=== PATIENT | male | born 1935 | race Caucasian/White ===

== ENCOUNTER 2016-11-12 16:13 | Inpatient (IN) | payer MEDICARE, MEDICAID ==
[~2016-11-12] VITALS: Ht 167.6 cm; Wt 124.5 kg
[2016-11-17] MEDS ORDERED: APIX5TAB PO (17:04)
[2016-11-17] MEDS ORDERED: LISI10TA3 PO (17:04)
[2016-11-17] MEDS ORDERED: ROSU10 PO (17:04)
[2016-11-17] MEDS ORDERED: HYDR25TA5 PO (17:04)
[2016-11-17] MEDS ORDERED: POTA10CA PO (17:04)
[2016-11-17] MEDS ORDERED: METO25TA6 PO (17:04)
[2016-11-17] MEDS ORDERED: COLA100C3 PO (17:04)
--- NOTE | 2016-11-19 17:50 | MH ---
cc: Kathy BUCIO M.D. DATE OF ADMISSION 11/24/2016 ADMISSION DIAGNOSIS Osteoarthritic degeneration of the left knee now being admitted for left total knee arthroplasty. 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 PAST MEDICAL HISTORY Other past history the patient has a history of: 1. Previous stroke 6 months ago. 2. Heart disease. 3. Hypertension. 4. Kidney problems. 5. Pacemaker. 6. Sleep apnea. CURRENT MEDICATIONS Include: 1. Eliquis which stopped four days before surgery. 2. Lisinopril. 3. Amlodipine. 4. Metoprolol. 5. Crestor. 6. Potassium citrate. 7. Temazepam. 8. Hydrochlorothiazide. 9. Colace. 10. Metamucil. PAST SURGICAL HISTORY Previous surgery includes: 1. Heart bypass. 2. Pacemaker insertion. 3. Left knee surgery years ago. REVIEW OF SYSTEMS Noncontributory. FAMILY HISTORY Noncontributory. SOCIAL HISTORY He does not smoke or drink. ALLERGIES HE IS ALLERGIC TO VOLTAREN, LASIX AND SULFA. PHYSICAL EXAMINATION GENERAL: We find a 81-year male well-developed, well-nourished, alert and oriented times three complaining of pain his left knee. VITAL SIGNS: Blood pressure 120/72, pulse 73 and irregular, respirations 20, temperature 97.8, pulse oximetry 97% on room air. HEENT: Eyes PERRL, EOMI. Ears, nose, mouth clear. NECK: Supple. LUNGS: Clear. HEART: Irregular rate. ABDOMEN: Soft. Positive bowel sounds, nontender. EXTREMITIES: Reveal the left knee to have crepitance on range of motion. Range of motion is from -10 and short of full extension to 80 degrees of flexion. He is neurovascularly intact to his toes. IMPRESSION At this time is severe painful osteoarthritic degeneration left knee. PLAN Admission for left total knee arthroplasty today. The patient given prescription for postop pain control in the office and understands to use Hibiclens scrub and Bactroban preoperatively and plans on going to rehab after surgery. Kathy Bucio MD JRR/KK /4:47 PM /5:32 PM
[2016-11-25] MEDS ORDERED: SODIUM CHLORID 0.9% 500 ML IV SCH (06:30)
[2016-11-25] MEDS ORDERED: INSULIN HUMAN REGULAR 1,000 UNITS/10 ML VIAL SQ PRN (06:30)
[2016-11-25] MEDS ORDERED: METOPROLOL TARTRATE 25 MG TAB PO PRN (06:30)
[2016-11-25] MEDS ORDERED: LACTATED RINGER'S 1000 ML IV SCH (06:30)
[2016-11-25] MEDS ORDERED: POVIDONE IODINE 5% (ANTISEPSIS KIT) 4 APPLICATIONS TOPICAL ONE (06:30)
[2016-11-25] MEDS ORDERED: CHLORHEXIDINE GLUCONATE 2 % 1 PACK (2 CLOTHS) TOP ONE (06:30)
[2016-11-25] MEDS ORDERED: SODIUM CHLOR 0.9% 250 ML INJ 250 ML ONE (06:35)
[2016-11-25] MEDS ORDERED: VANCOMYCIN HCL 1000 MG VIAL ONE (06:35)
[2016-11-25 06:36] VITALS: BP 159/73; PULSE 75; RESP 20; TEMP 97.7; O2SAT 97
[2016-11-25] MEDS ORDERED: VANCOMYCIN 1000 MG/NS 250 ML (for <70 kg) IV SCH ×2 (06:45)
[2016-11-25] MEDS ORDERED: ceFAZolin 2 GM PREMIX 50 ML IV SCH (06:45)
[2016-11-25] MEDS ORDERED: AMLO10TA2 PO (06:47)
[2016-11-25] MEDS ORDERED: ceFAZolin INJ 1,000 MG VIAL ONE (07:04)
[2016-11-25] MEDS ORDERED: MIDAZOLAM HCL 5 MG/5 ML VIAL ONE (07:14)
[2016-11-25] MEDS ORDERED: DEXAMETHASONE SOD PHOS 4 MG/ML VIAL ONE (07:14)
[2016-11-25] MEDS ORDERED: FAMOTIDINE 20 MG/2 ML VIAL ONE (07:14)
[2016-11-25] MEDS ORDERED: BUPIVACAINE LIPOSO PF 1.3% INJ 20 ML, BUPIVACAINE PF 0.25% INJ 20 ML in SODIUM CHLORIDE... P-ARTICULR SCH (08:00)
[2016-11-25] MEDS ORDERED: TRANEXAMIC ACID INJ 1,135 MG in SODIUM CHLORIDE 0.9% INJ 100 ML IV SCH ×2 (08:00→11:00)
[2016-11-25] MEDS ORDERED: ACETAMINOPHEN 325 MG TAB PO PRN (08:30)
[2016-11-25] MEDS ORDERED: Post-op Orders (for Pharmacy) MISC XX ONE (08:30)
[2016-11-25] MEDS ORDERED: ACETAMINOPHEN/HYDROcodone 325 MG/7.5 MG TAB PO PRN (08:30)
[2016-11-25] MEDS ORDERED: NALOXONE HCL 0.4 MG/ML AMP IV PRN (08:30)
[2016-11-25] MEDS ORDERED: MORPHINE SULFATE 30 MG/30 ML PCA IV SCH (08:30)
[2016-11-25] MEDS ORDERED: TEMAZEPAM 15 MG CAP PO PRN (08:30)
[2016-11-25] MEDS ORDERED: TRANEXAMIC ACID INJ 0 MG in SODIUM CHLORIDE 0.9% INJ 100 ML IV SCH (08:30)
[2016-11-25] MEDS ORDERED: diphenhydrAMINE HCL 50 MG/ML VIAL IV PRN (08:30)
[2016-11-25] MEDS ORDERED: SODIUM CHLORIDE 0.9% FLUSH 5 ML FLUSH IVF PRN (08:30)
[2016-11-25] MEDS ORDERED: ONDANSETRON HCL 4 MG/2 ML VIAL IVP PRN (08:30)
[2016-11-25] MEDS ORDERED: MISC-163 (08:33)
[2016-11-25] MEDS ORDERED: WALKER WHEELS/F1 MIS (08:33)
[2016-11-25] MEDS ORDERED: CPMMACHINE (08:33)
[2016-11-25] MEDS: DOCUSATE SODIUM 100 MG CAP PO SCH ×2 (09:00→19:40)
[2016-11-25] MEDS: SODIUM CHLORIDE 0.9% FLUSH 5 ML FLUSH IVF SCH ×2 (09:00→19:40)
[2016-11-25] MEDS ORDERED: fentaNYL CITRATE 250 MCG/5 ML AMP ONE (11:08)
[2016-11-25] MEDS ORDERED: *morphine SULFATE 8 MG/ML PERIprocedure ONLY ONE (11:15)
[2016-11-25] MEDS: LACTATED RINGER'S 1000 ML INJ 1,000 ML IV SCH ×3 (11:23→21:10)
--- NOTE | 2016-11-25 11:31 | HHI.PR ---
Immediate Post Op Note Procedure Date: Nov 25, 2016 Pre Op Diagnosis: Osteoarthritic Degeneration Left Knee Post Op Diagnosis: Same Surgeon: Kathy Rodríguez MD City Magistrate(s): VIRGINIE Kincaid Procedure: Left Total Knee Arthroplasty Findings: Osteoarthritic Degeneration Left Knee Complications: None Specimen(s) removed: None Estimated blood loss: 200cc. Anesthesia: General Drains: None IVF (1100cc.) Tourniquet time (min at mmHg) N/A Patient to: PACU Patient Condition: Good Implant/Devices: Other (1. Concensus Femoral Component Size 5. 2. Concensus Tibial Component Size 4. 3. Concensus Patella Size 2. 4. Concensus Tibial Insert Size 3-4 , 16mm. ) Date/Time of Procedure: SEE SURGICAL CARE RECORD Elia Johnson Nov 25, 2016 11:31
[2016-11-25 12:00] VITALS: BP 106/56; PULSE 79; RESP 18; TEMP 96.2; O2SAT 95
[2016-11-25] MEDS ORDERED: BUPIVACAINE HCL PF 0.5% 30 ML VIAL NB ONE (12:25)
--- NOTE | 2016-11-25 12:50 | RADRPT ---
EXAM DATE/TIME: 11/25/2016 11:36 [facility] COMPARISON: No previous studies available for comparison. INDICATIONS : Post op left knee. MEDICAL HISTORY: Cardiovascular disease. SURGICAL HISTORY: None. ENCOUNTER: Initial ACUITY: 1 day PAIN SCORE: 8/10 LOCATION: Left knee. FINDINGS: The patient is status post left total knee arthroplasty. The prosthesis appears to be in good positi on. There is no acute fracture or dislocation. Surgical clips are noted along the medial aspect of the left leg likely related to previous saphenous vein harvesting. CONCLUSION: 1. Status post left total knee replacement with prosthesis in good position. Elia Santos MD on November 25, 2016 at 12:33 Board Certified Radiologist. This report was verified electronically.
--- NOTE | 2016-11-25 12:56 | PD.CONS ---
HPI Service [facility] Consult Requested By Doctor Xavier Bucio Reason for Consult Medical Management Primary Care Physician THERESA Cisneros Diagnoses: History of Present Illness This is a pleasant 81 y/o Male with CAD, OA, Hyperlipidemia, Hypertension, DANA, Atrial Fibrillation Dacosta's Palsy, who came with acute numbness and tingling of the left face and arm , seen in his bedroom in the presence of his Mrs. Pereira and his Niece Miss Vera, he has Severe Painful Osteoarthritic degeneration of the left knee brought in for scheduled procedure Leeft total knee arthroplasty, he has CHF and has Lasix as needed for Shortness of breath, will follow BMP for electrolyte replacement for tomorrow also will get BNP for tomorrow. he has 1000 ml fluid restriction. Past Family Social History Allergies: Coded Allergies: Lasix (Verified Allergy, Severe, ANAPHYLAXIS, 11/18/16) Seafood (Verified Allergy, Severe, 11/18/16) Voltaren (Verified Allergy, Severe, ANAPHYLAXIS, 11/18/16) MRI PRECAUTION (Verified Adverse Reaction, Severe, 11/18/16) PT HAS PACER Sulfa (Verified Adverse Reaction, Severe, HEAD ACHE, 11/18/16) Past Medical History CAD OA Hyperlipidemia Hypertension Obstructive Sleep Apnea Dacosta's Palsy Atrial Fibrillation Past Surgical History CABG Bladder Surgery removal Pacemaker placement Carpal tunnel surgery Reported Medications Reported Meds & Active Scripts Active Reported Amlodipine (Amlodipine Besylate) 10 Mg Tab 10 Mg PO DAILY Potassium Chloride ER (Potassium Chloride) 10 Meq Cap 10 Meq PO TID Crestor (Rosuvastatin Calcium) 10 Mg Tab 10 Mg PO HS Metoprolol Succinate ER 24 HR (Metoprolol Succinate) 25 Mg Tab 18.75 Mg PO DAILY PT STATES HE TAKES 3/4 OF 25MG TAB Lisinopril 10 Mg Tab 10 Mg PO DAILY Hydrochlorothiazide 25 Mg Tab 25 Mg PO DAILY PRN Colace (Docusate Sodium) 100 Mg Cap 100 Mg PO BID Eliquis (Apixaban) 5 Mg Tab 5 Mg PO BID Active Ordered Medications Current Medications Medications (Trade) Dose Ordered Sig/Salvador Route Start Time Stop Time Status Last Admin Lactated Ringer's 1,000 ml @ 30 mls/hr Q24H IV 11/25/16 06:30 11/25/16 06:30 (NS 500 ml Inj) 500 ml @ 30 mls/hr [id number] IV 11/25/16 06:30 11/26/16 06:29 (Betadine 7.5% Scrub) 1 applic ONCE TOP 11/25/16 06:45 11/28/16 06:44 Chlorhexidine Gluconate 1 applic 1 applic ONCE TOP 11/25/16 06:45 11/28/16 06:44 Tranexamic Acid 1135 mg/Sodium Chloride 111.35 ml @ 200 mls/ hr ONCE IV 11/25/16 08:00 11/25/16 14:00 11/25/16 09:03 (Exparel Pf 1.3% Inj/Marcaine Pf 0.25% Inj/NS Inj) 140 ml @ 200 mls/hr ONCE P-ARTICULR 11/25/16 08:00 11/25/16 14:00 11/25/16 09:02 (Norvasc) 10 mg DAILY PO 11/25/16 09:00 (Colace) 100 mg BID PO 11/25/16 09:00 (Hydrodiuril) 25 mg DAILY PRN PO 11/25/16 08:30 (Prinivil) 10 mg DAILY PO 11/26/16 09:00 (Toprol Xl) 18.75 mg DAILY PO 11/26/16 09:00 (KCl) 10 meq TID PO 11/25/16 09:00 Atorvastatin Calcium 20 mg 20 mg HS PO 11/25/16 21:00 (Lr 1000 ml Inj) 1,000 ml @ 80 mls/hr [id number] IV 11/25/16 08:27 11/25/16 11:23 (NS Flush) 2 ml UNSCH PRN IVF 11/25/16 08:30 IV Flush 2 ml 2 ml BID IVF 11/25/16 09:00 (Ancef Inj/NS Inj) 100 ml @ 200 mls/hr Q6H IV 11/25/16 14:00 11/26/16 02:29 (Lovenox Inj) 30 mg Q12H SQ 11/26/16 10:00 ([place] 7.5-325 Mg) 1 tab Q4H PRN PO 11/25/16 08:30 ([place] 7.5-325 Mg) 2 tab Q4H PRN PO 11/25/16 08:30 (Tylenol) 650 mg Q6H PRN PO 11/25/16 08:30 (Theragran M Tab) 1 tab BID PO 11/26/16 21:00 01/25/17 20:59 (Zofran Inj) 4 mg Q6H PRN IVP 11/25/16 08:30 (Colace) 100 mg BID PO 11/26/16 21:00 (Restoril) 15 mg HS PRN PO 11/25/16 08:30 (Narcan Inj) 0.4 mg UNSCH PRN IV 11/25/16 08:30 (Benadryl Inj) 25 mg Q6H PRN IV 11/25/16 08:30 (Morphine 1 Mg/ ml CLINICAL RN MANAGER) 30 mg UNSCH IV 11/25/16 08:30 11/25/16 11:25 CLINICAL RN MANAGER Dosage Infused (Pha) 1 Q8HR .XX 11/25/16 14:00 Family History Father at 63 of heart disease Mother in her mid 70s of heart disease and had history of TIAs Social History Occasional alcohol use denies other toxic habits. Physical Exam Vital Signs Vital Signs Date Time Temp Pulse Resp B/P Pulse Ox O2 Delivery O2 Flow Rate FiO2 11/25/16 12:00 79 16 114/57 94 Nasal Cannula 4 11/25/16 11:45 77 16 105/64 91 Nasal Cannula 4 11/25/16 11:30 79 16 107/59 93 Nasal Cannula 4 11/25/16 11:25 12 11/25/16 11:15 78 16 112/60 92 Nasal Cannula 4 11/25/16 11:00 99.0 91 16 142/84 91 Nasal Cannula 4 11/25/16 06:36 97.7 75 20 159/73 97 Physical Exam GENERAL: This is a well-nourished, well-developed patient, in no apparent distress. SKIN: No rashes, ecchymoses or lesions. Cool and dry. HEAD: Atraumatic. Normocephalic. No temporal or scalp tenderness. EYES: Pupils equal round and reactive. Extraocular motions intact. No scleral icterus. No injection or drainage. ENT: Nose without bleeding, purulent drainage or septal hematoma. Throat without erythema, tonsillar hypertrophy or exudate. Uvula midline. Airway patent. NECK: Trachea midline. No JVD or lymphadenopathy. Supple, nontender, no meningeal signs. CARDIOVASCULAR: Regular rate and rhythm without murmurs, gallops, or rubs. RESPIRATORY: Clear to auscultation. Breath sounds equal bilaterally. No wheezes , rales, or rhonchi. GASTROINTESTINAL: Abdomen soft, non-tender, nondistended. No hepato-splenomegaly , or palpable masses. No guarding. MUSCULOSKELETAL: Extremities without clubbing, cyanosis, or edema. No joint tenderness, effusion, or edema noted. No calf tenderness. Negative Homans sign bilaterally. NEUROLOGICAL: Awake and alert. Cranial nerves II through XII intact. Motor and sensory grossly within normal limits. Five out of 5 muscle strength in all muscle groups. Normal speech. Laboratory Laboratory Tests Test 11/25/16 06:33 Blood Type A POSITIVE Antibody Screen NEGATIVE Assessment and Plan Assessment and Plan 1. Severe OA, with Diagnosis of Osteoarthritic painful Degeneration of the Left Knee status post Left Total Knee Arthroplasty, by Doctor Xavier Bucio Pain management, Horizontal Drill Operator for Discharge planning and Physical Therapy. 2. Dacosta's Palsy by history 3. Atrial Fibrillation 4. Hypertension controlled. 5. Obstructive Sleep Apnea 6. CAD status post CABG x 4 7. CHF Mild reduction of Left Ventricular function EF 50% 8. Obesity strongly recommended diet and exercise as outpatient. DVT prophylaxis as per Orthopedic Surgery Continue present care follow BMP, Mag level, BNP in am tomorrow adjust IV fluids as needed to keep patient hydrated but avoid Overload will follow in three hours to try to titrate or remove IV fluids if patient eating well. Code Status Full Code Discussed Condition With Patient in the room, Mrs. Pereira and his Niece Miss Vera, nurse present in the room Harris Bustos MD Nov 25, 2016 12:56
[2016-11-25] MEDS: POTASSIUM CHLORIDE 10 MEQ CAP PO SCH ×2 (13:51→18:27)
[2016-11-25] MEDS: PCA - TOTAL MG MORPHINE DELIVERED PER SHIFT SCH ×2 (14:00→22:00)
[2016-11-25] MEDS ORDERED: ONDANSETRON HCL 4 MG/2 ML VIAL IV PUSH ONE (14:30)
[2016-11-25] MEDS ORDERED: ePHEDrine/NS 25 MG/5 ML SYR IV ONE (14:30)
[2016-11-25] MEDS ORDERED: LACTATED RINGER'S 1000 ML INJ 1,000 ML IV ONE (14:30)
[2016-11-25] MEDS ORDERED: PROPOFOL 200 MG/20 ML AMP IV ONE (14:30)
[2016-11-25] MEDS ORDERED: PHENYLEPH/NS 1000 MCG/10 ML SYR IV ONE (14:30)
[2016-11-25] MEDS ORDERED: NEOSTIGMINE 3 MG/3 ML SYR IV ONE (14:30)
[2016-11-25 16:00] VITALS: BP 115/56; PULSE 90; RESP 18; TEMP 96.1; O2SAT 97
[2016-11-25 17:04] VITALS: O2SAT 98
[2016-11-25] MEDS: ATORVASTATIN 20 MG TAB PO SCH (19:40)
[2016-11-25 20:30] VITALS: BP 129/65; PULSE 88; RESP 18; TEMP 97.2; O2SAT 95
[2016-11-26] VITALS (7 sets, daily range): BP systolic 96–147; BP diastolic 50–67; PULSE 71–95; RESP 17–19; TEMP 96.3–98.4; O2SAT 92–95
[2016-11-26] MEDS ORDERED: HYDROCHLOROTHIAZIDE 25 MG TAB PO ONE (00:45)
[2016-11-26] MEDS: CHLORHEXIDINE GLUCONATE 4% SOLN 120 ML BTL TOP SCH (04:26)
[2016-11-26] MEDS: POVIDONE IODINE 7.5% SCRUB 118 ML BOTTLE TOP SCH (04:26)
[2016-11-26 05:48] LABS: HEMATOCRIT 37.3 % (39.0-51.0); REVIEW FLAG FINAL
[2016-11-26] MEDS: PCA - TOTAL MG MORPHINE DELIVERED PER SHIFT SCH (05:52)
[2016-11-26 06:18] LABS: BICARBONATE 28.7 MEQ/L (21.0-32.0); MAGNESIUM 2.1 MG/DL (1.5-2.5); POTASSIUM 4.7 MEQ/L (3.5-5.1)
[2016-11-26] MEDS: POTASSIUM CHLORIDE 10 MEQ CAP PO SCH ×3 (08:08→17:31)
[2016-11-26] MEDS: DOCUSATE SODIUM 100 MG CAP PO SCH ×2 (08:08→19:30)
[2016-11-26] MEDS: LISINOPRIL 10 MG TAB PO SCH (08:08)
[2016-11-26] MEDS: SODIUM CHLORIDE 0.9% FLUSH 5 ML FLUSH IVF SCH ×2 (08:09→19:31)
--- NOTE | 2016-11-26 08:43 | PD.ORT.PN ---
Subjective Subjective Remarks pt comfortable today. Block still on. Objective Vitals Vital Signs Date Time Temp Pulse Resp B/P Pulse Ox O2 Delivery O2 Flow Rate FiO2 11/26/16 08:00 97.1 71 18 135/50 92 11/26/16 04:40 96.7 86 19 147/67 92 11/26/16 00:40 97.0 79 19 120/59 95 11/25/16 20:30 97.2 88 18 129/65 95 11/25/16 17:04 98 Nasal Cannula 2.00 11/25/16 16:00 96.1 90 18 115/56 97 11/25/16 14:00 15 11/25/16 12:00 79 16 114/57 94 Nasal Cannula 4 11/25/16 12:00 96.2 79 18 106/56 95 11/25/16 11:45 77 16 105/64 91 Nasal Cannula 4 11/25/16 11:30 79 16 107/59 93 Nasal Cannula 4 11/25/16 11:25 12 11/25/16 11:15 78 16 112/60 92 Nasal Cannula 4 11/25/16 11:00 99.0 91 16 142/84 91 Nasal Cannula 4 I/O 11/25/16 11/25/16 11/25/16 11/26/16 11/26/16 11/26/16 07:00 15:00 23:00 07:00 15:00 23:00 Intake Total 1200 ml 1173 ml 424 ml 480 ml Output Total 200 ml 175 ml 1000 ml Balance 1000 ml 998 ml 424 ml -520 ml Intake Oral 0 ml 360 ml 480 ml IV Total 100 ml 813 ml 424 ml Other 1100 ml Output Urine Total 0 ml 175 ml 1000 ml Estimated Blood Loss 200 ml Other 0 ml Bladder Scan Volume Amount 612 ml # Bowel Movements 0 0 Result Diagram: 11/26/16 0529 11/26/16 0529 Objective Remarks Dressing dry and intact. In bed at moment. No calf tenderness. Assessment & Plan Ortho Post Op Day #: 1 Problem List: Assessment and Plan OOB,PT, CPM, daily wound care. Kathy Bucio MD Nov 26, 2016 08:43
[2016-11-26] MEDS ORDERED: METOPROLOL SUCCINATE 25 MG EXTENDED RELEASE TAB PO SCH (09:00)
--- NOTE | 2016-11-26 09:23 | HHI.PR ---
Subjective Remarks This is a pleasant 81 y/o Male with CAD, OA, Hyperlipidemia, Hypertension, DANA, Atrial Fibrillation Dacosta's Palsy, who came with acute numbness and tingling of the left face and arm , seen in his bedroom in the presence of his Mrs. Pereira and his Niece Miss Vera, he has Severe Painful Osteoarthritic degeneration of the left knee brought in for scheduled procedure Leeft total knee arthroplasty, he has CHF and has Lasix as needed for Shortness of breath, will follow BMP for electrolyte replacement for tomorrow also will get BNP for tomorrow. he has 1000 ml fluid restriction. 11/26 stable seen in his bedroom and discussed with nurse Mr. Denton no nausea, vomit or diarrhea clean lungs, will continue low IV fluids in 30ml per hour and continue diet, due to mild increase in creatinine, following, BNP within normal limits, no volume overload. Objective Vital Signs Date Time Temp Pulse Resp B/P Pulse Ox O2 Delivery O2 Flow Rate FiO2 11/26/16 08:57 93 21 11/26/16 08:00 97.1 71 18 135/50 92 11/26/16 04:40 96.7 86 19 147/67 92 11/26/16 00:40 97.0 79 19 120/59 95 11/25/16 20:30 97.2 88 18 129/65 95 11/25/16 17:04 98 Nasal Cannula 2.00 11/25/16 16:00 96.1 90 18 115/56 97 11/25/16 14:00 15 11/25/16 12:00 79 16 114/57 94 Nasal Cannula 4 11/25/16 12:00 96.2 79 18 106/56 95 11/25/16 11:45 77 16 105/64 91 Nasal Cannula 4 11/25/16 11:30 79 16 107/59 93 Nasal Cannula 4 11/25/16 11:25 12 11/25/16 11:15 78 16 112/60 92 Nasal Cannula 4 11/25/16 11:00 99.0 91 16 142/84 91 Nasal Cannula 4 I/O 11/25/16 11/25/16 11/25/16 11/26/16 11/26/16 11/26/16 07:00 15:00 23:00 07:00 15:00 23:00 Intake Total 1200 ml 1173 ml 424 ml 480 ml Output Total 200 ml 175 ml 1000 ml Balance 1000 ml 998 ml 424 ml -520 ml Intake Oral 0 ml 360 ml 480 ml IV Total 100 ml 813 ml 424 ml Other 1100 ml Output Urine Total 0 ml 175 ml 1000 ml Estimated Blood Loss 200 ml Other 0 ml Bladder Scan Volume Amount 612 ml # Bowel Movements 0 0 Result Diagram: 11/26/16 0529 11/26/16 0529 Imaging Last Impressions Knee X-Ray 11/25/16 0827 Signed Impressions: Service Date/Time: Friday, November 25, 2016 11:36 - CONCLUSION: 1. Status post left total knee replacement with prosthesis in good position. Elia Santos MD Procedures Left Total Knee Arthroplasty, by Doctor Xavier Bucio 11/25/16 Other Results Laboratory Tests Test 11/25/16 11/26/16 06:33 05:29 Blood Type A POSITIVE Antibody Screen NEGATIVE Hemoglobin 12.3 GM/DL Hematocrit 37.3 % Sodium Level 138 MEQ/L Potassium Level 4.7 MEQ/L Chloride Level 102 MEQ/L Carbon Dioxide Level 28.7 MEQ/L Anion Gap 7 MEQ/L Blood Urea Nitrogen 30 MG/DL Creatinine 1.33 MG/DL Estimat Glomerular Filtration 52 ML/MIN Rate Random Glucose 126 MG/DL Calcium Level 8.2 MG/DL Magnesium Level 2.1 MG/DL B-Type Natriuretic Peptide 93 PG/ML Objective Remarks GENERAL: Morbid Obesity. SKIN: No rashes, ecchymoses or lesions. Cool and dry. HEAD: Atraumatic. Normocephalic. No temporal or scalp tenderness. EYES: Pupils equal round and reactive. Extraocular motions intact. No scleral icterus. No injection or drainage. ENT: Nose without bleeding, purulent drainage or septal hematoma. Throat without erythema, tonsillar hypertrophy or exudate. Uvula midline. Airway patent. NECK: Trachea midline. No JVD or lymphadenopathy. Supple, nontender, no meningeal signs. CARDIOVASCULAR: Regular rate and rhythm without murmurs, gallops, or rubs. RESPIRATORY: Clear to auscultation. Breath sounds equal bilaterally. No wheezes , rales, or rhonchi. GASTROINTESTINAL: Abdomen soft, non-tender, nondistended. No hepato-splenomegaly , or palpable masses. No guarding. MUSCULOSKELETAL: left knee with Orthotics. NEUROLOGICAL: Awake and alert. Medications and IVs Current Medications Medications (Trade) Dose Ordered Sig/Salvador Route Start Time Stop Time Status Last Admin (Betadine 7.5% Scrub) 1 applic ONCE TOP 11/25/16 06:45 11/28/16 06:44 (Hibiclens 4% Top Soln) 1 applic ONCE TOP 11/25/16 06:45 11/28/16 06:44 (Norvasc) 10 mg DAILY PO 11/25/16 09:00 11/26/16 08:08 (Colace) 100 mg BID PO 11/25/16 09:00 11/26/16 08:08 (Hydrodiuril) 25 mg DAILY PRN PO 11/25/16 08:30 (Prinivil) 10 mg DAILY PO 11/26/16 09:00 11/26/16 08:08 (Toprol Xl) 18.75 mg DAILY PO 11/26/16 09:00 (KCl) 10 meq TID PO 11/25/16 09:00 11/26/16 08:08 Atorvastatin Calcium 20 mg 20 mg HS PO 11/25/16 21:00 11/25/16 19:40 (Lr 1000 ml Inj) 1,000 ml @ 30 mls/hr Q24H IV 11/25/16 08:27 11/25/16 11:23 (NS Flush) 2 ml UNSCH PRN IVF 11/25/16 08:30 (NS Flush) 2 ml BID IVF 11/25/16 09:00 11/26/16 08:09 (Lovenox Inj) 30 mg Q12H SQ 11/26/16 10:00 ([place] 7.5-325 Mg) 1 tab Q4H PRN PO 11/25/16 08:30 ([place] 7.5-325 Mg) 2 tab Q4H PRN PO 11/25/16 08:30 (Tylenol) 650 mg Q6H PRN PO 11/25/16 08:30 (Theragran M Tab) 1 tab BID PO 11/26/16 21:00 01/25/17 20:59 (Zofran Inj) 4 mg Q6H PRN IVP 11/25/16 08:30 (Restoril) 15 mg HS PRN PO 11/25/16 08:30 (Narcan Inj) 0.4 mg UNSCH PRN IV 11/25/16 08:30 11/26/16 13:00 (Benadryl Inj) 25 mg Q6H PRN IV 11/25/16 08:30 11/26/16 13:00 (Morphine 1 Mg/ ml PRIVATE DUTY RN) 30 mg UNSCH IV 11/25/16 08:30 11/26/16 13:00 11/25/16 11:25 PRIVATE DUTY RN Dosage Infused (Pha) 1 Q8HR .XX 11/25/16 14:00 11/26/16 13:00 11/26/16 05:52 A/P Assessment and Plan 1. Severe OA, with Diagnosis of Osteoarthritic painful Degeneration of the Left Knee status post Left Total Knee Arthroplasty, by Doctor Xavier Bucio Pain management, Product Applications Engineer for Discharge planning and Physical Therapy. 2. Dacosta's Palsy by history 3. Atrial Fibrillation has 4. Hypertension controlled. 5. Obstructive Sleep Apnea not using CPAP. 6. CAD status post CABG x 4 7. CHF Mild reduction of Left Ventricular function EF 50% 8. Morbid Obesity strongly recommended diet and exercise as outpatient. weight loss warranted. 9. Mild increase in Creatinine today more liberal in fluid intake following for volume overload. DVT prophylaxis Lovenox. adjust IV fluids as needed to keep patient hydrated but avoid Overload will follow Code Status Full Code Discussed Condition With Patient in the room and nurse Mr. Denton. Discharge Planning as per his attending physician, Harris Bustos MD Nov 26, 2016 09:23
[2016-11-26] MEDS: METOPROLOL SUCCINATE 25 MG EXTENDED RELEASE TAB PO SCH (10:00)
[2016-11-26] MEDS: ENOXAPARIN SODIUM 30 MG/0.3 ML SYRINGE SQ SCH ×2 (10:22→21:42)
[2016-11-26] MEDS: ACETAMINOPHEN/HYDROcodone 325 MG/7.5 MG TAB PO PRN ×2 (13:00→17:31)
[2016-11-26] MEDS: ATORVASTATIN 20 MG TAB PO SCH (19:30)
[2016-11-26] MEDS: MULTIVITAMINS/MINERALS THERAPEUTIC TAB PO SCH (19:30)
[2016-11-26] MEDS: LACTATED RINGER'S 1000 ML INJ 1,000 ML IV SCH (19:31)
[2016-11-26] MEDS ORDERED: DOCUSATE SODIUM 100 MG CAP PO SCH (21:00)
[2016-11-27] VITALS (8 sets, daily range): BP systolic 123–158; BP diastolic 59–76; PULSE 72–105; RESP 17–18; TEMP 96.6–99.2; O2SAT 93–95
--- NOTE | 2016-11-27 01:40 | RADRPT ---
EXAM DATE/TIME: 11/27/2016 00:53 [facility] COMPARISON: No previous studies available for comparison. INDICATIONS : Abdominal pain and nausea. MEDICAL HISTORY : Gallstones. Renal disease. Bladder stones. SURGICAL HISTORY : Urinary bladder stone removal. Lithotripsy. ENCOUNTER: Initial ACUITY: 1 day PAIN SCORE: 8/10 LOCATION: all quadrants. FINDINGS: Limited secondary to body habitus. There are dilated loops of small bowel seen. There is colonic gas present. A developing small bowel obstruction or ileus are differential diagnostic considerations. Os seous structures are intact. CONCLUSION: Dilated small bowel loops with colonic gas seen. Ileus versus developing small bowel obstruction. Alonso Reyes MD on November 27, 2016 at 1:38 Board Certified Radiologist. This report was verified electronically.
--- NOTE | 2016-11-27 01:40 | RADRPT ---
EXAM DATE/TIME: 11/27/2016 00:50 [facility] COMPARISON: CHEST SINGLE AP, August 01, 2015, 8:38. INDICATIONS : Short of breath. MEDICAL HISTORY : Hypercholesterolemia. Congestive heart failure. Myocardial infarction. Cardiac arrhythmia. Hypertensi on. Hyperlipidemia. A-Fib. SURGICAL HISTORY : CABG. Pacemaker. Left GSV removed for caridac surgery. Urinary bladder stone removal. Lithotripsy. ENCOUNTER: Initial ACUITY: 1 day PAIN SCORE: 0/10 LOCATION: Bilateral chest FINDINGS: Sternotomy wires are present. Pacer device from a left subclavian transvenous approach noted. Old rig ht sixth posterior rib fracture. Atelectatic changes at the lung bases. Cardiomegaly. CONCLUSION: Mild basilar atelectasis. Alonso Reyes MD on November 27, 2016 at 1:39 Board Certified Radiologist. This report was verified electronically.
[2016-11-27 01:44] LABS: AUTOMATED NEUTROPHIL # 7.7 TH/MM3 (1.8-7.7); BASOPHIL % 0.3 % (0.0-2.0); EOSINOPHIL % 0.2 % (0.0-4.0); HEMATOCRIT 36.6 % (39.0-51.0); LYMPH % 6.8 % (9.0-44.0); LYMPHOCYTE # 0.7 TH/MM3 (1.0-4.8); MEAN CELL VOLUME 76.3 FL (80.0-100.0); MEAN CORPUSCULAR HEMOGLOBIN 24.5 PG (27.0-34.0); MEAN CORPUSCULAR HGB CONC 32.1 % (32.0-36.0); MONO % 12.4 % (0.0-8.0); NEUT % 80.3 % (16.0-70.0); PLATELET COUNT 163 TH/MM3 (150-450); RED CELL DISTRIBUTION WIDTH 15.2 % (11.6-17.2); WHITE BLOOD COUNT 9.5 TH/MM3 (4.0-11.0)
[2016-11-27 01:45] LABS: HEMO FLAGS AUTO DIFF
[2016-11-27 02:01] LABS: ALT (GPT) 17 U/L (12-78); ANION GAP 8 MEQ/L (5-15); AST (GOT) 19 U/L (15-37); BICARBONATE 30.4 MEQ/L (21.0-32.0); BLOOD UREA NITROGEN 29 MG/DL (7-18); CHLORIDE 100 MEQ/L (98-107); GLOMERULAR FILTRATION RATE 57 ML/MIN (>89); MAGNESIUM 2.1 MG/DL (1.5-2.5); POTASSIUM 4.3 MEQ/L (3.5-5.1); SODIUM (NA) 138 MEQ/L (136-145)
[2016-11-27 02:04] LABS: ALKALINE PHOSPHATASE 67 U/L (45-117); TOTAL BILIRUBIN ADULT 0.6 MG/DL (0.2-1.0)
[2016-11-27 02:25] LABS: OVALOCYTES 2+ (NORMAL); SCAN/DIFF AUTO DIFF CONFIRMED
[2016-11-27 02:41] LABS: BLOOD, URINE NEG (NEG); COMMENT (UR) CULTURE INDICATED; CULTURE IF INDICATED CULTURE INDICATED; GLUCOSE,URINE NEG (NEG); KETONE, URINE NEG (NEG); MUCUS URINE FEW /lpf (OCC); NITRITE,URINE NEG (NEG); SQUAMOUS EPITHELIAL CELL URINE <1 /hpf (0-5); URINE COLOR YELLOW (YELLW/STRAW)
[2016-11-27] MEDS: CHLORHEXIDINE GLUCONATE 4% SOLN 120 ML BTL TOP SCH (03:02)
[2016-11-27] MEDS: POVIDONE IODINE 7.5% SCRUB 118 ML BOTTLE TOP SCH (03:02)
[2016-11-27 06:09] LABS: HEMATOCRIT 36.1 % (39.0-51.0); REVIEW FLAG FINAL
[2016-11-27 06:31] LABS: BICARBONATE 28.9 MEQ/L (21.0-32.0); POTASSIUM 4.3 MEQ/L (3.5-5.1)
[2016-11-27] MEDS: ENOXAPARIN SODIUM 30 MG/0.3 ML SYRINGE SQ SCH ×2 (08:30→22:11)
[2016-11-27] MEDS: LISINOPRIL 10 MG TAB PO SCH (08:31)
[2016-11-27] MEDS: POTASSIUM CHLORIDE 10 MEQ CAP PO SCH ×3 (08:31→17:00)
[2016-11-27] MEDS: MULTIVITAMINS/MINERALS THERAPEUTIC TAB PO SCH ×2 (08:31→20:16)
[2016-11-27] MEDS: DOCUSATE SODIUM 100 MG CAP PO SCH ×2 (08:32→20:15)
[2016-11-27] MEDS: SODIUM CHLORIDE 0.9% FLUSH 5 ML FLUSH IVF SCH ×2 (08:32→20:16)
[2016-11-27] MEDS: METOPROLOL SUCCINATE 25 MG EXTENDED RELEASE TAB PO SCH (08:33)
[2016-11-27] MEDS: ACETAMINOPHEN/HYDROcodone 325 MG/7.5 MG TAB PO PRN (08:34)
[2016-11-27] MEDS: HYDROCHLOROTHIAZIDE 25 MG TAB PO PRN ×2 (08:37→08:39)
[2016-11-27] MEDS ORDERED: BACITRACIN OINT 0.9 GM PKT TOP PRN (10:15)
--- NOTE | 2016-11-27 11:44 | PD.ORT.PN ---
Subjective Subjective Remarks pt complaining of nausea today. Left knee is doing well. Objective Vitals Vital Signs Date Time Temp Pulse Resp B/P Pulse Ox O2 Delivery O2 Flow Rate FiO2 11/27/16 07:56 98.5 91 18 158/70 95 11/27/16 06:41 72 11/27/16 04:26 97.3 88 17 123/59 93 11/27/16 00:31 99.2 105 18 134/76 93 11/26/16 20:40 98.4 91 17 129/60 92 11/26/16 16:00 96.3 90 18 102/62 93 11/26/16 12:00 96.3 95 18 96/58 95 I/O 11/26/16 11/26/16 11/26/16 11/27/16 11/27/16 11/27/16 07:00 15:00 23:00 07:00 15:00 23:00 Intake Total 424 ml 1080 ml 480 ml 530 ml Output Total 1600 ml 525 ml 525 ml Balance 424 ml -520 ml -45 ml 5 ml Intake Oral 1080 ml 480 ml 240 ml IV Total 424 ml 290 ml Output Urine Total 1600 ml 525 ml 525 ml Bladder Scan Volume Amount 144 ml # Bowel Movements 0 0 Result Diagram: 11/27/16 0530 11/27/16 0530 Imaging Last 24 hours Impressions Chest X-Ray 11/27/16 0000 Signed Impressions: Service Date/Time: November 00:50 - CONCLUSION: Mild basilar atelectasis. Alonso Reyes MD Abdomen X-Ray 11/27/16 0000 Signed Impressions: Service Date/Time: November 00:53 - CONCLUSION: Dilated small bowel loops with colonic gas seen. Ileus versus developing small bowel obstruction. Alonso Reyes MD Objective Remarks Dressing dry and intact. In bed at moment. No calf tenderness. Medical checking for ileus. Assessment & Plan Ortho Post Op Day #: 2 Problem List: Assessment and Plan OOB,PT, CPM, daily wound care. Medical management for possible ileus. Kathy Bucio MD Nov 27, 2016 11:44
[2016-11-27] MEDS: PANTOPRAZOLE SODIUM 40 MG VIAL IV PUSH SCH (12:24)
[2016-11-27] MEDS: SODIUM CHLOR 0.9% 1000 ML INJ 1,000 ML IV SCH (12:24)
--- NOTE | 2016-11-27 16:09 | HHI.PR ---
Subjective Remarks f/u for medical management. Patient c/o abdominal pain since yesterday. + nauseated and decreased appetite. Denied any emesis. Patient is making flatus and has hiccups. Objective Vitals Vital Signs Date Time Temp Pulse Resp B/P Pulse Ox O2 Delivery O2 Flow Rate FiO2 11/27/16 12:00 96.6 92 18 149/68 95 11/27/16 07:56 98.5 91 18 158/70 95 11/27/16 06:41 72 11/27/16 04:26 97.3 88 17 123/59 93 11/27/16 00:31 99.2 105 18 134/76 93 11/26/16 20:40 98.4 91 17 129/60 92 I/O 11/26/16 11/26/16 11/26/16 11/27/16 11/27/16 11/27/16 07:00 15:00 23:00 07:00 15:00 23:00 Intake Total 424 ml 1080 ml 480 ml 530 ml 211 ml Output Total 1600 ml 525 ml 525 ml Balance 424 ml -520 ml -45 ml 5 ml 211 ml Intake Oral 1080 ml 480 ml 240 ml IV Total 424 ml 290 ml 211 ml Output Urine Total 1600 ml 525 ml 525 ml Bladder Scan Volume Amount 144 ml # Bowel Movements 0 0 Result Diagram: 11/27/1652911/27/16529 Objective Remarks GENERAL: in NAD CARDIOVASCULAR: Regular rate and rhythm without murmurs, gallops, or rubs. RESPIRATORY: Breath sounds equal bilaterally. No accessory muscle use. GASTROINTESTINAL: Abdomen soft, non-tender, + TTP in epigastric area. no peritoneal signs. decrease BS. MUSCULOSKELETAL: No cyanosis, or edema. BACK: Nontender without obvious deformity. No CVA tenderness. Medications and IVs Current Medications Lactated Ringer's 1,000 ml @ 30 mls/hr Q24H IV Last administered on 11/25/16t 06:30; Start 11/25/16 at 06:30; Stop 11/25/16 at 20:49; Status DC Sodium Chloride (NS 500 ml Inj) 500 ml @ 30 mls/hr [id number] IV ; Start 11/25/16 at 06:30; Stop 11/25/16 at 20:49; Status DC Insulin Human Regular (NovoLIN R INJ) See Protocol Table ... UNSCH X1 PRN SQ SEE PROTOCOL; Start 11/25/16 at 06:30; Stop 11/25/16 at 20:49; Status DC Metoprolol Tartrate (Lopressor) 25 mg UNSCH X1 PRN PO SEE LABEL COMMENTS; Start 11/25/16 at 06:30; Stop 11/25/16 at 20:49; Status DC Chlorhexidine Gluconate (Chlorhexidine 2% Cloth) USE 3 PACKS FOR BATH O... ONCE ONCE TOP ; Start 11/25/16 at 06:30; Stop 11/25/16 at 06:35; Status DC Povidone Iodine (Betadine 5% Antisepsis Kit) APPLY TO EACH NARE AT LEAST ONE H... ONCE ONCE TOPICAL ; Start 11/25/16 at 06:30; Stop 11/25/16 at 06:36; Status DC Povidone Iodine (Betadine 7.5% Scrub) 1 applic ONCE TOP ; Start 11/25/16 at 06: 45; Stop 11/28/16 at 06:44 Chlorhexidine Gluconate 1 applic 1 applic ONCE TOP ; Start 11/25/16 at 06:45; Stop 11/28/16 at 06:44 Cefazolin Sodium/ Dextrose 50 ml @ 100 mls/hr ROOF TRUSS MACHINE TENDER IV ; Start 11/25/16 at 06:45; Stop 11/28/16 at 06:44 Vancomycin HCl 1000 mg/Sodium Chloride 250 ml @ 250 mls/hr ROOF TRUSS MACHINE TENDER IV Last administered on 11/25/16 06:42; Start 11/25/16 at 06:45; Stop 11/28/16 at 06:44 Tranexamic Acid 1135 mg/Sodium Chloride 111.35 ml @ 200 mls/ hr ONCE IV Last administered on 11/25/16 09:03; Start 11/25/16 at 08:00; Stop 11/25/16 at 14:00 ; Status DC Tranexamic Acid 1135 mg/Sodium Chloride 111.35 ml @ 200 mls/ hr ONCE IV Last administered on 11/25/16 11:24; Start 11/25/16 at 11:00; Stop 11/25/16 at 12:00 ; Status DC Bupivacaine Liposome 20 ml/ Bupivacaine HCl 20 ml/Sodium Chloride 140 ml @ 200 mls/hr ONCE P-ARTICULR Last administered on 11/25/16 09:02; Start 11/25/16 at 08:00; Stop 11/25/16 at 14:00; Status DC Sodium Chloride (NS 250 ml Inj) 250 ml @ As Directed STK-MED ONCE .ROUTE ; Start 11/25/16 at 06:35; Stop 11/25/16 at 06:36; Status DC Vancomycin HCl (Vancomycin Inj) 1,000 mg STK-MED ONCE .ROUTE ; Start 11/25/16 at 06:35; Stop 11/25/16 at 06:36; Status DC Cefazolin Sodium (Ancef Inj) 2,000 mg STK-MED ONCE .ROUTE Last administered on 11/25/16 07:59; Start 11/25/16 at 07:04; Stop 11/25/16 at 07:05; Status DC Midazolam HCl (Versed Inj) 5 mg STK-MED ONCE .ROUTE Last administered on 07:16; Start 11/25/16 at 07:14; Stop 11/25/16 at 07:15; Status DC Famotidine (Pepcid Inj) 20 mg STK-MED ONCE .ROUTE Last administered on 07:19; Start 11/25/16 at 07:14; Stop 11/25/16 at 07:15; Status DC Dexamethasone Sodium Phosphate (Decadron Inj) 4 mg STK-MED ONCE .ROUTE Last administered on 11/25/16 07:18; Start 11/25/16 at 07:14; Stop 11/25/16 at 07:15 ; Status DC Amlodipine Besylate (Norvasc) 10 mg DAILY PO Last administered on 11/27/16 08: 32; Start 11/25/16 at 09:00 Docusate Sodium (Colace) 100 mg BID PO Last administered on 11/26/16 19:30; Start 11/25/16 at 09:00 Hydrochlorothiazide (Hydrodiuril) 25 mg DAILY PRN PO BLOATING Last administered on 11/27/16 08:39; Start 11/25/16 at 08:30 Lisinopril (Prinivil) 10 mg DAILY PO Last administered on 11/27/16 08:31; Start 11/26/16 at 09:00 Metoprolol Succinate (Toprol Xl) 18.75 mg DAILY PO ; Start 11/26/16 at 09:00; Stop 11/26/16 at 09:56; Status DC Potassium Chloride (KCl) 10 meq TID PO Last administered on 11/27/16 12:24; Start 11/25/16 at 09:00 Atorvastatin Calcium 20 mg 20 mg HS PO Last administered on 11/26/16 19:30; Start 11/25/16 at 21:00 Lactated Ringer's (Lr 1000 ml Inj) 1,000 ml @ 30 mls/hr Q24H IV Last administered on 11/25/16 11:23; Start 11/25/16 at 08:27; Stop 11/27/16 at 11:46 ; Status DC IV Flush (NS Flush) 2 ml UNSCH PRN IVF FLUSH AFTER USING IV ACCESS; Start 11/25 at 08:30 IV Flush 2 ml 2 ml BID IVF Last administered on 11/27/16 08:32; Start at 09:00 Cefazolin Sodium/ Sodium Chloride (Ancef Inj/NS Inj) 100 ml @ 200 mls/hr Q6H IV Last administered on 11/26/16 01:55; Start 11/25/16 at 14:00; Stop at 02:29; Status DC Miscellaneous Information (Post-op Orders (for Pharmacy)) STAT ONCE XX ; Start 11/25/16 at 08:30; Stop 11/25/16 at 11:43; Status DC Enoxaparin Sodium (Lovenox Inj) 30 mg Q12H SQ Last administered on 11/27/16 08 :30; Start 11/26/16 at 10:00 Acetaminophen/ Hydrocodone Bitart (Crescent 7.5-325 Mg) 1 tab Q4H PRN PO PAIN LESS THAN 5 ON SCALE Last administered on 11/27/16 08:34; Start 11/25/16 at 08: 30 Acetaminophen/ Hydrocodone Bitart (Crescent 7.5-325 Mg) 2 tab Q4H PRN PO PAIN SCALE 5 TO 10; Start 11/25/16 at 08:30 Acetaminophen 650 mg 650 mg Q6H PRN PO pain and temp over 101; Start 11/25/16 at 08:30 Tranexamic Acid/ Sodium Chloride (Cyklokapron Inj/ NS Inj) 100 ml @ 200 mls/hr UNSCH IV ; Start 11/25/16 at 08:30; Stop 11/25/16 at 10:33; Status DC Multivitamins/ Minerals Therapeutic (Theragran M Tab) 1 tab BID PO Last administered on 11/27/16 08:31; Start 11/26/16 at 21:00; Stop 01/25/17 at 20:59 Ondansetron HCl (Zofran Inj) 4 mg Q6H PRN IVP NAUSEA OR VOMITING Last administered on 11/26/16 23:10; Start 11/25/16 at 08:30 Docusate Sodium (Colace) 100 mg BID PO ; Start 11/26/16 at 21:00; Stop 11/26/16 at 21:00; Status DC Temazepam (Restoril) 15 mg HS PRN PO SLEEP; Start 11/25/16 at 08:30 Bacitracin (Bacitracin Oint Packet) 0.9 gm UNSCH X1 PRN TOP WOUND CARE; Start 11/27/16 at 10:15; Stop 11/29/16 at 10:14 Naloxone HCl (Narcan Inj) 0.4 mg UNSCH PRN IV RESPIRATORY RATE LESS THAN 10; Start 11/25/16 at 08:30; Stop 11/26/16 at 13:00; Status DC Diphenhydramine HCl (Benadryl Inj) 25 mg Q6H PRN IV ITCHING; Start 11/25/16 at 08:30; Stop 11/26/16 at 13:00; Status DC Morphine Sulfate (Morphine 1 Mg/ ml SIGN LANGUAGE TEACHER) 30 mg UNSCH IV Last administered on 11:25; Start 11/25/16 at 08:30; Stop 11/26/16 at 13:00; Status DC SIGN LANGUAGE TEACHER Dosage Infused (Pha) 1 Q8HR .XX Last administered on 11/26/16 05:52; Start 11/25/16 at 14:00; Stop 11/26/16 at 13:00; Status DC Fentanyl Citrate (fentaNYL INJ) 250 mcg STK-MED ONCE .ROUTE ; Start 11/25/16 at 11:08; Stop 11/25/16 at 11:09; Status DC Morphine Sulfate (*morphine INJ PERIprocedure ONLY) 8 mg STK-MED ONCE .ROUTE Last administered on 11/25/16 11:15; Start 11/25/16 at 11:15; Stop 11/25/16 at 11:16; Status DC Hydrochlorothiazide (Hydrodiuril) 25 mg ONCE ONCE PO Last administered on 11/26 01:55; Start 11/26/16 at 00:45; Stop 11/26/16 at 00:48; Status DC Metoprolol Succinate (Toprol Xl) 12.5 mg DAILY PO Last administered on 08:33; Start 11/26/16 at 10:00 Bupivacaine HCl (Marcaine Pf 0.5% Inj) 20 ml STK-MED ONCE NB ; Start 11/25/16 at 12:25; Stop 11/26/16 at 12:25; Status DC Propofol (Diprivan 200 Mg/20 ml Inj) 200 mg STK-MED ONCE IV ; Start 11/25/16 at 14:30; Stop 11/26/16 at 14:31; Status DC Ephedrine Sulfate (ePHEDrine/NS 25 MG/5 ML SYR) 25 mg STK-MED ONCE IV ; Start at 14:30; Stop 11/26/16 at 14:31; Status DC Neostigmine Methylsulfate (Prostigmin Inj) 3 mg STK-MED ONCE IV ; Start at 14:30; Stop 11/26/16 at 14:31; Status DC Phenylephrine HCl (Neosynephrine/ NS 1000 Mcg/10ml Syr) 1,000 mcg STK-MED ONCE IV ; Start 11/25/16 at 14:30; Stop 11/26/16 at 14:31; Status DC Ondansetron HCl 4 mg 4 mg STK-MED ONCE IV PUSH ; Start 11/25/16 at 14:30; Stop 11/26/16 at 14:31; Status DC Lactated Ringer's (Lr 1000 ml Inj) 1,000 ml @ As Directed STK-MED ONCE IV ; Start 11/25/16 at 14:30; Stop 11/26/16 at 14:32; Status DC Pantoprazole Sodium 40 mg 40 mg DAILY IV PUSH Last administered on 11/27/16 12 :24; Start 11/27/16 at 11:45 Sodium Chloride (NS 1000 ml Inj) 1,000 ml @ 60 mls/hr [id number] IV Last administered on 11/27/16t 12:24; Start 11/27/16 at 11:45 A/P Assessment and Plan Abdominal pain with nausea -XRAY showed ileus vs beginning of SBO. -patient is producing some flatus. -will allow bowels to rest and put NPO and increase fluids. -continue support care with antiemetics. recommend to try to decrease narcotic intake because that can worsen ileus. -pain in epigastric area so will cover for gastritis with protonix. -continue to monitor with serial exam and clinical. if symptoms worsens will need NGT which was discussed with patient. Severe OA of Left Knee -status post Left Total Knee Arthroplasty, by Doctor Xavier Bucio 11/25/16 -management per Ortho. -PT ff. Dacosta's Palsy by history/Atrial Fibrillation/Hypertension/Obstructive Sleep Apnea not using CPAP/ CAD status post CABG x 4 /CHF Mild reduction of Left Ventricular function EF 50%/CKD stage 3 -continue with home medication. Morbid Obesity BMI 40.4 -education given. -f/u as outpatient. DVT prophylaxis - Lovenox. Discharge Planning if abdominal pain and nausea improves can try to clear liquid diet and advance as tolerated. Once able to tolerate PO intake and has BM cleared for discharge to SNF. Donna Robert MD Nov 27, 2016 16:09
[2016-11-27] MEDS: ATORVASTATIN 20 MG TAB PO SCH (20:15)
[2016-11-28] VITALS (11 sets, daily range): BP systolic 98–138; BP diastolic 52–69; PULSE 80–90; RESP 16–17; TEMP 97.2–98.5; O2SAT 93–94
[2016-11-28] MEDS: SODIUM CHLOR 0.9% 1000 ML INJ 1,000 ML IV SCH ×2 (04:25→22:17)
[2016-11-28] MEDS: DOCUSATE SODIUM 100 MG CAP PO SCH ×2 (09:00→20:18)
[2016-11-28] MEDS: METOPROLOL SUCCINATE 25 MG EXTENDED RELEASE TAB PO SCH (09:15)
[2016-11-28] MEDS: ACETAMINOPHEN/HYDROcodone 325 MG/7.5 MG TAB PO PRN ×2 (09:15→12:40)
[2016-11-28] MEDS: LISINOPRIL 10 MG TAB PO SCH (09:15)
[2016-11-28] MEDS: POTASSIUM CHLORIDE 10 MEQ CAP PO SCH ×3 (09:15→16:25)
[2016-11-28] MEDS: MULTIVITAMINS/MINERALS THERAPEUTIC TAB PO SCH ×2 (09:15→20:18)
[2016-11-28] MEDS: ENOXAPARIN SODIUM 30 MG/0.3 ML SYRINGE SQ SCH ×2 (09:15→22:17)
[2016-11-28] MEDS: SODIUM CHLORIDE 0.9% FLUSH 5 ML FLUSH IVF SCH ×2 (09:16→20:18)
[2016-11-28] MEDS: PANTOPRAZOLE SODIUM 40 MG VIAL IV PUSH SCH (09:16)
[2016-11-28] MEDS: HYDROCHLOROTHIAZIDE 25 MG TAB PO PRN (09:18)
--- NOTE | 2016-11-28 09:40 | MP ---
cc: Kathy BUCIO M.D. DATE OF SURGERY: 11/25/2016 PREOPERATIVE DIAGNOSIS Osteoarthritic degeneration, left knee. POSTOPERATIVE DIAGNOSIS Osteoarthritic degeneration, left knee. SURGERY PERFORMED Left total knee arthroplasty using consensus knee system, size 5 femur, 4 tibia, 16 insert and size 2, 7.5 mm three peg patella using two batches of cobalt blue cement. SURGEON Dr. Bucio. HEAD SOFT SUGAR OPERATOR THERESA Comer ANESTHESIA General intubation and block. PROCEDURE After successful induction of anesthesia, the patient is placed on the operating room table in the supine position. The knee is prepped and draped in the usual manner. A tourniquet is inflated at the upper thigh and set to 300 mmHg pressure after exsanguination of the lower extremity. A longitudinal incision is made extending from 3 inches proximal to the superior pole of the patella, across the patella in longitudinal fashion, and down past the insertion of the tibial tubercle into the proximal tibia. The incision is carried down through subcutaneous tissue along the medial aspect of the patella and retinaculum, down through the capsule to expose the knee joint. The patella and patellar tendon are freed up enough to allow the patella to be inverted and retracted off the lateral side of the knee joint. The knee joint is left exposed. Small osteophytes are removed. All soft tissue is removed to allow proper position of the femoral and tibial cutting jig guide. The first femoral jig is then inserted along the distal end of the femur after first measuring to decide whether this is a small, medium, or large component. The notch is then drilled and the tibial cutting guide inserted into the femoral cutting guide, along with the ankle brace to allow for proper measurement of the tibial cutting surface that needed to be resected. Pins are inserted into the tibial cutting jig and femoral cutting jig to hold them in place. An oscillating saw is then used to resect the surface of the tibia. The surface of the tibia is then completely removed using sharp and blunt dissection. The anterior and posterior cuts of the femur are then made as well using an oscillating saw through the cutting guide. All guides are then removed and the varus/valgus angulation cutting guide applied to the femur for proper measurement of the proper amount of valgus. The anterior cutting guide for the femur is then inserted at the anterior femoral cuts made. Next, the first block trial is inserted into the femur to allow for proper condyle drill holes to be made which are then made followed by removal of the bone between the condyles using an oscillating saw as well as the bone removed at the most posterior surface of the condyle. After this, this guide is removed and the chamfer cuts made using the chamfer cutting guide from both anterior and posterior. Next, the femoral trial is then inserted, the tibial surface reflected anterior to expose the tibial surface and a tibial stem guide is inserted after first measuring for a standard, standard plus, large, or large plus surface to be used. After the stem is impacted the trial tibial surface is applied followed by the trial meniscal components. After full range of motion is found with the appropriate length meniscal components varying the patella is prepared by resecting the posterior aspect of the patella using an oscillating saw, inserting a trial. The trial is then removed and the cruciate cutting guide applied using the bur to cut the cruciate cuts. After cruciate cuts are made all trials are removed. The wound is irrigated copiously with antibiotic solution and Water Pik and the actual components inserted into place using the aforementioned components. After the cement had hardened the components are found to have full range of motion with no instability. No tourniquet was utilized. 60 ccs of Exparel was used around the knee joint for extra pain control. Meticulous hemostasis was achieved. No drain was utilized. Deep fascia was approximated with running #2 quill, subcutaneous tissue was approximated using interrupted running 3-0 and 4-0 Monocryl suture, Steri-Strips, sterile dressing and knee immobilizer. Estimated blood loss was 200 ccs. Sponge and suture count were correct. The patient tolerated the procedure well and left the operating room in satisfactory condition. JMD VIKKI Jerry/TLL /10:42 AM /9:39 AM
--- NOTE | 2016-11-28 11:29 | PD.ORT.PN ---
Subjective Subjective Remarks pt complaining of nausea today. Left knee is doing well. Objective Vitals Vital Signs Date Time Temp Pulse Resp B/P Pulse Ox O2 Delivery O2 Flow Rate FiO2 11/28/16 11:01 94 21 11/28/16 07:53 97.4 86 16 138/67 94 11/28/16 07:30 Nasal Cannula 2.00 11/28/16 06:42 82 11/28/16 04:50 97.9 82 17 108/58 93 11/28/16 00:55 97.8 82 17 98/60 94 11/27/16 20:50 98.6 93 18 133/63 94 11/27/16 20:00 83 11/27/16 16:00 98.3 87 18 143/63 93 11/27/16 12:00 96.6 92 18 149/68 95 I/O 11/27/16 11/27/16 11/27/16 11/28/16 11/28/16 11/28/16 07:00 15:00 23:00 07:00 15:00 23:00 Intake Total 530 ml 691 ml 509 ml 730 ml Output Total 525 ml 300 ml 400 ml Balance 5 ml 691 ml 209 ml 330 ml Intake Oral 240 ml 480 ml 120 ml IV Total 290 ml 211 ml 509 ml 610 ml Output Urine Total 525 ml 300 ml 400 ml Bladder Scan Volume Amount 144 ml # Voids 3 1 # Bowel Movements 0 0 0 0 Result Diagram: 11/27/16 0530 11/27/16 0530 Imaging Last 24 hours Impressions Chest X-Ray 11/27/16 0000 Signed Impressions: Service Date/Time: November 00:50 - CONCLUSION: Mild basilar atelectasis. Alonso Reyes MD Abdomen X-Ray 11/27/16 0000 Signed Impressions: Service Date/Time: November 00:53 - CONCLUSION: Dilated small bowel loops with colonic gas seen. Ileus versus developing small bowel obstruction. Alonso Reyes MD Objective Remarks Dressing dry and intact. Sitting up in chair today. No calf tenderness. Medical checking for ileus. Assessment & Plan Ortho Post Op Day #: 3 Problem List: Assessment and Plan OOB,PT, CPM, daily wound care. Medical management for possible ileus. Kathy Bucio MD Nov 28, 2016 11:29
--- NOTE | 2016-11-28 15:27 | HHI.PR ---
Subjective Remarks Late entry. Patient seen at 2 PM. He denies abdominal pain. Denies nausea or vomiting. Does complain of some heartburn. States he is passing gas. Objective Vitals Vital Signs Date Time Temp Pulse Resp B/P Pulse Ox O2 Delivery O2 Flow Rate FiO2 11/28/16 11:23 97.2 88 16 105/52 94 11/28/16 11:01 94 21 11/28/16 07:53 97.4 86 16 138/67 94 11/28/16 07:30 Nasal Cannula 2.00 11/28/16 06:42 82 11/28/16 04:50 97.9 82 17 108/58 93 11/28/16 00:55 97.8 82 17 98/60 94 11/27/16 20:50 98.6 93 18 133/63 94 11/27/16 20:00 83 11/27/16 16:00 98.3 87 18 143/63 93 I/O 11/27/16 11/27/16 11/27/16 11/28/16 11/28/16 11/28/16 07:00 15:00 23:00 07:00 15:00 23:00 Intake Total 530 ml 691 ml 509 ml 730 ml 839 ml Output Total 525 ml 300 ml 400 ml Balance 5 ml 691 ml 209 ml 330 ml 839 ml Intake Oral 240 ml 480 ml 120 ml IV Total 290 ml 211 ml 509 ml 610 ml 839 ml Output Urine Total 525 ml 300 ml 400 ml Bladder Scan Volume Amount 144 ml # Voids 3 1 # Bowel Movements 0 0 0 0 Result Diagram: 11/27/1652911/27/1630 Objective Remarks GENERAL: Well-nourished, well-developed patient. SKIN: Warm and dry. HEAD: Normocephalic. EYES: No scleral icterus. No injection or drainage. NECK: Supple, trachea midline. No JVD or lymphadenopathy. CARDIOVASCULAR: Regular rate and rhythm without murmurs, gallops, or rubs. RESPIRATORY: Breath sounds equal bilaterally. No accessory muscle use. GASTROINTESTINAL: Bowel sounds are present in all 4 quadrants. Abdomen soft, but obese, non-tender, nondistended. EXTREMITIES: No cyanosis, or edema. NEUROLOGICAL: Awake, alert, and oriented x 3. Non-focal. A/P Assessment and Plan -XRAY showed ileus vs beginning of SBO. Patient asymptomatic with good bowel sounds. Will repeat KUB. Trial of clears. If vomits will get abdominal CT scan. Severe OA of Left Knee -status post Left Total Knee Arthroplasty, by Doctor Xavier Bucio 11/25/16 -management per Ortho. -PT ff. Dacosta's Palsy by history/Atrial Fibrillation/Hypertension/Obstructive Sleep Apnea not using CPAP/ CAD status post CABG x 4 /CHF Mild reduction of Left Ventricular function EF 50%/CKD stage 3 -continue with home medication. Morbid Obesity BMI 40.4 -education given. -f/u as outpatient. DVT prophylaxis - Lovenox. Emilia Garcia MD Nov 28, 2016 15:27
--- NOTE | 2016-11-28 16:12 | RADRPT ---
EXAM DATE/TIME: 11/28/2016 15:32 [facility] COMPARISON: CT ABDOMEN & PELVIS W CONTRAST, December 26, 2014, 0:28. ABDOMEN KUB ONLY, November 27, 2016, 0:53. INDICATIONS : Abdominal distension MEDICAL HISTORY : Gallstones. Renal disease. Bladder stones SURGICAL HISTORY : Urinary bladder stone removal. Lithotripsy. ENCOUNTER: Subsequent ACUITY: 2 days PAIN SCORE: 0/10 LOCATION: All quadrants FINDINGS: The examination demonstrates several loops of air-filled and moderately dilated loops of small bowel in the left upper quadrant. No air-fluid levels are seen. Exam would suggest adynamic ileus. The visualized bony structures demonstrate degenerative changes throughout the lumbar spine but are o therwise intact. CONCLUSION: 1. Multiple dilated loops of air-filled small bowel in the left upper abdomen suggesting ileus. There is gas and stool throughout the colon. Guille Snyder MD on November 28, 2016 at 16:09 Board Certified Radiologist. This report was verified electronically.
[2016-11-28] MEDS: ATORVASTATIN 20 MG TAB PO SCH (20:18)
[2016-11-29 04:40] VITALS: BP 116/50; PULSE 86; RESP 17; TEMP 97.4; O2SAT 95
[2016-11-29 08:00] VITALS: BP 156/73; PULSE 90; RESP 18; TEMP 97.6; O2SAT 94
[2016-11-29] MEDS: METOPROLOL SUCCINATE 25 MG EXTENDED RELEASE TAB PO SCH (09:00)
[2016-11-29] MEDS: DOCUSATE SODIUM 100 MG CAP PO SCH ×2 (09:00→21:00)
[2016-11-29] MEDS: POTASSIUM CHLORIDE 10 MEQ CAP PO SCH ×3 (09:54→16:50)
[2016-11-29] MEDS: LISINOPRIL 10 MG TAB PO SCH (09:54)
[2016-11-29] MEDS: MULTIVITAMINS/MINERALS THERAPEUTIC TAB PO SCH ×2 (09:54→22:26)
[2016-11-29] MEDS: SODIUM CHLORIDE 0.9% FLUSH 5 ML FLUSH IVF SCH ×2 (09:55→22:25)
[2016-11-29] MEDS: PANTOPRAZOLE SODIUM 40 MG VIAL IV PUSH SCH (09:55)
[2016-11-29] MEDS: ENOXAPARIN SODIUM 30 MG/0.3 ML SYRINGE SQ SCH ×2 (09:59→22:26)
[2016-11-29 12:00] VITALS: BP 113/63; PULSE 92; RESP 18; TEMP 96.2; O2SAT 95
--- NOTE | 2016-11-29 12:40 | PD.ORT.PN ---
Subjective Post Op Day #: 4 Pain Scale: 2 Subjective Remarks Resting in bed; at bedside No vomiting, slight nausea; some belching pain controlled Full liquid started at lunch today Distance Walked pt states he walked 8 feet Objective Vitals Vital Signs Date Time Temp Pulse Resp B/P Pulse Ox O2 Delivery O2 Flow Rate FiO2 11/29/16 08:00 97.6 90 18 156/73 94 11/29/16 04:40 97.4 86 17 116/50 95 11/28/16 23:40 98.3 83 17 105/59 94 11/28/16 20:45 98.1 80 17 111/61 93 11/28/16 20:00 93 Room Air 11/28/16 20:00 80 11/28/16 17:02 90 11/28/16 16:00 98.5 83 17 123/69 94 I/O 11/28/16 11/28/16 11/28/16 11/29/16 11/29/16 11/29/16 07:00 15:00 23:00 07:00 15:00 23:00 Intake Total 730 ml 1569 ml 786 ml 524 ml Output Total 400 ml 800 ml 925 ml 650 ml Balance 330 ml 769 ml -139 ml -126 ml Intake Oral 120 ml 730 ml 240 ml 60 ml IV Total 610 ml 839 ml 546 ml 464 ml Output Urine Total 400 ml 800 ml 925 ml 650 ml # Bowel Movements 0 0 0 Result Diagram: 11/27/16 0530 11/27/16 0530 Imaging Last 24 hours Impressions Chest X-Ray 11/27/16 0000 Signed Impressions: Service Date/Time: November 00:50 - CONCLUSION: Mild basilar atelectasis. Alonso Reyes MD Abdomen X-Ray 11/27/16 0000 Signed Impressions: Service Date/Time: November 00:53 - CONCLUSION: Dilated small bowel loops with colonic gas seen. Ileus versus developing small bowel obstruction. Alonso Reyes MD Objective Remarks Respiratory: normal effect Dressing dry and intact. CPM machine in progress No calf tenderness. Medical following for ileus. Assessment & Plan Assessment and Plan OOB,PT, CPM, daily wound care. Medical management for ileus. CMP with albumin ordered; last albumin 11/27 2.9 DVT prophylaxis: Lovenox Waiting for Rehab placement: case management planning for Thursday Janeth Grant Nov 29, 2016 12:39
[2016-11-29] MEDS: SODIUM CHLOR 0.9% 1000 ML INJ 1,000 ML IV SCH (13:45)
[2016-11-29 16:00] VITALS: BP 140/63; PULSE 86; RESP 18; TEMP 98.5; O2SAT 98
[2016-11-29 16:17] LABS: ALT (GPT) 15 U/L (12-78); ANION GAP 8 MEQ/L (5-15); AST (GOT) 17 U/L (15-37); BLOOD UREA NITROGEN 21 MG/DL (7-18); CHLORIDE 101 MEQ/L (98-107); GLOMERULAR FILTRATION RATE 82 ML/MIN (>89); SODIUM (NA) 137 MEQ/L (136-145)
[2016-11-29 16:20] LABS: ALKALINE PHOSPHATASE 62 U/L (45-117); TOTAL BILIRUBIN ADULT 0.8 MG/DL (0.2-1.0)
[2016-11-29 17:31] VITALS: PULSE 89
[2016-11-29] MEDS ORDERED: DIATRIZOATE MEGLUM/DIATRIZOATE SOD 9 ML CUP PO ONE (18:15)
--- NOTE | 2016-11-29 20:29 | HHI.PR ---
Subjective Remarks Late entry. Nausea and epigastric burning, but no vomiting, tolerating full liquid. KUB showed ileus. Patient hoping to go [place]. Objective Vitals Vital Signs Date Time Temp Pulse Resp B/P Pulse Ox O2 Delivery O2 Flow Rate FiO2 11/29/16 17:31 89 11/29/16 16:00 98.5 86 18 140/63 98 11/29/16 12:00 96.2 92 18 113/63 95 11/29/16 08:00 97.6 90 18 156/73 94 11/29/16 04:40 97.4 86 17 116/50 95 11/28/16 23:40 98.3 83 17 105/59 94 11/28/16 20:45 98.1 80 17 111/61 93 I/O 11/28/16 11/28/16 11/28/16 11/29/16 11/29/16 11/29/16 07:00 15:00 23:00 07:00 15:00 23:00 Intake Total 730 ml 1569 ml 786 ml 524 ml 600 ml Output Total 400 ml 800 ml 925 ml 650 ml 1700 ml Balance 330 ml 769 ml -139 ml -126 ml -1100 ml Intake Oral 120 ml 730 ml 240 ml 60 ml 600 ml IV Total 610 ml 839 ml 546 ml 464 ml Output Urine Total 400 ml 800 ml 925 ml 650 ml 1700 ml # Bowel Movements 0 0 0 0 Result Diagram: 11/27/16 0530 11/29/16 1528 Objective Remarks GENERAL: Well-nourished, well-developed patient. SKIN: Warm and dry. HEAD: Normocephalic. EYES: No scleral icterus. No injection or drainage. NECK: Supple, trachea midline. No JVD or lymphadenopathy. CARDIOVASCULAR: Regular rate and rhythm without murmurs, gallops, or rubs. RESPIRATORY: Breath sounds equal bilaterally. No accessory muscle use. GASTROINTESTINAL: Bowel sounds are present in all 4 quadrants. Abdomen soft, but obese, non-tender, nondistended. EXTREMITIES: No cyanosis, or edema. NEUROLOGICAL: Awake, alert, and oriented x 3. Non-focal. A/P Assessment and Plan -XRAY showed ileus vs beginning of SBO. Tolerating full liquid diet, check abdominal CT scan, if negative for osbtruction, advance diet to heart healthy. Severe OA of Left Knee -status post Left Total Knee Arthroplasty, by Doctor Xavier Bucio 11/25/16 -management per Ortho. -PT ff. Dacosta's Palsy by history/Atrial Fibrillation/Hypertension/Obstructive Sleep Apnea not using CPAP/ CAD status post CABG x 4 /CHF Mild reduction of Left Ventricular function EF 50%/CKD stage 3 -continue with home medication. Morbid Obesity BMI 40.4 -education given. -f/u as outpatient. DVT prophylaxis - Lovenox. Emilia Garcia MD Nov 29, 2016 20:29
[2016-11-29 20:30] VITALS: BP 139/76; PULSE 89; RESP 18; TEMP 99.7; O2SAT 94
[2016-11-29] MEDS ORDERED: IOHEXOL 350 MG/ML 10 ML VIAL (for RAD DIAG) IV ONE (21:35)
[2016-11-29] MEDS: ATORVASTATIN 20 MG TAB PO SCH (22:26)
--- NOTE | 2016-11-29 22:34 | RADRPT ---
EXAM DATE/TIME: 11/29/2016 18:43 [place] COMPARISON: CT ABDOMEN & PELVIS W CONTRAST, December 26, 2014, 0:28. INDICATIONS : Diffuse abdominal pain. IV CONTRAST: 95 cc Omnipaque 350 (iohexol) IV ORAL CONTRAST: Prescribed oral contrast ingested. RADIATION DOSE: 21.99 CTDIvol (mGy) MEDICAL HISTORY : Hypertension. SURGICAL HISTORY : Cholecystectomy. Pacemaker. ENCOUNTER: Initial ACUITY: 1 day PAIN SCALE: 6/10 LOCATION: Bilateral abdomen TECHNIQUE: Volumetric scanning of the abdomen and pelvis was performed. Using automated exposure control and ad justment of the mA and/or kV according to patient size, radiation dose was kept as low as reasonably achievable to obtain optimal diagnostic quality images. FINDINGS: There is dilatation of small bowel proximally up to 3.6 cm with numerous air-fluid levels. Distal sma ll bowel is decompressed. Findings are characteristic of an early or partial small bowel obstruction. Stomach is mildly distended. There is a nonobstructing 7 mm calculus lower pole left kidney. There is an approximately 4 mm calcul us at the right UVJ or just within the bladder and an additional 3 mm calculus within the bladder. No evidence for hydronephrosis or obstructive uropathy on the right. Is no free air or free fluid. Basilar lung scarring stable since prior exam. Pacer leads present righ t atrium and right ventricle. Previous median sternotomy. Calcified gallstone present. Mild fatty liver. Spleen, adrenals and pancreas unremarkable. CONCLUSION: 1. Dilatation of small bowel to 3.6 cm and air-fluid levels and distal decompression characteristic o f an early or partial small bowel obstruction. 2. A 4 mm calculus is present near right UVJ without evidence for right-sided obstructive uropathy. T iny 2-3 mm calculus also within the bladder and 7 mm nonobstructing calculus lower pole left kidney. Russell Corona MD on November 29, 2016 at 22:27 Board Certified Radiologist. This report was verified electronically.
[2016-11-30] VITALS (7 sets, daily range): BP systolic 102–159; BP diastolic 64–74; PULSE 87–99; RESP 18–22; TEMP 97.2–98.4; O2SAT 93–96
[2016-11-30] MEDS: SODIUM CHLOR 0.9% 1000 ML INJ 1,000 ML IV SCH ×2 (06:25→23:05)
[2016-11-30] MEDS: DOCUSATE SODIUM 100 MG CAP PO SCH ×2 (09:00→19:38)
[2016-11-30] MEDS: LISINOPRIL 10 MG TAB PO SCH (09:00)
[2016-11-30] MEDS: MULTIVITAMINS/MINERALS THERAPEUTIC TAB PO SCH ×2 (09:00→19:38)
[2016-11-30] MEDS: POTASSIUM CHLORIDE 10 MEQ CAP PO SCH ×3 (09:00→18:00)
[2016-11-30] MEDS: METOPROLOL SUCCINATE 25 MG EXTENDED RELEASE TAB PO SCH (09:00)
[2016-11-30] MEDS: PANTOPRAZOLE SODIUM 40 MG VIAL IV PUSH SCH (09:33)
[2016-11-30] MEDS: SODIUM CHLORIDE 0.9% FLUSH 5 ML FLUSH IVF SCH ×2 (09:33→19:38)
[2016-11-30] MEDS: ENOXAPARIN SODIUM 30 MG/0.3 ML SYRINGE SQ SCH ×2 (09:33→22:33)
--- NOTE | 2016-11-30 13:42 | PD.ORT.PN ---
Subjective Subjective Remarks pt complaining of nausea today. Left knee is doing well. Objective Vitals Vital Signs Date Time Temp Pulse Resp B/P Pulse Ox O2 Delivery O2 Flow Rate FiO2 11/30/16 12:00 98.3 98 18 108/67 96 11/30/16 08:00 97.3 87 18 159/74 95 11/30/16 05:24 97.6 91 18 117/72 96 11/30/16 00:50 97.2 90 22 122/69 93 11/30/16 00:05 98.4 99 18 147/64 94 11/29/16 20:30 99.7 89 18 139/76 94 11/29/16 17:31 89 11/29/16 16:00 98.5 86 18 140/63 98 I/O 11/29/16 11/29/16 11/29/16 11/30/16 11/30/16 11/30/16 07:00 15:00 23:00 07:00 15:00 23:00 Intake Total 524 ml 600 ml Output Total 650 ml 1700 ml 800 ml Balance -126 ml -1100 ml -800 ml Intake Oral 60 ml 600 ml IV Total 464 ml Output Urine Total 650 ml 1700 ml 800 ml # Bowel Movements 0 0 0 Result Diagram: 11/27/16 0530 11/29/16 1528 Imaging Last 24 hours Impressions Chest X-Ray 11/27/16 0000 Signed Impressions: Service Date/Time: November 00:50 - CONCLUSION: Mild basilar atelectasis. Alonso Reyes MD Abdomen X-Ray 11/27/16 0000 Signed Impressions: Service Date/Time: November 00:53 - CONCLUSION: Dilated small bowel loops with colonic gas seen. Ileus versus developing small bowel obstruction. Alonso Reyes MD Objective Remarks Respiratory: normal effect Dressing dry and intact. CPM machine in progress No calf tenderness. CT scan shows possible partial intestinal blockage. Medical following for ileus. Assessment & Plan Ortho Post Op Day #: 5 Problem List: Assessment and Plan OOB,PT, CPM, daily wound care. Medical management for ileus. DVT prophylaxis: Lovenox Waiting for Rehab placement: case management planning for Thursday Kathy Bucio MD Nov 30, 2016 13:42
[2016-11-30] MEDS ORDERED: ALPRAZolam 0.25 MG TAB PO PRN (15:00)
--- NOTE | 2016-11-30 15:13 | HHI.PR ---
Subjective Remarks Patient states that he has been feeling quite anxious. The patient states that he has used to being the person and control. He states he did not have anxiety when he had his bypass surgery. This is a new sensation for him. He states he is very happy with the care that has been provided him here. He states last night for a moment when the nurse walked into the door he did not recognize her face and this was concerning to him. He still feels anxious today however it is improved. The patient states he has not noticed any difference in the epigastric pain with the Protonix. It still occurs about 5 minutes after taking his pills and resolves on its own. He gets nauseated as well but this passes. The patient has not had any bowel movement but states he is still passing flatus. Positive nausea as above with taking medications but no vomiting. Objective Vitals Vital Signs Date Time Temp Pulse Resp B/P Pulse Ox O2 Delivery O2 Flow Rate FiO2 11/30/16 12:00 98.3 98 18 108/67 96 11/30/16 08:00 97.3 87 18 159/74 95 11/30/16 05:24 97.6 91 18 117/72 96 11/30/16 00:50 97.2 90 22 122/69 93 11/30/16 00:05 98.4 99 18 147/64 94 11/29/16 20:30 99.7 89 18 139/76 94 11/29/16 17:31 89 11/29/16 16:00 98.5 86 18 140/63 98 I/O 11/29/16 11/29/16 11/29/16 11/30/16 11/30/16 11/30/16 07:00 15:00 23:00 07:00 15:00 23:00 Intake Total 524 ml 600 ml Output Total 650 ml 1700 ml 800 ml Balance -126 ml -1100 ml -800 ml Intake Oral 60 ml 600 ml IV Total 464 ml Output Urine Total 650 ml 1700 ml 800 ml # Bowel Movements 0 0 0 Result Diagram: 11/27/16 0530 11/29/16 1528 Objective Remarks GENERAL: Well-nourished, well-developed patient. SKIN: Warm and dry. HEAD: Normocephalic. EYES: No scleral icterus. No injection or drainage. NECK: Supple, trachea midline. No JVD or lymphadenopathy. CARDIOVASCULAR: Regular rate and rhythm without murmurs, gallops, or rubs. RESPIRATORY: Breath sounds equal bilaterally. No accessory muscle use. GASTROINTESTINAL: Bowel sounds are present in all 4 quadrants. Abdomen soft, but obese, non-tender, nondistended. EXTREMITIES: Left knee with vertical bandage, 1-2+ edema of the leg. Right calf with trace pedal edema. NEUROLOGICAL: Awake, alert, and oriented x 3. Non-focal. A/P Assessment and Plan -Partial small bowel obstruction - day 4, persistent. Interestingly, patient has not had any vomiting or abdominal pain. He states he has not had any prior history of intra-abdominal surgeries. He states he has been consistently passing flatus however no bowel movements. He does complain of burning epigastric pain that begins 5 minutes after taking his pills. Abdominal CT scan yesterday is showing partial small bowel obstruction versus ileus. As this is persistent I will consult gastroenterology and general surgery. Discussed with Dr. Kaye and with Griselda from GI service. Normal saline IV at 60 mL per hour until taking by mouth. Monitor for any fluid overload. -Severe OA of Left Knee - status post Left Total Knee Arthroplasty, by Doctor Xavier Bucio 11/25/16. Management as per orthopedic surgery. -Paroxysmal atrial fibrillation. Has pacemaker. Heart rate is not elevated. Monitor HR q 4 hr. lovenox 30 mg sq BID (on eliquis at home).. resume metoprolol when taking by mouth. -DANA - not using cpap. -Hypertension - vasotec prn blood pressure elevations. -CAD s/p CABG - aspirin not reported on home meds, this will need following up when he is taking PO. -Cardiomyopathy, and chronic systolic CHF Mild reduction of Left Ventricular function EF 50%- currently compensated. monitor for any fluid overload. -Morbid Obesity BMI 40.4 -Anxiety, suspect situational - counseling provided. offered low dose xanax, discussed risks including delirium, patient agreeable to prn. -CKD 2-3- stable. monitor BMP. Add DORA hose. -Pedal edema. Lungs are clear and he is stable on room air. -Nephrolithiasis, asymptomatic. -DVT prophylaxis- Lovenox (resume eliquis when taking PO and cleared by surgery) . D/w patient's at bedside. Discharge Planning This is a highly medically complex patient status post left knee surgery. I strongly recommend that once stable for discharge that he be accepted at an inpatient rehabilitation facility that is attached to a medical facility as he is at high risk for further medical complications that would not be able to be adequately addressed in a senior care facility setting. Emilia Garcia MD Nov 30, 2016 15:13
--- NOTE | 2016-11-30 15:22 | PD.CONS ---
HPI History of Present Illness Mr. Coon is a pleasant 81 y/o WM with HTN, hyperlipidemia,, OA, CAD and DANA who was admitted to [facility] on 11/25/16 for elective left total knee arthroplasty with Dr. Bucio. Post-operatively the pt has done fairly well but began complaining about some nausea and some burning chest discomfort after he takes his pills. KUB on 11/27 noted dilated small bowel loops with colonic gas seen. Repeat KUB on 11/28 with similar findings of multiple dilated loops of air-filled small bowel in the left upper abdomen suggesting ileus. There is gas and stool throughout the colon. Pt was down graded to clear liquid diet. CT Abd/ pelvis (11/29) noted dilatation of small bowel to 3.6 cm and air-fluid levels and distal decompression characteristic of an early or partial small bowel obstruction. Pt denies any abdominal pain. He states that he has been passing gas throughout this admission and this continues today. He does feel like he is bloated and has not had a BM since prior to admission. He has not had any vomiting. The nausea seems to come and go and the upper chest burning only occurs briefly about 5 mins after he takes his pills. Pt was started on Protonix 40mg IV daily since 11/27. Pt has been receiving Colace BID but otherwise no other laxatives. (Bonny Johnson) PFSH Past Medical History CAD HTN Hyperlipidemia Hypothyroidism OA DANA Anxiety/Depression Hx of colon polyps Past Surgical History Colonoscopy 07/02/[address] Cabrales --> pedunculated polyp 5-9mm in the transverse colon, small sessile polyp in the rectum, mild diverticulosis, small internal hemorrhoids CABG x 4 PPM Right knee surgery Cystoscopy Bilateral carpal tunnel release Left thumb surgery Tonsillectomy (Bonny Johnson) Coded Allergies: Lasix (Verified Allergy, Severe, ANAPHYLAXIS, 11/18/16) Seafood (Verified Allergy, Severe, 11/18/16) Voltaren (Verified Allergy, Severe, ANAPHYLAXIS, 11/18/16) MRI PRECAUTION (Verified Adverse Reaction, Severe, 11/18/16) PT HAS PACER Sulfa (Verified Adverse Reaction, Severe, HEAD ACHE, 11/18/16) Medications Amlodipine (Amlodipine Besylate) 10 Mg Tab 10 Mg PO DAILY Potassium Chloride ER (Potassium Chloride) 10 Meq Cap 10 Meq PO TID Crestor (Rosuvastatin Calcium) 10 Mg Tab 10 Mg PO HS Metoprolol Succinate ER 24 HR (Metoprolol Succinate) 25 Mg Tab 18.75 Mg PO DAILY PT STATES HE TAKES 3/4 OF 25MG TAB Lisinopril 10 Mg Tab 10 Mg PO DAILY Hydrochlorothiazide 25 Mg Tab 25 Mg PO DAILY PRN Colace (Docusate Sodium) 100 Mg Cap 100 Mg PO BID Eliquis (Apixaban) 5 Mg Tab 5 Mg PO BID Family History Noncontributory Social History Denies any alcohol, tobacco or illicit drug use Pt lives at home with his (Bonny Johnson) Review of Systems Constitutional: DENIES: Fever, Chills, Change in appetite Respiratory: DENIES: Cough, Shortness of breath Cardiovascular: COMPLAINS OF: Lower Extremity Edema, DENIES: Chest pain, Palpitations Gastrointestinal: COMPLAINS OF: Constipation, Nausea, Heartburn, DENIES: Abdominal pain, Vomiting, Odynophagia Musculoskeletal: COMPLAINS OF: Joint pain, Joint Swelling Psychiatric: COMPLAINS OF: Anxiety (Bonny Johnson) GI Exam Vitals I&O Vital Signs Date Time Temp Pulse Resp B/P Pulse Ox O2 Delivery O2 Flow Rate FiO2 11/30/16 12:00 98.3 98 18 108/67 96 11/30/16 08:00 97.3 87 18 159/74 95 11/30/16 05:24 97.6 91 18 117/72 96 11/30/16 00:50 97.2 90 22 122/69 93 11/30/16 00:05 98.4 99 18 147/64 94 11/29/16 20:30 99.7 89 18 139/76 94 11/29/16 17:31 89 11/29/16 16:00 98.5 86 18 140/63 98 I/O 11/29/16 11/29/16 11/29/16 11/30/16 11/30/16 11/30/16 07:00 15:00 23:00 07:00 15:00 23:00 Intake Total 524 ml 600 ml Output Total 650 ml 1700 ml 800 ml Balance -126 ml -1100 ml -800 ml Intake Oral 60 ml 600 ml IV Total 464 ml Output Urine Total 650 ml 1700 ml 800 ml # Bowel Movements 0 0 0 Imaging Last Impressions Abdomen/Pelvis CT 11/29/16 0000 Signed Impressions: Service Date/Time: Tuesday, November 29, 2016 18:43 - CONCLUSION: 1. Dilatation of small bowel to 3.6 cm and air-fluid levels and distal decompression characteristic of an early or partial small bowel obstruction. 2. A 4 mm calculus is present near right UVJ without evidence for right-sided obstructive uropathy. Tiny 2-3 mm calculus also within the bladder and 7 mm nonobstructing calculus lower pole left kidney. Russell Corona MD Abdomen X-Ray 11/28/16 0000 Signed Impressions: Service Date/Time: Monday, November 28, 2016 15:32 - CONCLUSION: 1. Multiple dilated loops of air-filled small bowel in the left upper abdomen suggesting ileus. There is gas and stool throughout the colon. Guille Snyder MD Chest X-Ray 11/27/16 0000 Signed Impressions: Service Date/Time: November 00:50 - CONCLUSION: Mild basilar atelectasis. Alonso Reyes MD Knee X-Ray 11/25/16 0827 Signed Impressions: Service Date/Time: Friday, November 25, 2016 11:36 - CONCLUSION: 1. Status post left total knee replacement with prosthesis in good position. Elia Santos MD Laboratory Test 11/29/16 15:28 Sodium Level 137 MEQ/L Potassium Level 4.0 MEQ/L Chloride Level 101 MEQ/L Carbon Dioxide Level 28.0 MEQ/L Anion Gap 8 MEQ/L Blood Urea Nitrogen 21 MG/DL Creatinine 0.89 MG/DL Estimat Glomerular Filtration 82 ML/MIN Rate Random Glucose 104 MG/DL Calcium Level 8.9 MG/DL Total Bilirubin 0.8 MG/DL Aspartate Amino Transf 17 U/L (AST/SGOT) Alanine Aminotransferase 15 U/L (ALT/SGPT) Alkaline Phosphatase 62 U/L Total Protein 6.3 GM/DL Albumin 2.7 GM/DL Date/Time Procedure Status Source Growth 11/27/16 02:10 Urine Culture - Final Complete Urine Clean Catch NO GROWTH IN 48 HOURS. Physical Examination HEENT: Pupils round and reactive to light; normocephalic; atraumatic; no jaundice. Throat is clear. NECK: Neck is supple, no JVD, no lymphadenopathy. CHEST: CTA CARDIAC: Regular ABDOMEN: +Bs, mildly distended, nontender. EXTREMITIES: Left knee incision is c/d/i SKIN: Normal; no rash; no jaundice. GETTERING OPERATOR: No focal deficits; alert and oriented times three. (Bonny Johnson) Assessment and Plan Plan ASSESSMENT: - Post-op ileus vs. partial SBO. Pt underwent left knee arthroplasty on 11/25/16 and has not moved his bowels since prior to surgery. He was having some mild nausea and some burning discomfort after taking his pills. KUB (11/27) --> noted dilated small bowel loops with colonic gas seen. Repeat KUB (11/28) --> multiple dilated loops of air-filled small bowel in the left upper abdomen suggesting ileus. There is gas and stool throughout the colon. Pt was down graded to clear liquid diet. CT Abd/pelvis (11/29) noted dilatation of small bowel to 3.6 cm and air-fluid levels and distal decompression characteristic of an early or partial small bowel obstruction. Pt denies any abdominal pain. + Flatus. Nausea but no vomiting. +BS on exam. General surgery is consulted - Osteoarthritis s/p left total knee arthroplasty. Orthopedic surgery managing. - Atrial fibrillation//HTN/Hyperlipidemia/DANA - management per attending. PLAN: - General Surgery to evaluate pt and review CT scan - If it is felt that the pt is not obstructed then may consider adding prokinetics with Reglan and increase bowel regimen with laxatives, ie. Mag Citrate. - Pt is currently NPO - If any vomiting then place NGT to LIWS - Cont. Colace - Cont. PPI - Monitor clinical status - Supportive care - Further recommendations as the case develops - The pt was seen and examined by myself and Dr. Campos, this note was written on her behalf. (Bonny Johnson) Physician Comments seen, examined agree with above passing flatus large amounts, some retrosternal burning (Lashaun Campos MD) Bonny Johnson Nov 30, 2016 15:22 Lashaun Campos MD Nov 30, 2016 15:48
[2016-11-30] MEDS: ATORVASTATIN 20 MG TAB PO SCH (19:38)
[2016-12-01 01:00] VITALS: BP 104/58; PULSE 92; RESP 18; TEMP 96.8; O2SAT 93
[2016-12-01 02:20] VITALS: BP 123/58; PULSE 84; RESP 18; TEMP 96.4; O2SAT 96
[2016-12-01 03:35] VITALS: BP 126/63; PULSE 90; RESP 19; TEMP 97.6; O2SAT 95
--- NOTE | 2016-12-01 06:14 | MB ---
cc: CHARLES HAGEN DATE OF CONSULTATION 11/30/[address] Garcia, hospitalist service. REASON FOR CONSULTATION Postoperative ileus versus small-bowel obstruction. HISTORY OF PRESENT ILLNESS The patient is a 81-year-old male status post orthopedic surgery, an elective left total knee arthroplasty with Dr. Bucio on 11/25/2016. The patient postoperatively was doing well when he developed some nausea without vomiting and some abdominal distension. The patient has continued to pass gas but he has not had any bowel movements. The patient states that his abdominal discomfort is disrupting his rehab and he has required continued admission to [facility] for supportive care. The patient is being followed by hospitalist service and underwent workup including a CT scan of the abdomen and pelvis which showed some dilated loops of small bowel without a transition point which read as a partial small-bowel obstruction due to dilated loops of bowel. REVIEW OF SYSTEMS A 12-point review of systems done by the patient is negative except for the pertinent positives mentioned above in the History of Present Illness. PAST MEDICAL HISTORY 1. Coronary artery disease. 2. Hypertension. 3. Hyperlipidemia. 4. Arthritis. PAST SURGICAL HISTORY 1. CABG. 2. Previous right knee surgery. 3. Recent left knee surgery as above. ALLERGIES LASIX. SEAFOOD. VOLTAREN. SULFA. MEDICATIONS 1. Amlodipine. 2. Potassium. 3. Crestor. 4. Metoprolol. 5. Lisinopril. 6. Hydrochlorothiazide. 7. Colace. 8. Eliquis. SOCIAL HISTORY The patient denies alcohol, tobacco or illicit drug use. PHYSICAL EXAMINATION VITAL SIGNS: Blood temperature 98.3 degrees, heart rate 98, blood pressure 108/67. GENERAL: The patient is an overweight male in no acute distress. He does not appear acutely or chronically ill. HEAD: Normocephalic, atraumatic. EYES: Pupils round, reactive to light and accommodation. Sclerae anicteric. Mucous membranes are moist. NECK: Supple. No JVD. LUNGS: Breath sounds present bilaterally. No abnormal breathing pattern. HEART: Regular rate and rhythm. ABDOMEN: Obese. Nondistended. Tympanitic. Nontender to palpation. No organomegaly. No ascites. No rebound tenderness. No hernia. No surgical scars. EXTREMITIES: Status post the knee. Trace edema. NEUROLOGIC EXAM: Patient with GCS of 15. Awake and alert. Moving all extremities equally bilaterally. Cranial nerves II-XII are grossly intact. LABORATORY VALUES White blood cell count 9.5, hemoglobin 11.7. ASSESSMENT AND PLAN The patient is a 81-year-old male, elderly gentleman status post orthopedic surgery on chronic pain medications postoperatively with some dilated loops of small bowel nonspecifically on CT scan. Clinically, the patient's clinical history is much more consistent with an ileus secondary to narcotic use. The patient has had no previous abdominal surgery, no reason to have scar tissue and has no hernias on exam or on imaging. The patient has decompressed bowel loops proximal to very minimally dilated distal loops, again supporting more of an ileus type picture. My opinion is that the patient has paralytic ileus secondary to narcotic medications and had not a mechanical small bowel obstruction. RECOMMENDATIONS I would recommend only placing an NG tube if the patient has persistent vomiting. Recommend minimizing narcotic medications and agree with some promotility medications as well as repleting appropriate electrolytes. Just recommend continued supportive care and physical therapy as the postoperative ileus should resolve, self-limited. We will follow the patient with you. Thank you very much for this consultation. MD NASIR Clifton/DARRELL /11:56 PM /5:57 AM
[2016-12-01 07:12] LABS: AUTOMATED NEUTROPHIL # 3.6 TH/MM3 (1.8-7.7); BASOPHIL % 0.5 % (0.0-2.0); EOSINOPHIL # 0.1 TH/MM3 (0-0.4); EOSINOPHIL % 2.6 % (0.0-4.0); HEMATOCRIT 34.2 % (39.0-51.0); HEMO FLAGS DIFF FINAL; LYMPH % 17.3 % (9.0-44.0); LYMPHOCYTE # 0.9 TH/MM3 (1.0-4.8); MEAN CORPUSCULAR HGB CONC 33.3 % (32.0-36.0); MONO % 13.8 % (0.0-8.0); NEUT % 65.8 % (16.0-70.0); PLATELET COUNT 220 TH/MM3 (150-450); RED BLOOD COUNT 4.55 MIL/MM3 (4.50-5.90); RED CELL DISTRIBUTION WIDTH 14.8 % (11.6-17.2); WHITE BLOOD COUNT 5.4 TH/MM3 (4.0-11.0)
[2016-12-01 07:46] LABS: BICARBONATE 26.8 MEQ/L (21.0-32.0); POTASSIUM 4.1 MEQ/L (3.5-5.1)
[2016-12-01 07:53] VITALS: BP 133/68; PULSE 95; RESP 18; TEMP 98.2; O2SAT 93
[2016-12-01] MEDS: METOPROLOL SUCCINATE 25 MG EXTENDED RELEASE TAB PO SCH (09:00)
--- NOTE | 2016-12-01 09:00 | HHI.PR ---
Subjective Subjective Notes Resting in bed Feels much less bloated today than over the weekend Does not want NGT Objective Vitals/I&O Vital Signs Date Time Temp Pulse Resp B/P Pulse Ox O2 Delivery O2 Flow Rate FiO2 12/01/16 07:53 98.2 95 18 133/68 93 11/30/16 20:55 Room Air 2.00 21 Labs Laboratory Tests Test 12/01/16 06:15 White Blood Count 5.4 Red Blood Count 4.55 Hemoglobin 11.4 Hematocrit 34.2 Mean Corpuscular Volume 75.0 Mean Corpuscular Hemoglobin 25.0 Mean Corpuscular Hemoglobin 33.3 Concent Red Cell Distribution Width 14.8 Platelet Count 220 Mean Platelet Volume 7.9 Neutrophils (%) (Auto) 65.8 Lymphocytes (%) (Auto) 17.3 Monocytes (%) (Auto) 13.8 Eosinophils (%) (Auto) 2.6 Basophils (%) (Auto) 0.5 Neutrophils # (Auto) 3.6 Lymphocytes # (Auto) 0.9 Monocytes # (Auto) 0.7 Eosinophils # (Auto) 0.1 Basophils # (Auto) 0.0 CBC Comment DIFF FINAL Differential Comment Sodium Level 141 Potassium Level 4.1 Chloride Level 102 Carbon Dioxide Level 26.8 Anion Gap 12 Blood Urea Nitrogen 29 Creatinine 0.96 Estimat Glomerular Filtration 76 Rate Random Glucose 80 Calcium Level 8.6 Date/Time Procedure Status Source Growth 11/27/16 02:10 Urine Culture - Final Complete Urine Clean Catch NO GROWTH IN 48 HOURS. Cardiovascular: Regular Lungs: Clear Abdomen: Non-distended, Non-tender, Other (obese abdomen soft and non tender ) Narrative Exam LEFT knee bandage in place A/P Assessment and Plan 81 year old male s/p total LEFT knee arthroplasty with post-op ileus -Start sips of clears today; advance as tolerated -Minimize narcotic use -OOB and mobilize per weight bearing status by Dr. Bucio -No acute surgical issues at this time Devika Woods Dec 01, 2016 09:00
[2016-12-01] MEDS: ENOXAPARIN SODIUM 30 MG/0.3 ML SYRINGE SQ SCH ×2 (09:19→21:40)
[2016-12-01] MEDS: POTASSIUM CHLORIDE 10 MEQ CAP PO SCH ×3 (09:19→18:45)
[2016-12-01] MEDS: LISINOPRIL 10 MG TAB PO SCH (09:20)
[2016-12-01] MEDS: DOCUSATE SODIUM 100 MG CAP PO SCH ×2 (09:20→21:41)
[2016-12-01] MEDS: MULTIVITAMINS/MINERALS THERAPEUTIC TAB PO SCH ×2 (09:20→21:41)
[2016-12-01] MEDS: PANTOPRAZOLE SODIUM 40 MG VIAL IV PUSH SCH (09:21)
[2016-12-01] MEDS: SODIUM CHLORIDE 0.9% FLUSH 5 ML FLUSH IVF SCH ×2 (09:21→21:42)
--- NOTE | 2016-12-01 09:35 | HHI.GIFU ---
Subjective Remarks Sitting on side of bed, getting ready to walk with PT. No n/v. Feeling better. no abdominal pain. Still no bm. Clear liquids were ordered, but he has not had yet. (Libby Modi) Objective Vitals I&O Vital Signs Date Time Temp Pulse Resp B/P Pulse Ox O2 Delivery O2 Flow Rate FiO2 12/01/16 07:53 98.2 95 18 133/68 93 12/01/16 03:35 97.6 90 19 126/63 95 12/01/16 01:00 96.8 92 18 104/58 93 11/30/16 20:55 Room Air 2.00 21 11/30/16 19:40 98.4 93 18 117/66 96 11/30/16 16:00 98.2 96 18 102/70 94 11/30/16 12:00 98.3 98 18 108/67 96 I/O 11/30/16 11/30/16 11/30/16 12/01/16 12/01/16 12/01/16 07:00 15:00 23:00 07:00 15:00 23:00 Intake Total 0 ml 240 ml Output Total 800 ml 200 ml 250 ml Balance -800 ml -200 ml -10 ml Intake Oral 0 ml 240 ml Output Urine Total 800 ml 200 ml 250 ml # Voids 1 # Bowel Movements 0 0 0 0 Laboratory Laboratory Tests Test 12/01/16 06:15 White Blood Count 5.4 Red Blood Count 4.55 Hemoglobin 11.4 Hematocrit 34.2 Mean Corpuscular Volume 75.0 Mean Corpuscular Hemoglobin 25.0 Mean Corpuscular Hemoglobin 33.3 Concent Red Cell Distribution Width 14.8 Platelet Count 220 Mean Platelet Volume 7.9 Neutrophils (%) (Auto) 65.8 Lymphocytes (%) (Auto) 17.3 Monocytes (%) (Auto) 13.8 Eosinophils (%) (Auto) 2.6 Basophils (%) (Auto) 0.5 Neutrophils # (Auto) 3.6 Lymphocytes # (Auto) 0.9 Monocytes # (Auto) 0.7 Eosinophils # (Auto) 0.1 Basophils # (Auto) 0.0 CBC Comment DIFF FINAL Differential Comment Sodium Level 141 Potassium Level 4.1 Chloride Level 102 Carbon Dioxide Level 26.8 Anion Gap 12 Blood Urea Nitrogen 29 Creatinine 0.96 Estimat Glomerular Filtration 76 Rate Random Glucose 80 Calcium Level 8.6 Date/Time Procedure Status Source Growth 11/27/16 02:10 Urine Culture - Final Complete Urine Clean Catch NO GROWTH IN 48 HOURS. Imaging Last Impressions Abdomen/Pelvis CT 11/29/16 0000 Signed Impressions: Service Date/Time: Tuesday, November 29, 2016 18:43 - CONCLUSION: 1. Dilatation of small bowel to 3.6 cm and air-fluid levels and distal decompression characteristic of an early or partial small bowel obstruction. 2. A 4 mm calculus is present near right UVJ without evidence for right-sided obstructive uropathy. Tiny 2-3 mm calculus also within the bladder and 7 mm nonobstructing calculus lower pole left kidney. Russell Corona MD Abdomen X-Ray 11/28/16 0000 Signed Impressions: Service Date/Time: Monday, November 28, 2016 15:32 - CONCLUSION: 1. Multiple dilated loops of air-filled small bowel in the left upper abdomen suggesting ileus. There is gas and stool throughout the colon. Guille Snyder MD Chest X-Ray 11/27/16 0000 Signed Impressions: Service Date/Time: November 00:50 - CONCLUSION: Mild basilar atelectasis. Alonso Reyes MD Knee X-Ray 11/25/16 0827 Signed Impressions: Service Date/Time: Friday, November 25, 2016 11:36 - CONCLUSION: 1. Status post left total knee replacement with prosthesis in good position. Elia Santos MD Physical Exam HEENT: Normocephalic; atraumatic; no jaundice. CHEST: CTA CARDIAC: RRR ABDOMEN: Soft, distended, nontender; no hepatosplenomegaly; bowel sounds are present in all four quadrants. EXTREMITIES: Decreased ROM LLE SKIN: Normal; no rash; no jaundice. LOAN INTERVIEW[employer]AGE: No focal deficits; alert and oriented times three. (Libby Modi) Assessment and Plan Plan ASSESSMENT: - Post-op ileus vs. partial SBO. Pt underwent left knee arthroplasty on 11/25/16 and has not moved his bowels since prior to surgery. He was having some mild nausea and some burning discomfort after taking his pills. Abdomen/Pelvis CT (11/29/16)---> 1. Dilatation of small bowel to 3.6 cm and air-fluid levels and distal decompression characteristic of an early or partial small bowel obstruction. 2. A 4 mm calculus is present near right UVJ without evidence for right-sided obstructive uropathy. Tiny 2-3 mm calculus also within the bladder and 7 mm nonobstructing calculus lower pole left kidney. S/P GS evaluation, feel this is more a post op ileus secondary to narcotics. No n/v, pain, but no BM yet. Will start Miralax, Reglan, Clear liquids and see how he responds to this. - Osteoarthritis s/p left total knee arthroplasty. Orthopedic surgery managing. - Atrial fibrillation//HTN/Hyperlipidemia/DANA - management per attending. PLAN: - Clear liquids - Add Reglan 10mg IV q8h - Add Miralax 17 gram po daily - KUB in am - Supportive care - Further recommendations as the case develops - The pt was seen and examined by myself and Dr. Rodriguez, this note was written on his behalf. (Libby Modi) Physician Comments Patient seen and examined Agree with above Continue with current supportive care Monitor labs Currently abdomen is soft the patient reports having had bowel movements so it seems that either his ileus or his partial small bowel obstruction has resolved We'll await x-rays of the morning to verify but if all is normal advance diet as tolerated (Hernandez Rodriguze MD) Libby Modi Dec 01, 2016 09:35 Hernandez Rodriguez MD Dec 01, 2016 23:09
[2016-12-01] MEDS: POLYETHYLENE GLYCOL 17 GM PKG PO SCH (10:00)
[2016-12-01] MEDS: METOCLOPRAMIDE HCL 10 MG/2 ML VIAL IV PUSH SCH ×2 (10:00→18:46)
--- NOTE | 2016-12-01 11:37 | PD.ORT.PN ---
Subjective Subjective Remarks Pt not having much pain or difficulty with left leg. No BM in 6 days. Trying to eat clear liquids now. Objective Vitals Vital Signs Date Time Temp Pulse Resp B/P Pulse Ox O2 Delivery O2 Flow Rate FiO2 12/01/16 07:53 98.2 95 18 133/68 93 12/01/16 03:35 97.6 90 19 126/63 95 12/01/16 01:00 96.8 92 18 104/58 93 11/30/16 20:55 Room Air 2.00 21 11/30/16 19:40 98.4 93 18 117/66 96 11/30/16 16:00 98.2 96 18 102/70 94 11/30/16 12:00 98.3 98 18 108/67 96 I/O 11/30/16 11/30/16 11/30/16 12/01/16 12/01/16 12/01/16 07:00 15:00 23:00 07:00 15:00 23:00 Intake Total 0 ml 240 ml Output Total 800 ml 200 ml 250 ml Balance -800 ml -200 ml -10 ml Intake Oral 0 ml 240 ml Output Urine Total 800 ml 200 ml 250 ml # Voids 1 # Bowel Movements 0 0 0 0 Result Diagram: 12/01/16 0615 12/01/16 0615 Imaging Last 24 hours Impressions Chest X-Ray 11/27/16 0000 Signed Impressions: Service Date/Time: November 00:50 - CONCLUSION: Mild basilar atelectasis. Alonso Reyes MD Abdomen X-Ray 11/27/16 0000 Signed Impressions: Service Date/Time: November 00:53 - CONCLUSION: Dilated small bowel loops with colonic gas seen. Ileus versus developing small bowel obstruction. Alonso Reyes MD Objective Remarks Dressing dry and intact. Sitting up in chair. Assessment & Plan Assessment and Plan OOB,PT, CPM, daily wound care. Medical management for constipation and possible ileus. Kathy Bucio MD Dec 01, 2016 11:37
[2016-12-01 11:44] VITALS: BP 113/62; PULSE 100; RESP 18; TEMP 96.1; O2SAT 95
--- NOTE | 2016-12-01 11:59 | HHI.PR ---
Subjective Remarks Follow-up for small bowel obstruction Patient stated that he is passing flatus. Patient denies any nausea or vomiting. He is trying clear liquid diet. Per patient he feels like he is doing better. He also stated that he is walking down the hallways a lot. Objective Vitals Vital Signs Date Time Temp Pulse Resp B/P Pulse Ox O2 Delivery O2 Flow Rate FiO2 12/01/16 11:44 96.1 100 18 113/62 95 12/01/16 07:53 98.2 95 18 133/68 93 12/01/16 03:35 97.6 90 19 126/63 95 12/01/16 01:00 96.8 92 18 104/58 93 11/30/16 20:55 Room Air 2.00 21 11/30/16 19:40 98.4 93 18 117/66 96 11/30/16 16:00 98.2 96 18 102/70 94 11/30/16 12:00 98.3 98 18 108/67 96 I/O 11/30/16 11/30/16 11/30/16 12/01/16 12/01/16 12/01/16 07:00 15:00 23:00 07:00 15:00 23:00 Intake Total 0 ml 240 ml Output Total 800 ml 200 ml 250 ml Balance -800 ml -200 ml -10 ml Intake Oral 0 ml 240 ml Output Urine Total 800 ml 200 ml 250 ml # Voids 1 # Bowel Movements 0 0 0 0 Result Diagram: 12/01/1615 12/01/16 0615 Objective Remarks GENERAL: in NAD CARDIOVASCULAR: Regular rate and rhythm without murmurs, gallops, or rubs. RESPIRATORY: Breath sounds equal bilaterally. No accessory muscle use. GASTROINTESTINAL: Abdomen soft, non-tender, nondistended. no peritoneal signs. Normoactive bowel sounds. MUSCULOSKELETAL: No cyanosis, or edema. BACK: Nontender without obvious deformity. No CVA tenderness. Medications and IVs Current Medications Lactated Ringer's 1,000 ml @ 30 mls/hr Q24H IV Last administered on 11/25/16t 06:30; Start 11/25/16 at 06:30; Stop 11/25/16 at 20:49; Status DC Sodium Chloride (NS 500 ml Inj) 500 ml @ 30 mls/hr [id number] IV ; Start 11/25/16 at 06:30; Stop 11/25/16 at 20:49; Status DC Insulin Human Regular (NovoLIN R INJ) See Protocol Table ... UNSCH X1 PRN SQ SEE PROTOCOL; Start 11/25/16 at 06:30; Stop 11/25/16 at 20:49; Status DC Metoprolol Tartrate (Lopressor) 25 mg UNSCH X1 PRN PO SEE LABEL COMMENTS; Start 11/25/16 at 06:30; Stop 11/25/16 at 20:49; Status DC Chlorhexidine Gluconate (Chlorhexidine 2% Cloth) USE 3 PACKS FOR BATH O... ONCE ONCE TOP ; Start 11/25/16 at 06:30; Stop 11/25/16 at 06:35; Status DC Povidone Iodine (Betadine 5% Antisepsis Kit) APPLY TO EACH NARE AT LEAST ONE H... ONCE ONCE TOPICAL ; Start 11/25/16 at 06:30; Stop 11/25/16 at 06:36; Status DC Povidone Iodine (Betadine 7.5% Scrub) 1 applic ONCE TOP ; Start 11/25/16 at 06: 45; Stop 11/28/16 at 06:44; Status DC Chlorhexidine Gluconate 1 applic 1 applic ONCE TOP ; Start 11/25/16 at 06:45; Stop 11/28/16 at 06:44; Status DC Cefazolin Sodium/ Dextrose 50 ml @ 100 mls/hr WAGON PERSON IV ; Start 11/25/16 at 06:45; Stop 11/28/16 at 06:44; Status DC Vancomycin HCl 1000 mg/Sodium Chloride 250 ml @ 250 mls/hr WAGON PERSON IV Last administered on 11/25/16 06:42; Start 11/25/16 at 06:45; Stop 11/28/16 at 06:44 ; Status DC Tranexamic Acid 1135 mg/Sodium Chloride 111.35 ml @ 200 mls/ hr ONCE IV Last administered on 11/25/16 09:03; Start 11/25/16 at 08:00; Stop 11/25/16 at 14:00 ; Status DC Tranexamic Acid 1135 mg/Sodium Chloride 111.35 ml @ 200 mls/ hr ONCE IV Last administered on 11/25/16 11:24; Start 11/25/16 at 11:00; Stop 11/25/16 at 12:00 ; Status DC Bupivacaine Liposome 20 ml/ Bupivacaine HCl 20 ml/Sodium Chloride 140 ml @ 200 mls/hr ONCE P-ARTICULR Last administered on 11/25/16 09:02; Start 11/25/16 at 08:00; Stop 11/25/16 at 14:00; Status DC Sodium Chloride (NS 250 ml Inj) 250 ml @ As Directed STK-MED ONCE .ROUTE ; Start 11/25/16 at 06:35; Stop 11/25/16 at 06:36; Status DC Vancomycin HCl (Vancomycin Inj) 1,000 mg STK-MED ONCE .ROUTE ; Start 11/25/16 at 06:35; Stop 11/25/16 at 06:36; Status DC Cefazolin Sodium (Ancef Inj) 2,000 mg STK-MED ONCE .ROUTE Last administered on 11/25/16 07:59; Start 11/25/16 at 07:04; Stop 11/25/16 at 07:05; Status DC Midazolam HCl (Versed Inj) 5 mg STK-MED ONCE .ROUTE Last administered on 07:16; Start 11/25/16 at 07:14; Stop 11/25/16 at 07:15; Status DC Famotidine (Pepcid Inj) 20 mg STK-MED ONCE .ROUTE Last administered on 07:19; Start 11/25/16 at 07:14; Stop 11/25/16 at 07:15; Status DC Dexamethasone Sodium Phosphate (Decadron Inj) 4 mg STK-MED ONCE .ROUTE Last administered on 11/25/16 07:18; Start 11/25/16 at 07:14; Stop 11/25/16 at 07:15 ; Status DC Amlodipine Besylate (Norvasc) 10 mg DAILY PO Last administered on 12/01/16 09: 20; Start 11/25/16 at 09:00 Docusate Sodium (Colace) 100 mg BID PO Last administered on 12/01/16 09:20; Start 11/25/16 at 09:00 Hydrochlorothiazide (Hydrodiuril) 25 mg DAILY PRN PO BLOATING Last administered on 11/28/16 09:18; Start 11/25/16 at 08:30 Lisinopril (Prinivil) 10 mg DAILY PO Last administered on 12/01/16 09:20; Start 11/26/16 at 09:00 Metoprolol Succinate (Toprol Xl) 18.75 mg DAILY PO ; Start 11/26/16 at 09:00; Stop 11/26/16 at 09:56; Status DC Potassium Chloride (KCl) 10 meq TID PO Last administered on 12/01/16 09:19; Start 11/25/16 at 09:00 Atorvastatin Calcium 20 mg 20 mg HS PO Last administered on 11/29/16 22:26; Start 11/25/16 at 21:00 Lactated Ringer's (Lr 1000 ml Inj) 1,000 ml @ 30 mls/hr Q24H IV Last administered on 11/25/16 11:23; Start 11/25/16 at 08:27; Stop 11/27/16 at 11:46 ; Status DC IV Flush (NS Flush) 2 ml UNSCH PRN IVF FLUSH AFTER USING IV ACCESS; Start 11/25 at 08:30 IV Flush 2 ml 2 ml BID IVF Last administered on 12/01/16 09:21; Start at 09:00 Cefazolin Sodium/ Sodium Chloride (Ancef Inj/NS Inj) 100 ml @ 200 mls/hr Q6H IV Last administered on 11/26/16 01:55; Start 11/25/16 at 14:00; Stop at 02:29; Status DC Miscellaneous Information (Post-op Orders (for Pharmacy)) STAT ONCE XX ; Start 11/25/16 at 08:30; Stop 11/25/16 at 11:43; Status DC Enoxaparin Sodium (Lovenox Inj) 30 mg Q12H SQ Last administered on 12/01/16 09 :19; Start 11/26/16 at 10:00 Acetaminophen/ Hydrocodone Bitart ([place] 7.5-325 Mg) 1 tab Q4H PRN PO PAIN LESS THAN 5 ON SCALE Last administered on 11/28/16 12:40; Start 11/25/16 at 08: 30 Acetaminophen/ Hydrocodone Bitart ([place] 7.5-325 Mg) 2 tab Q4H PRN PO PAIN SCALE 5 TO 10; Start 11/25/16 at 08:30 Acetaminophen 650 mg 650 mg Q6H PRN PO pain and temp over 101; Start 11/25/16 at 08:30 Tranexamic Acid/ Sodium Chloride (Cyklokapron Inj/ NS Inj) 100 ml @ 200 mls/hr UNSCH IV ; Start 11/25/16 at 08:30; Stop 11/25/16 at 10:33; Status DC Multivitamins/ Minerals Therapeutic (Theragran M Tab) 1 tab BID PO Last administered on 12/01/16 09:20; Start 11/26/16 at 21:00; Stop 01/25/17 at 20:59 Ondansetron HCl (Zofran Inj) 4 mg Q6H PRN IVP NAUSEA OR VOMITING Last administered on 11/26/16 23:10; Start 11/25/16 at 08:30 Docusate Sodium (Colace) 100 mg BID PO ; Start 11/26/16 at 21:00; Stop 11/26/16 at 21:00; Status DC Temazepam (Restoril) 15 mg HS PRN PO SLEEP; Start 11/25/16 at 08:30 Bacitracin (Bacitracin Oint Packet) 0.9 gm UNSCH X1 PRN TOP WOUND CARE; Start 11/27/16 at 10:15; Stop 11/29/16 at 10:14; Status DC Naloxone HCl (Narcan Inj) 0.4 mg UNSCH PRN IV RESPIRATORY RATE LESS THAN 10; Start 11/25/16 at 08:30; Stop 11/26/16 at 13:00; Status DC Diphenhydramine HCl (Benadryl Inj) 25 mg Q6H PRN IV ITCHING; Start 11/25/16 at 08:30; Stop 11/26/16 at 13:00; Status DC Morphine Sulfate (Morphine 1 Mg/ ml FOOD MIXER REPAIRER) 30 mg UNSCH IV Last administered on 11:25; Start 11/25/16 at 08:30; Stop 11/26/16 at 13:00; Status DC FOOD MIXER REPAIRER Dosage Infused (Pha) 1 Q8HR .XX Last administered on 11/26/16 05:52; Start 11/25/16 at 14:00; Stop 11/26/16 at 13:00; Status DC Fentanyl Citrate (fentaNYL INJ) 250 mcg [employer] ONCE .ROUTE ; Start 11/25/16 at 11:08; Stop 11/25/16 at 11:09; Status DC Morphine Sulfate (*morphine INJ PERIprocedure ONLY) 8 mg STK-MED ONCE .ROUTE Last administered on 11/25/16 11:15; Start 11/25/16 at 11:15; Stop 11/25/16 at 11:16; Status DC Hydrochlorothiazide (Hydrodiuril) 25 mg ONCE ONCE PO Last administered on 11/26 01:55; Start 11/26/16 at 00:45; Stop 11/26/16 at 00:48; Status DC Metoprolol Succinate (Toprol Xl) 12.5 mg DAILY PO Last administered on 09:00; Start 11/26/16 at 10:00 Bupivacaine HCl (Marcaine Pf 0.5% Inj) 20 ml STK-MED ONCE NB ; Start 11/25/16 at 12:25; Stop 11/26/16 at 12:25; Status DC Propofol (Diprivan 200 Mg/20 ml Inj) 200 mg STK-MED ONCE IV ; Start 11/25/16 at 14:30; Stop 11/26/16 at 14:31; Status DC Ephedrine Sulfate (ePHEDrine/NS 25 MG/5 ML SYR) 25 mg STK-MED ONCE IV ; Start at 14:30; Stop 11/26/16 at 14:31; Status DC Neostigmine Methylsulfate (Prostigmin Inj) 3 mg STK-MED ONCE IV ; Start at 14:30; Stop 11/26/16 at 14:31; Status DC Phenylephrine HCl (Neosynephrine/ NS 1000 Mcg/10ml Syr) 1,000 mcg STK-MED ONCE IV ; Start 11/25/16 at 14:30; Stop 11/26/16 at 14:31; Status DC Ondansetron HCl 4 mg 4 mg STK-MED ONCE IV PUSH ; Start 11/25/16 at 14:30; Stop 11/26/16 at 14:31; Status DC Lactated Ringer's (Lr 1000 ml Inj) 1,000 ml @ As Directed STK-MED ONCE IV ; Start 11/25/16 at 14:30; Stop 11/26/16 at 14:32; Status DC Pantoprazole Sodium 40 mg 40 mg DAILY IV PUSH Last administered on 12/01/16 09 :21; Start 11/27/16 at 11:45 Sodium Chloride (NS 1000 ml Inj) 1,000 ml @ 60 mls/hr [id number] IV Last administered on 11/28/16 22:17; Start 11/27/16 at 11:45 Diatrizoate Meglum/ Diatrizoate Sod ( Gastrotrini Liq) 18 ml ONCE ONCE PO Last administered on 11/29/16 18:32; Start 11/29/16 at 18:15; Stop 11/29/16 at 18:16; Status DC Iohexol (Omnipaque 350 Inj) 95 ml STK-MED ONCE IV Last administered on 21:35; Start 11/29/16 at 21:35; Stop 11/29/16 at 21:36; Status DC Alprazolam (Xanax) 0.25 mg Q8H PRN PO anxiety; Start 11/30/16 at 15:00 Polyethylene Glycol (Miralax) 17 gm DAILY PO ; Start 12/01/16 at 10:00 Metoclopramide HCl (Reglan Inj) 10 mg Q8H IV PUSH ; Start 12/01/16 at 10:00 A/P Assessment and Plan Partial small bowel obstruction -CT scan yesterday is showing partial small bowel obstruction versus ileus. -Gen. surgery is following and stated continue conservative management. -Patient given clear liquid diet. Avoid narcotics. Severe OA of Left Knee -status post Left Total Knee Arthroplasty, by Doctor Xavier Bucio . -Management as per orthopedic surgery. Paroxysmal atrial fibrillation -Has pacemaker. -on lovenox 30 mg sq BID (on eliquis at home). - resume metoprolol when taking by mouth. DANA/Hypertension/CAD s/p CABG/Cardiomyopathy, chronic systolic CHF Mild reduction of Left Ventricular function EF 50%/Morbid/chronic kidney disease stage III. Obesity BMI 40.4 - aspirin not reported on home meds, this will need following up when he is taking PO. - currently compensated. monitor for any fluid overload. -Avoid nephrotoxins. -DVT prophylaxis- Lovenox (resume eliquis when taking PO and cleared by surgery) . Discharge Planning Once patient able to tolerate by mouth intake most likely medically cleared to be discharged to SNF. Donna Robert MD Dec 01, 2016 11:59
--- NOTE | 2016-12-01 14:09 | PD.CONS ---
Provisional Diagnosis Admission Date Nov 25, 2016 at 06:00 [place] I. Adjustment disorder with anxiety [place] II. Deferred [place] III. OA, A. fib, HTN History of Present Illness Service Psychiatry Consult Requested By Primary Care Physician Unknown HPI The patient is a 81-year-old man, domiciled with his and Yamilet Sanders, retired, without any previous psychiatric history, no previous psychiatric hospitalizations, no previous suicidal attempts, with medical history of HTN, hyperlipidemia, OA, CAD, A. fib, kidney stones, DANA who was admitted to [facility] on 11/25/16 for elective left total knee arthroplasty with Dr. Bucio. Post-operatively the pt has done fairly well but began complaining about some nausea and some burning chest discomfort after he takes his pills. KUB on 11/27 noted dilated small bowel loops with colonic gas seen. Repeat KUB on 11/28 with similar findings of multiple dilated loops of air-filled small bowel in the left upper abdomen suggesting ileus. Patient was consulted to psychiatry due to symptomatology of anxiety and insomnia. On psychiatric evaluation patient is found laying down in his bed, calm, cooperative and pleasant. Patient states that in the last 3-4 days he has been frustrated, feeling anxious, angry. He says that this is the first time in his life that he has been no controlling the situation in his surroundings. 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 He also says that even before coming to the hospital he has face and some problems at home with her [id number] and he has been thinking a lot about it. Being in the hospital, in bed, doing nothing happened brought a lot of bad memories about traumatic experiences of his past and for this reason he has been even more anxious and at times sad, however he denies anhedonia, he denies helplessness, he denies worthless is, he denies low energy, he does report difficulty sleeping at night, increased anxiety during the day, disrupted thought and frustration. He denies visual and auditory hallucinations, patient is fully oriented and history. Patient denies that use of illicit drugs, he drinks alcohol occasionally maybe once a month, a cup of wine. Review of Systems Constitutional: DENIES: Diaphoretic episodes, Fatigue, Fever, Weight gain, Weight loss, Chills, Dizziness, Change in appetite, Night Sweats Endocrine: DENIES: Heat/cold intolerance, Polydipsia, Polyuria, Polyphagia Eyes: DENIES: Blurred vision, Diplopia, Eye inflammation, Eye pain, Vision loss , Photosensitivity, Double Vision Ears, nose, mouth, throat: DENIES: Tinnitus, Hearing loss, Vertigo, Nasal discharge, Oral lesions, Throat pain, Hoarseness, Ear Pain, Running Nose, Epistaxis, Sinus Pain, Toothache, Odynophagia Respiratory: DENIES: Apneas, Cough, Snoring, Wheezing, Hemoptysis, Sputum production, Shortness of breath Cardiovascular: DENIES: Chest pain, Palpitations, Syncope, Dyspnea on Exertion , PND, Lower Extremity Edema, Orthopnea, Claudication Gastrointestinal: DENIES: Abdominal pain, Black stools, Bloody stools, Constipation, Diarrhea, Nausea, Vomiting, Difficulty Swallowing, Anorexia Musculoskeletal: DENIES: Joint pain, Muscle aches, Stiffness, Joint Swelling, Back pain, Neck pain Integumentary: DENIES: Abnormal pigmentation, Nail changes, Pruritus, Rash Immunologic/allergic: DENIES: Eczema, Urticaria Neurologic: DENIES: Abnormal gait, Headache, Localized weakness, Paresthesias, Seizures, Speech Problems, Tremor, Poor Balance Psychiatric: COMPLAINS OF: Anxiety, Depression Past Family Social History Coded Allergies: Lasix (Verified Allergy, Severe, ANAPHYLAXIS, 11/18/16) Seafood (Verified Allergy, Severe, 11/18/16) Voltaren (Verified Allergy, Severe, ANAPHYLAXIS, 11/18/16) MRI PRECAUTION (Verified Adverse Reaction, Severe, 11/18/16) PT HAS PACER Sulfa (Verified Adverse Reaction, Severe, HEAD ACHE, 11/18/16) Reported Medications Amlodipine 10 Mg Tab10 Mg PO DAILY #30 TAB Ref 0 11/25/16 Potassium Chloride ER 10 Meq Cap10 Meq PO TID #60 CAP Ref 0 11/17/16 Rosuvastatin (Crestor)10 Mg Tab10 Mg PO HS #30 TAB Ref 0 11/17/16 Metoprolol Succinate ER 24 HR 25 Mg Tab18.75 Mg PO DAILY #30 TAB Ref 0 PT STATES HE TAKES 3/4 OF 25MG TAB 11/17/16 Lisinopril 10 Mg Tab10 Mg PO DAILY #30 TAB Ref 0 11/17/16 Hydrochlorothiazide 25 Mg Tab25 Mg PO DAILY PRN (BLOATING) #30 TAB Ref 0 11/17/16 Docusate Sodium (Colace)100 Mg Qde490 Mg PO BID #60 CAP Ref 0 11/17/16 Apixaban (Eliquis)5 Mg Tab5 Mg PO BID #60 TAB Ref 0 11/17/16 Current Medications Medications (Trade) Dose Ordered Sig/[place]vador Route Start Time Stop Time Status Last Admin (Norvasc) 10 mg DAILY PO 11/25/16 09:00 12/01/16 09:20 (Colace) 100 mg BID PO 11/25/16 09:00 12/01/16 09:20 (Hydrodiuril) 25 mg DAILY PRN PO 11/25/16 08:30 11/28/16 09:18 (Prinivil) 10 mg DAILY PO 11/26/16 09:00 12/01/16 09:20 (KCl) 10 meq TID PO 11/25/16 09:00 12/01/16 09:19 (Lipitor) 20 mg HS PO 11/25/16 21:00 11/29/16 22:26 (NS Flush) 2 ml UNSCH PRN IVF 11/25/16 08:30 (NS Flush) 2 ml BID IVF 11/25/16 09:00 12/01/16 09:21 (Lovenox Inj) 30 mg Q12H SQ 11/26/16 10:00 12/01/16 09:19 (Miranda 7.5-325 Mg) 1 tab Q4H PRN PO 11/25/16 08:30 11/28/16 12:40 (Miranda 7.5-325 Mg) 2 tab Q4H PRN PO 11/25/16 08:30 (Tylenol) 650 mg Q6H PRN PO 11/25/16 08:30 (Theragran M Tab) 1 tab BID PO 11/26/16 21:00 01/25/17 20:59 12/01/16 09:20 (Zofran Inj) 4 mg Q6H PRN IVP 11/25/16 08:30 11/26/16 23:10 (Restoril) 15 mg HS PRN PO 11/25/16 08:30 (Toprol Xl) 12.5 mg DAILY PO 11/26/16 10:00 12/01/16 09:00 Pantoprazole Sodium 40 mg 40 mg DAILY IV PUSH 11/27/16 11:45 12/01/16 09:21 (NS 1000 ml Inj) 1,000 ml @ 60 mls/hr [id number] IV 11/27/16 11:45 11/28/16 22:17 (Xanax) 0.25 mg Q8H PRN PO 11/30/16 15:00 (Miralax) 17 gm DAILY PO 12/01/16 10:00 12/01/16 10:00 (Reglan Inj) 10 mg Q8H IV PUSH 12/01/16 10:00 12/01/16 10:00 (KlonoPIN) 0.5 mg Q12HR PO 12/01/16 14:00 UNV Family History He denies Social History Patient was born and raised in [place], he has been living in [place] since 1964, he has been twice, he lives with his in [place], he has 6 kids, 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, his highest level of education is 2 years college Physical Exam On physical examination no tremors, no stiffness, no EPS, no hyperactivity are present Vital Signs Vital Signs Date Time Temp Pulse Resp B/P Pulse Ox O2 Delivery O2 Flow Rate FiO2 12/01/16 11:44 96.1 100 18 113/62 95 11/30/16 20:55 Room Air 2.00 21 I/O 11/30/16 11/30/16 12/01/16 08:00 16:00 00:00 Intake Total 0 ml Output Total 200 ml Balance -200 ml Mental Status Examination Appearance Overweight man, [facility], age appearing, good hygiene, he is calm, cooperative and pleasant Speech: Unremarkable Memory: Unremarkable Thought Process: Logical Thought Content: Unremarkable Hallucination Type: None Suicidal Ideation: No Previous Homicide Attempts: No Insight: Good Affect: Euthymic Mood: Appropriate Motor Activity: Normal gait Assessment & Plan Problem List: (1) Adjustment disorder with anxiety Assessment & Plan: The patient is a 81-year-old man, domiciled with his and Erwin, retired, without any previous psychiatric history, no previous psychiatric hospitalizations, no previous suicidal attempts, with medical history of HTN, hyperlipidemia, OA, CAD, A. fib, kidney stones, DANA who was admitted to [facility] on 11/25/16 for elective left total knee arthroplasty with Dr. Bucio. Post-operatively the pt has done fairly well but began complaining about some nausea and some burning chest discomfort after he takes his pills. KUB on 11/27 noted dilated small bowel loops with colonic gas seen. Repeat KUB on 11/28 with similar findings of multiple dilated loops of air-filled small bowel in the left upper abdomen suggesting ileus. Patient was consulted to psychiatry due to symptomatology of anxiety and insomnia. On psychiatric evaluation patient reports frustration, sadness, frequent anxiety , insomnia and destructive thoughts in the context of losing the control of self and current underlying medical conditions. He denies suicidal or homicidal ideation, he denies visual and auditory hallucinations, patient is oriented 3, confusion, no fluctuation of consciousness, no gross cognitive impairment observed. Patient does not meet criteria for psychiatric admission at this moment. He will benefit of medication to decrease anxiety and to help with sleep, will order clonazepam 0.5 mg twice a day. Extensive psychoeducation , brief supportive psychotherapy provided. Consult appreciated. ICD Code: F43.22 Assessment & Plan Estimated LOS: days Js Marina MD Dec 01, 2016 14:09
[2016-12-01 15:45] VITALS: BP 126/65; PULSE 82; RESP 18; TEMP 97.3; O2SAT 94
[2016-12-01] MEDS: SODIUM CHLOR 0.9% 1000 ML INJ 1,000 ML IV SCH (15:45)
[2016-12-01] MEDS: clonazePAM 0.5 MG TAB PO SCH ×2 (16:02→21:41)
[2016-12-01] MEDS: ATORVASTATIN 20 MG TAB PO SCH (21:41)
[2016-12-02] VITALS: BP 113/62; PULSE 86; RESP 16; TEMP 97.7; O2SAT 95
[2016-12-02] MEDS: METOCLOPRAMIDE HCL 10 MG/2 ML VIAL IV PUSH SCH ×2 (02:03→09:09)
[2016-12-02 08:00] VITALS: BP 127/67; PULSE 84; RESP 22; TEMP 97.7; O2SAT 96
[2016-12-02] MEDS: SODIUM CHLOR 0.9% 1000 ML INJ 1,000 ML IV SCH (08:25)
[2016-12-02] MEDS: ENOXAPARIN SODIUM 30 MG/0.3 ML SYRINGE SQ SCH (09:07)
[2016-12-02] MEDS: PANTOPRAZOLE SODIUM 40 MG VIAL IV PUSH SCH (09:08)
[2016-12-02] MEDS: POLYETHYLENE GLYCOL 17 GM PKG PO SCH (09:08)
[2016-12-02] MEDS: MULTIVITAMINS/MINERALS THERAPEUTIC TAB PO SCH (09:08)
[2016-12-02] MEDS: LISINOPRIL 10 MG TAB PO SCH (09:08)
[2016-12-02] MEDS: DOCUSATE SODIUM 100 MG CAP PO SCH (09:08)
[2016-12-02] MEDS: POTASSIUM CHLORIDE 10 MEQ CAP PO SCH ×2 (09:08→14:28)
[2016-12-02] MEDS: METOPROLOL SUCCINATE 25 MG EXTENDED RELEASE TAB PO SCH (09:09)
[2016-12-02] MEDS: clonazePAM 0.5 MG TAB PO SCH (09:09)
[2016-12-02] MEDS: SODIUM CHLORIDE 0.9% FLUSH 5 ML FLUSH IVF SCH (09:14)
--- NOTE | 2016-12-02 09:49 | HHI.PR ---
Subjective Subjective Notes Up to chair Patient reports +BM overnight Objective Vitals/I&O Vital Signs Date Time Temp Pulse Resp B/P Pulse Ox O2 Delivery O2 Flow Rate FiO2 12/02/16 08:00 97.7 84 22 127/67 96 11/30/16 20:55 Room Air 2.00 21 Cardiovascular: Regular Lungs: Clear Abdomen: Non-distended, Non-tender Narrative Exam LEFT knee bandage in place A/P Assessment and Plan 81 year old male s/p total LEFT knee arthroplasty with post-op ileus -Advance to Fulls and advance diet as tolerated -Minimize narcotic use -Continue cathartics as needed -OOB and mobilize per weight bearing status by Dr. Bucio -No acute surgical issues at this time Devika Woods Dec 02, 2016 09:49
--- NOTE | 2016-12-02 09:52 | RADRPT ---
EXAM DATE/TIME: 12/02/2016 08:15 [place] COMPARISON: ABDOMEN KUB ONLY, November 28, 2016, 15:32. INDICATIONS : Abdominal discomfort, ileus. MEDICAL HISTORY : Hypertension. SURGICAL HISTORY : Pacemaker. Cholecystectomy. ENCOUNTER: Subsequent ACUITY: 1 week PAIN SCORE: 4/10 LOCATION: abdomen. FINDINGS: Again seen are gas dilated loops of proximal small bowel within the left mid and upper quadrant. Over all the degree of distention is unchanged from the prior study. Oral contrast is seen throughout the colon. This reaches the rectal vault. Atherosclerotic calcifications are noted. A degenerative and sc oliotic lumbar spine. CONCLUSION: Unchanged exam with dilated loops of proximal small bowel. Oral contrast is seen through the colon fr om the recent CT. Differential diagnostic considerations would include a partial small bowel obstruct ion versus a focal ileus. Andres Ramsey Jr., MD on December 02, 2016 at 9:47 Board Certified Radiologist. This report was verified electronically.
--- NOTE | 2016-12-02 10:50 | PD.ORT.PN ---
Subjective Subjective Remarks Pt not having much pain or difficulty with left leg. BM last night. Feeling better and tolerating food. Objective Vitals Vital Signs Date Time Temp Pulse Resp B/P Pulse Ox O2 Delivery O2 Flow Rate FiO2 12/02/16 08:00 97.7 84 22 127/67 96 12/02/16 00:00 97.7 86 16 113/62 95 12/01/16 15:45 97.3 82 18 126/65 94 12/01/16 11:44 96.1 100 18 113/62 95 I/O 12/01/16 12/01/16 12/01/16 12/02/16 12/02/16 12/02/16 07:00 15:00 23:00 07:00 15:00 23:00 Intake Total 240 ml 960 ml 240 ml 480 ml Output Total 250 ml 225 ml 600 ml Balance -10 ml 960 ml 15 ml -120 ml Intake Oral 240 ml 960 ml 240 ml 480 ml Output Urine Total 250 ml 225 ml 600 ml # Voids 3 # Bowel Movements 0 1 0 Result Diagram: 12/01/16 0615 12/01/16 0615 Imaging Last 24 hours Impressions Chest X-Ray 11/27/16 0000 Signed Impressions: Service Date/Time: November 00:50 - CONCLUSION: Mild basilar atelectasis. Alonso Reyes MD Abdomen X-Ray 11/27/16 0000 Signed Impressions: Service Date/Time: November 00:53 - CONCLUSION: Dilated small bowel loops with colonic gas seen. Ileus versus developing small bowel obstruction. Alonso Reyes MD Objective Remarks Dressing dry and intact. Sitting up in chair.NV intact. No calf tenderness. Assessment & Plan Assessment and Plan OOB,PT, CPM, daily wound care. Medical management for constipation and possible ileus.SNF soon. Kathy Bucio MD Dec 02, 2016 10:50
[2016-12-02] MEDS ORDERED: HYDR-3580 PO (10:53)
--- NOTE | 2016-12-02 10:56 | HHI.DS ---
Discharge Summary Admission Date Nov 25, 2016 at 06:00 Discharge Date: Dec 02, 2016 Admitting Diagnosis Osteo-Arthritic degeneration left knee Diagnosis: (1) Status post total left knee replacement Diagnosis: Principal Brief History This is a 81 year old male patient CBC/BMP: 12/01/16 0615 12/01/16 0615 Significant Findings Laboratory Tests Test 11/29/16 12/01/16 15:28 06:15 Blood Urea Nitrogen 21 MG/DL (7-18) 29 MG/DL (7-18) Estimat Glomerular Filtration 82 ML/MIN (>89) 76 ML/MIN (>89) Rate Total Protein 6.3 GM/DL (6.4-8.2) Albumin 2.7 GM/DL (3.4-5.0) Hemoglobin 11.4 GM/DL (13.0-17.0) Hematocrit 34.2 % (39.0-51.0) Mean Corpuscular Volume 75.0 FL (80.0-100.0) Mean Corpuscular Hemoglobin 25.0 PG (27.0-34.0) Monocytes (%) (Auto) 13.8 % (0.0-8.0) Lymphocytes # (Auto) 0.9 TH/MM3 (1.0-4.8) PE at Discharge Dressing dry and intact. Sitting up in chair.NV intact. No calf tenderness. Hospital Course Patient underwent a left total knee arthroplasty on day of admission. He received a course of prophylactic IV antibiotics and began anticoagulation therapy within 23 hours of surgery. He did develop an ileus and was managed by the medical service after the ileus resolved he began tolerating a liquid diet well. On day 7 he had a bowel movement. He continued to progress with physical therapy weight-bear to tolerance. He had daily wound care and use of the CPM. He continued to improve and was discharged to nursing home facility on postoperative day 8 in good condition with instructions for follow- up appointment in the orthopedic office in 1 week time. He was discharged with a prescription for pain medication. Anticoagulation therapy will be handled by the medical service. Pt Condition on Discharge: Good Discharge Disposition: Discharge to SNF Discharge Instructions Diet Instructions: Heart Healthy Diet Activities You Can Perform: Full Weight Bearing, Shower Only-No Bath Activities to Avoid: Bathing, Driving Kathy Bucio MD Dec 02, 2016 10:56
[2016-12-02 12:00] VITALS: BP 117/59; PULSE 22; RESP 22; TEMP 96; O2SAT 96
--- NOTE | 2016-12-02 13:04 | HHI.PYPN ---
Subjective Remarks Patient seen for psychiatric reevaluation today, patient was sitting in a chair in his room, calm, cooperative and pleasant, patient says that he is thankful for the clonazepam 0.5 mg twice a day, he says that his anxiety is much better now, he also states that he is left very good last night, he reports good mood, good motivation to continue his treatment, denies suicidal or homicidal ideation , denies visual and auditory hallucinations. Patient is fully oriented 3, no gross cognitive impairment observed. No agitation, aggressive behavior, paranoia or delusional observed or reported. Review of Systems Constitutional: DENIES: Diaphoretic episodes, Fatigue, Fever, Weight gain, Weight loss, Chills, Dizziness, Change in appetite, Night Sweats Endocrine: DENIES: Heat/cold intolerance, Polydipsia, Polyuria, Polyphagia Eyes: DENIES: Blurred vision, Diplopia, Eye inflammation, Eye pain, Vision loss , Photosensitivity, Double Vision Ears, nose, mouth, throat: DENIES: Tinnitus, Hearing loss, Vertigo, Nasal discharge, Oral lesions, Throat pain, Hoarseness, Ear Pain, Running Nose, Epistaxis, Sinus Pain, Toothache, Odynophagia Respiratory: DENIES: Apneas, Cough, Snoring, Wheezing, Hemoptysis, Sputum production, Shortness of breath Cardiovascular: DENIES: Chest pain, Palpitations, Syncope, Dyspnea on Exertion , PND, Lower Extremity Edema, Orthopnea, Claudication Gastrointestinal: DENIES: Abdominal pain, Black stools, Bloody stools, Constipation, Diarrhea, Nausea, Vomiting, Difficulty Swallowing, Anorexia Musculoskeletal: DENIES: Joint pain, Muscle aches, Stiffness, Joint Swelling, Back pain, Neck pain Integumentary: DENIES: Abnormal pigmentation, Nail changes, Pruritus, Rash Hematologic/lymphatic: DENIES: Bruising, Lymphadenopathy Immunologic/allergic: DENIES: Eczema, Urticaria Neurologic: DENIES: Abnormal gait, Headache, Localized weakness, Paresthesias, Seizures, Speech Problems, Tremor, Poor Balance Psychiatric: DENIES: Anxiety, Confusion, Mood changes, Depression, Hallucinations, Agitation, Suicidal Ideation, Homicidal Ideation, Delusions Objective Alert: Yes [place]: Person, Place, Date, Situation Mood: Calm Affect: Euthymic Memory Intact: Immediate, Recent, Remote Hallucinations: Other (none) Delusions: No Delusion Type: Other (none) Suicidal: Ideation (patient denies) Homicidal: Ideation (patient denies) Insight/Judgement Good Vitals/IOs Vital Signs Date Time Temp Pulse Resp B/P Pulse Ox O2 Delivery O2 Flow Rate FiO2 12/02/16 08:00 97.7 84 22 127/67 96 11/30/16 20:55 Room Air 2.00 21 Intake and Output 12/01/16 12/01/16 12/02/16 08:00 16:00 00:00 Intake Total 240 ml 960 ml 240 ml Output Total 250 ml 225 ml Balance -10 ml 960 ml 15 ml Assessment & Plan Problem List: (1) Adjustment disorder with anxiety Assessment & Plan: Continue clonazepam 0.5 mg twice a day for anxiety Extensive support, motivation psycho education provided Psychiatry will sign off ICD Code: F43.22 Assessment & Plan Estimated LOS: days Justification for Cont. Inpt. Patient does not need psychiatric hospitalization. Js Marina MD Dec 02, 2016 13:04
[2016-12-02 16:00] VITALS: BP 109/61; PULSE 90; RESP 18; TEMP 96.9; O2SAT 98
--- NOTE | 2016-12-02 20:35 | HHI.PR ---
Subjective Remarks patient has no complaints. He stated he is tolerating the diet. + BM and flatus. he has no other complaints. Objective Vitals Vital Signs Date Time Temp Pulse Resp B/P Pulse Ox O2 Delivery O2 Flow Rate FiO2 12/02/16 16:00 96.9 90 18 109/61 98 12/02/16 12:00 96.0 22 22 117/59 96 12/02/16 08:00 97.7 84 22 127/67 96 12/02/16 00:00 97.7 86 16 113/62 95 I/O 12/01/16 12/01/16 12/01/16 12/02/16 12/02/16 12/02/16 07:00 15:00 23:00 07:00 15:00 23:00 Intake Total 240 ml 960 ml 240 ml 480 ml 360 ml Output Total 250 ml 225 ml 600 ml Balance -10 ml 960 ml 15 ml -120 ml 360 ml Intake Oral 240 ml 960 ml 240 ml 480 ml 360 ml Output Urine Total 250 ml 225 ml 600 ml # Voids 3 1 # Bowel Movements 0 1 0 Result Diagram: 12/01/1661412/01/16614 Objective Remarks GENERAL: in NAD CARDIOVASCULAR: Regular rate and rhythm without murmurs, gallops, or rubs. RESPIRATORY: Breath sounds equal bilaterally. No accessory muscle use. GASTROINTESTINAL: Abdomen soft, non-tender, nondistended. no peritoneal signs. Normoactive bowel sounds. MUSCULOSKELETAL: No cyanosis, or edema. BACK: Nontender without obvious deformity. No CVA tenderness. Medications and IVs Current Medications Lactated Ringer's 1,000 ml @ 30 mls/hr Q24H IV Last administered on 11/25/16t 06:30; Start 11/25/16 at 06:30; Stop 11/25/16 at 20:49; Status DC Sodium Chloride (NS 500 ml Inj) 500 ml @ 30 mls/hr [id number] IV ; Start 11/25/16 at 06:30; Stop 11/25/16 at 20:49; Status DC Insulin Human Regular (NovoLIN R INJ) See Protocol Table ... UNSCH X1 PRN SQ SEE PROTOCOL; Start 11/25/16 at 06:30; Stop 11/25/16 at 20:49; Status DC Metoprolol Tartrate (Lopressor) 25 mg UNSCH X1 PRN PO SEE LABEL COMMENTS; Start 11/25/16 at 06:30; Stop 11/25/16 at 20:49; Status DC Chlorhexidine Gluconate (Chlorhexidine 2% Cloth) USE 3 PACKS FOR BATH O... ONCE ONCE TOP ; Start 11/25/16 at 06:30; Stop 11/25/16 at 06:35; Status DC Povidone Iodine (Betadine 5% Antisepsis Kit) APPLY TO EACH NARE AT LEAST ONE H... ONCE ONCE TOPICAL ; Start 11/25/16 at 06:30; Stop 11/25/16 at 06:36; Status DC Povidone Iodine (Betadine 7.5% Scrub) 1 applic ONCE TOP ; Start 11/25/16 at 06: 45; Stop 11/28/16 at 06:44; Status DC Chlorhexidine Gluconate 1 applic 1 applic ONCE TOP ; Start 11/25/16 at 06:45; Stop 11/28/16 at 06:44; Status DC Cefazolin Sodium/ Dextrose 50 ml @ 100 mls/hr TOOL AND DIE MACHINIST IV ; Start 11/25/16 at 06:45; Stop 11/28/16 at 06:44; Status DC Vancomycin HCl 1000 mg/Sodium Chloride 250 ml @ 250 mls/hr TOOL AND DIE MACHINIST IV Last administered on 11/25/16 06:42; Start 11/25/16 at 06:45; Stop 11/28/16 at 06:44 ; Status DC Tranexamic Acid 1135 mg/Sodium Chloride 111.35 ml @ 200 mls/ hr ONCE IV Last administered on 11/25/16 09:03; Start 11/25/16 at 08:00; Stop 11/25/16 at 14:00 ; Status DC Tranexamic Acid 1135 mg/Sodium Chloride 111.35 ml @ 200 mls/ hr ONCE IV Last administered on 11/25/16 11:24; Start 11/25/16 at 11:00; Stop 11/25/16 at 12:00 ; Status DC Bupivacaine Liposome 20 ml/ Bupivacaine HCl 20 ml/Sodium Chloride 140 ml @ 200 mls/hr ONCE P-ARTICULR Last administered on 11/25/16 09:02; Start 11/25/16 at 08:00; Stop 11/25/16 at 14:00; Status DC Sodium Chloride (NS 250 ml Inj) 250 ml @ As Directed STK-MED ONCE .ROUTE ; Start 11/25/16 at 06:35; Stop 11/25/16 at 06:36; Status DC Vancomycin HCl (Vancomycin Inj) 1,000 mg STK-MED ONCE .ROUTE ; Start 11/25/16 at 06:35; Stop 11/25/16 at 06:36; Status DC Cefazolin Sodium (Ancef Inj) 2,000 mg STK-MED ONCE .ROUTE Last administered on 11/25/16 07:59; Start 11/25/16 at 07:04; Stop 11/25/16 at 07:05; Status DC Midazolam HCl (Versed Inj) 5 mg STK-MED ONCE .ROUTE Last administered on 07:16; Start 11/25/16 at 07:14; Stop 11/25/16 at 07:15; Status DC Famotidine (Pepcid Inj) 20 mg STK-MED ONCE .ROUTE Last administered on 07:19; Start 11/25/16 at 07:14; Stop 11/25/16 at 07:15; Status DC Dexamethasone Sodium Phosphate (Decadron Inj) 4 mg STK-MED ONCE .ROUTE Last administered on 11/25/16 07:18; Start 11/25/16 at 07:14; Stop 11/25/16 at 07:15 ; Status DC Amlodipine Besylate (Norvasc) 10 mg DAILY PO Last administered on 12/02/16 09: 09; Start 11/25/16 at 09:00; Stop 12/02/16 at 16:45; Status DC Docusate Sodium (Colace) 100 mg BID PO Last administered on 12/02/16 09:08; Start 11/25/16 at 09:00; Stop 12/02/16 at 16:45; Status DC Hydrochlorothiazide (Hydrodiuril) 25 mg DAILY PRN PO BLOATING Last administered on 11/28/16 09:18; Start 11/25/16 at 08:30; Stop 12/02/16 at 16:45 ; Status DC Lisinopril (Prinivil) 10 mg DAILY PO Last administered on 12/02/16 09:08; Start 11/26/16 at 09:00; Stop 12/02/16 at 16:45; Status DC Metoprolol Succinate (Toprol Xl) 18.75 mg DAILY PO ; Start 11/26/16 at 09:00; Stop 11/26/16 at 09:56; Status DC Potassium Chloride (KCl) 10 meq TID PO Last administered on 12/02/16 14:28; Start 11/25/16 at 09:00; Stop 12/02/16 at 16:45; Status DC Atorvastatin Calcium 20 mg 20 mg HS PO Last administered on 12/01/16 21:41; Start 11/25/16 at 21:00; Stop 12/02/16 at 16:45; Status DC Lactated Ringer's (Lr 1000 ml Inj) 1,000 ml @ 30 mls/hr Q24H IV Last administered on 11/25/16 11:23; Start 11/25/16 at 08:27; Stop 11/27/16 at 11:46 ; Status DC IV Flush (NS Flush) 2 ml UNSCH PRN IVF FLUSH AFTER USING IV ACCESS; Start 11/25 at 08:30; Stop 12/02/16 at 16:45; Status DC IV Flush 2 ml 2 ml BID IVF Last administered on 12/02/16 09:14; Start at 09:00; Stop 12/02/16 at 16:45; Status DC Cefazolin Sodium/ Sodium Chloride (Ancef Inj/NS Inj) 100 ml @ 200 mls/hr Q6H IV Last administered on 11/26/16 01:55; Start 11/25/16 at 14:00; Stop at 02:29; Status DC Miscellaneous Information (Post-op Orders (for Pharmacy)) STAT ONCE XX ; Start 11/25/16 at 08:30; Stop 11/25/16 at 11:43; Status DC Enoxaparin Sodium (Lovenox Inj) 30 mg Q12H SQ Last administered on 12/02/16 09 :07; Start 11/26/16 at 10:00; Stop 12/02/16 at 16:45; Status DC Acetaminophen/ Hydrocodone Bitart (Chase 7.5-325 Mg) 1 tab Q4H PRN PO PAIN LESS THAN 5 ON SCALE Last administered on 11/28/16 12:40; Start 11/25/16 at 08: 30; Stop 12/02/16 at 16:45; Status DC Acetaminophen/ Hydrocodone Bitart (Chase 7.5-325 Mg) 2 tab Q4H PRN PO PAIN SCALE 5 TO 10; Start 11/25/16 at 08:30; Stop 12/02/16 at 16:45; Status DC Acetaminophen 650 mg 650 mg Q6H PRN PO pain and temp over 101; Start 11/25/16 at 08:30; Stop 12/02/16 at 16:45; Status DC Tranexamic Acid/ Sodium Chloride (Cyklokapron Inj/ NS Inj) 100 ml @ 200 mls/hr UNSCH IV ; Start 11/25/16 at 08:30; Stop 11/25/16 at 10:33; Status DC Multivitamins/ Minerals Therapeutic (Theragran M Tab) 1 tab BID PO Last administered on 12/02/16 09:08; Start 11/26/16 at 21:00; Stop 12/02/16 at 16:45 ; Status DC Ondansetron HCl (Zofran Inj) 4 mg Q6H PRN IVP NAUSEA OR VOMITING Last administered on 11/26/16 23:10; Start 11/25/16 at 08:30; Stop 12/02/16 at 16:45 ; Status DC Docusate Sodium (Colace) 100 mg BID PO ; Start 11/26/16 at 21:00; Stop 11/26/16 at 21:00; Status DC Temazepam (Restoril) 15 mg HS PRN PO SLEEP Last administered on 12/02/16 02:02 ; Start 11/25/16 at 08:30; Stop 12/02/16 at 16:45; Status DC Bacitracin (Bacitracin Oint Packet) 0.9 gm UNSCH X1 PRN TOP WOUND CARE; Start 11/27/16 at 10:15; Stop 11/29/16 at 10:14; Status DC Naloxone HCl (Narcan Inj) 0.4 mg UNSCH PRN IV RESPIRATORY RATE LESS THAN 10; Start 11/25/16 at 08:30; Stop 11/26/16 at 13:00; Status DC Diphenhydramine HCl (Benadryl Inj) 25 mg Q6H PRN IV ITCHING; Start 11/25/16 at 08:30; Stop 11/26/16 at 13:00; Status DC Morphine Sulfate (Morphine 1 Mg/ ml CLINICAL CYTOGENETICIST) 30 mg UNSCH IV Last administered on 11:25; Start 11/25/16 at 08:30; Stop 11/26/16 at 13:00; Status DC CLINICAL CYTOGENETICIST Dosage Infused (Pha) 1 Q8HR .XX Last administered on 11/26/16 05:52; Start 11/25/16 at 14:00; Stop 11/26/16 at 13:00; Status DC Fentanyl Citrate (fentaNYL INJ) 250 mcg STK-MED ONCE .ROUTE ; Start 11/25/16 at 11:08; Stop 11/25/16 at 11:09; Status DC Morphine Sulfate (*morphine INJ PERIprocedure ONLY) 8 mg STK-MED ONCE .ROUTE Last administered on 11/25/16 11:15; Start 11/25/16 at 11:15; Stop 11/25/16 at 11:16; Status DC Hydrochlorothiazide (Hydrodiuril) 25 mg ONCE ONCE PO Last administered on 11/26 01:55; Start 11/26/16 at 00:45; Stop 11/26/16 at 00:48; Status DC Metoprolol Succinate (Toprol Xl) 12.5 mg DAILY PO Last administered on 09:09; Start 11/26/16 at 10:00; Stop 12/02/16 at 16:45; Status DC Bupivacaine HCl (Marcaine Pf 0.5% Inj) 20 ml STK-MED ONCE NB ; Start 11/25/16 at 12:25; Stop 11/26/16 at 12:25; Status DC Propofol (Diprivan 200 Mg/20 ml Inj) 200 mg STK-MED ONCE IV ; Start 11/25/16 at 14:30; Stop 11/26/16 at 14:31; Status DC Ephedrine Sulfate (ePHEDrine/NS 25 MG/5 ML SYR) 25 mg STK-MED ONCE IV ; Start at 14:30; Stop 11/26/16 at 14:31; Status DC Neostigmine Methylsulfate (Prostigmin Inj) 3 mg STK-MED ONCE IV ; Start at 14:30; Stop 11/26/16 at 14:31; Status DC Phenylephrine HCl (Neosynephrine/ NS 1000 Mcg/10ml Syr) 1,000 mcg STK-MED ONCE IV ; Start 11/25/16 at 14:30; Stop 11/26/16 at 14:31; Status DC Ondansetron HCl 4 mg 4 mg STK-MED ONCE IV PUSH ; Start 11/25/16 at 14:30; Stop 11/26/16 at 14:31; Status DC Lactated Ringer's (Lr 1000 ml Inj) 1,000 ml @ As Directed STK-MED ONCE IV ; Start 11/25/16 at 14:30; Stop 11/26/16 at 14:32; Status DC Pantoprazole Sodium 40 mg 40 mg DAILY IV PUSH Last administered on 12/02/16 09 :08; Start 11/27/16 at 11:45; Stop 12/02/16 at 16:45; Status DC Sodium Chloride (NS 1000 ml Inj) 1,000 ml @ 60 mls/hr [id number] IV Last administered on 11/28/16 22:17; Start 11/27/16 at 11:45; Stop 12/02/16 at 16:45 ; Status DC Diatrizoate Meglum/ Diatrizoate Sod ( Gastroview Liq) 18 ml ONCE ONCE PO Last administered on 11/29/16 18:32; Start 11/29/16 at 18:15; Stop 11/29/16 at 18:16; Status DC Iohexol (Omnipaque 350 Inj) 95 ml STK-MED ONCE IV Last administered on 21:35; Start 11/29/16 at 21:35; Stop 11/29/16 at 21:36; Status DC Alprazolam (Xanax) 0.25 mg Q8H PRN PO anxiety; Start 11/30/16 at 15:00; Stop at 16:45; Status DC Polyethylene Glycol (Miralax) 17 gm DAILY PO Last administered on 12/02/16 09: 08; Start 12/01/16 at 10:00; Stop 12/02/16 at 16:45; Status DC Metoclopramide HCl (Reglan Inj) 10 mg Q8H IV PUSH Last administered on 09:09; Start 12/01/16 at 10:00; Stop 12/02/16 at 16:45; Status DC Clonazepam (KlonoPIN) 0.5 mg Q12HR PO Last administered on 12/02/16t 09:09; Start 12/01/16 at 14:00; Stop 12/02/16 at 16:45; Status DC A/P Assessment and Plan Partial small bowel obstruction -IMPROVING. -CT scan showing partial small bowel obstruction versus ileus. -Gen. surgery is following and stated continue conservative management. -Patient tolerating diet Avoid narcotics. Severe OA of Left Knee -status post Left Total Knee Arthroplasty, by Doctor Xavier Bucio . -Management as per orthopedic surgery. Paroxysmal atrial fibrillation -Has pacemaker. -on lovenox 30 mg sq BID (on eliquis at home). - resume metoprolol when taking by mouth. -i would recommend d/c lovenox and restart eliquis when okay with Ortho. DANA/Hypertension/CAD s/p CABG/Cardiomyopathy, chronic systolic CHF Mild reduction of Left Ventricular function EF 50%/Morbid/chronic kidney disease stage III. Obesity BMI 40.4 - aspirin not reported on home meds, this will need following up when he is taking PO. - currently compensated. monitor for any fluid overload. -Avoid nephrotoxins. -DVT prophylaxis- Lovenox (resume eliquis when taking PO and cleared by surgery) . Donna Robert MD Dec 02, 2016 20:35
[2016-12-11] MEDS ORDERED: GETGO ROLLING W1 MI1 (14:19)
[2016-12-16] MEDS ORDERED: ROSU10 PO (09:26)
[2016-12-16] MEDS ORDERED: HYDR-3516 PO (09:26)
[2016-12-16] MEDS ORDERED: METO25TA6 PO (09:26)
[2016-12-16] MEDS ORDERED: APIX5TAB PO (09:26)
== END 2016-12-02 16:44 | DRG 470 ==
LOC: HSDI 11-25 06:00 → N06B 11-25 13:05
PROVIDERS: ADMIT Surgery; ATTEND Surgery
PROC: 3E0T3CZ (ICD-10-PCS; 2016-11-25)
PROC: 0SRD0J9 Replacement of Left Knee Joint with Synthetic Substitute, Cemented, Open Approach (ICD-10-PCS; principal; 2016-11-25 08:04)
DX: M17.12 Unilateral primary osteoarthritis, left knee (principal); K56.0 Paralytic ileus; I42.9 Cardiomyopathy, unspecified; Z68.41 Body mass index [BMI] 40.0-44.9, adult; I50.22 Chronic systolic (congestive) heart failure; I48.0 Paroxysmal atrial fibrillation; I13.0 Hypertensive heart and chronic kidney disease with heart failure and stage 1 through stage 4 chronic kidney disease, or unspecified chronic kidney disease; N18.3 Chronic kidney disease, stage 3 (moderate); G51.0 Bell's palsy; K91.89 Other postprocedural complications and disorders of digestive system; N20.0 Calculus of kidney; E66.01 Morbid (severe) obesity due to excess calories; E03.9 Hypothyroidism, unspecified; E78.5 Hyperlipidemia, unspecified; I25.10 Atherosclerotic heart disease of native coronary artery without angina pectoris; G47.33 Obstructive sleep apnea (adult) (pediatric); F43.22 Adjustment disorder with anxiety; G47.00 Insomnia, unspecified; Z95.1 Presence of aortocoronary bypass graft; Z95.0 Presence of cardiac pacemaker; Z86.010 Personal history of colon polyps; Z86.73 Personal history of transient ischemic attack (TIA), and cerebral infarction without residual deficits
CPT/HCPCS: 71010; 73560; 74000; 74177; 80048; 80053; 81001; 83735; 83880; 85014; 85018; 85025; 86850; 86900; 86901; 87086; 94150; C1776; C9113; C9290; J0690; J1100; J1650; J2250; J2270; J2370; J2405; J2710; J2765; J3010; J3370; J7030; J7050; J7120; L1830; Q9963; Q9967

== ENCOUNTER → 2016-11-17 | Outpatient (CLI) | payer MEDICARE, MEDICAID ==
[~2016-11-17] MED LIST: 1-ME1LIQ PO; AMLO10TA2 PO; APIX5 PO; APIX5TAB PO; CIPR500T4 PO; COLA100C3 PO; CPMMACHINE; GETGO ROLLING W1 MI1; HYDR-2768 PO; HYDR-3516 PO; HYDR-3580 PO; HYDR25TA5 PO; KONS520C PO; LISI-360 PO; LISI10TA3 PO; METO25CR PO; METO25TA6 PO; MISC-163; POTA10CA PO; POTA10IN2 PO; ROSU10 PO; STOO100C PO; TEMA30CA PO; WALKER WHEELS/F1 MIS
[2016-11-17 10:07] LABS: AUTOMATED NEUTROPHIL # 2.9 TH/MM3 (1.8-7.7); BASOPHIL % 0.4 % (0.0-2.0); EOSINOPHIL # 0.1 TH/MM3 (0-0.4); EOSINOPHIL % 2.9 % (0.0-4.0); HEMATOCRIT 43.8 % (39.0-51.0); HEMO FLAGS DIFF FINAL; LYMPH % 26.6 % (9.0-44.0); LYMPHOCYTE # 1.3 TH/MM3 (1.0-4.8); MEAN CELL VOLUME 77.1 FL (80.0-100.0); MEAN CORPUSCULAR HGB CONC 32.4 % (32.0-36.0); MONO % 10.3 % (0.0-8.0); NEUT % 59.8 % (16.0-70.0); PLATELET COUNT 144 TH/MM3 (150-450); RED BLOOD COUNT 5.68 MIL/MM3 (4.50-5.90); RED CELL DISTRIBUTION WIDTH 15.1 % (11.6-17.2); WHITE BLOOD COUNT 4.8 TH/MM3 (4.0-11.0)
[2016-11-17 10:11] LABS: BLOOD, URINE TRACE (NEG); GLUCOSE,URINE NEG (NEG); KETONE, URINE NEG (NEG); NITRITE,URINE NEG (NEG); URINE COLOR LIGHT-YELLOW (YELLW/STRAW)
[2016-11-17 10:14] LABS: COMMENT (UR) CULT NOT INDICATED; CULTURE IF INDICATED CULT NOT INDICATED
[2016-11-17 10:27] LABS: APTT (PATIENT) 35.7 SEC (24.3-30.1); INTERNATIONAL NORMALIZED RATIO 1.1 RATIO
[2016-11-17 10:36] LABS: ALKALINE PHOSPHATASE 80 U/L (45-117); ALT (GPT) 26 U/L (12-78); ANION GAP 6 MEQ/L (5-15); AST (GOT) 14 U/L (15-37); BICARBONATE 29.2 MEQ/L (21.0-32.0); BLOOD UREA NITROGEN 36 MG/DL (7-18); CHLORIDE 107 MEQ/L (98-107); GLOMERULAR FILTRATION RATE 52 ML/MIN (>89); GLUCOSE,FASTING 84 MG/DL (74-99); POTASSIUM 4.2 MEQ/L (3.5-5.1); SODIUM (NA) 142 MEQ/L (136-145); TOTAL BILIRUBIN ADULT 0.4 MG/DL (0.2-1.0)
--- NOTE | 2016-11-18 14:59 | EKG ---
Date Performed: 11/17/2016 Time Performed: 08:40:18 PTAGE: 81 years EKG: ELECTRONIC VENTRICULAR PACEMAKER Compared to prior tracing no significant change ABNORMAL R HYTHM ECG PREVIOUS TRACING 05/20/2016 @ 15.40.11 DOCTOR: Gino Sanchez Interpretating Date/Time 11/18/2016 14:56:16
== END ==
LOC: CPRE 08:05
PROVIDERS: ATTEND Surgery
DX: Z01.810 Encounter for preprocedural cardiovascular examination (principal); Z01.812 Encounter for preprocedural laboratory examination; Z79.01 Long term (current) use of anticoagulants
CPT/HCPCS: 36415; 80053; 81001; 85025; 85610; 85730; 93005

== ENCOUNTER 2017-05-23 21:38 | Emergency (ER) | payer MEDICARE, MEDICAID ==
[~2017-05-23] VITALS: Ht 170.2 cm; Wt 105.0 kg
[~2017-05-23 21:38] MED LIST changes: -1-ME1LIQ PO; -AMLO10TA2 PO; -APIX5 PO; +BUME1TAB PO; -CIPR500T4 PO; -COLA100C3 PO; -CPMMACHINE; -GETGO ROLLING W1 MI1; -HYDR-2768 PO; -HYDR-3516 PO; -HYDR-3580 PO; -HYDR25TA5 PO; -KONS520C PO; -LISI-360 PO; -METO25CR PO; -MISC-163; -POTA10CA PO; -POTA10IN2 PO; -STOO100C PO; -TEMA30CA PO; -WALKER WHEELS/F1 MIS
[2017-05-23 21:41] VITALS: BP 154/57; PULSE 81; RESP 16; TEMP 97.9; O2SAT 96
[2017-05-23] MEDS ORDERED: SODIUM CHLORID 0.9% 500 ML INJ 500 ML IV ONE (22:30)
[2017-05-23 23:06] LABS: AUTOMATED NEUTROPHIL # 3.7 TH/MM3 (1.8-7.7); BASOPHIL % 0.5 % (0.0-2.0); EOSINOPHIL # 0.1 TH/MM3 (0-0.4); EOSINOPHIL % 1.4 % (0.0-4.0); HEMATOCRIT 41.4 % (39.0-51.0); HEMO FLAGS DIFF FINAL; LYMPH % 23.7 % (9.0-44.0); LYMPHOCYTE # 1.4 TH/MM3 (1.0-4.8); MEAN CORPUSCULAR HEMOGLOBIN 24.6 PG (27.0-34.0); MEAN CORPUSCULAR HGB CONC 32.4 % (32.0-36.0); MONO % 11.3 % (0.0-8.0); NEUT % 63.1 % (16.0-70.0); PLATELET COUNT 163 TH/MM3 (150-450); RED BLOOD COUNT 5.44 MIL/MM3 (4.50-5.90); RED CELL DISTRIBUTION WIDTH 16.8 % (11.6-17.2); WHITE BLOOD COUNT 5.9 TH/MM3 (4.0-11.0)
[2017-05-23 23:15] LABS: ALKALINE PHOSPHATASE 85 U/L (45-117); ALT (GPT) 18 U/L (12-78); ANION GAP 8 MEQ/L (5-15); AST (GOT) 19 U/L (15-37); BICARBONATE 28.8 MEQ/L (21.0-32.0); BLOOD UREA NITROGEN 51 MG/DL (7-18); CHLORIDE 104 MEQ/L (98-107); GLOMERULAR FILTRATION RATE 30 ML/MIN (>89); POTASSIUM 4.1 MEQ/L (3.5-5.1); SODIUM (NA) 141 MEQ/L (136-145); TOTAL BILIRUBIN ADULT 0.4 MG/DL (0.2-1.0)
[2017-05-23 23:20] VITALS: BP 113/59; PULSE 66; RESP 18; O2SAT 98
--- NOTE | 2017-05-24 00:08 | PD ---
HPI Chief Complaint: Dizziness Time Seen by Provider: 22:08 Travel History International Travel<30 days: No Contact w/Intl Traveler<30days: No Traveled to known affect area: No History of Present Illness HPI An 82-year-old man who presents to the emergency department complaining of lightheadedness and low blood pressure. He has multiple medical problems. 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 When he got home he felt weak and lightheaded. He took his blood pressure and it was 80s over 40s. He came to the emergency department when he arrived his blood pressure returned to normal. He still had some lightheadedness and dizziness but it is mostly improved. States she otherwise has been feeling generally well and healthy. His notes that he is complaining of some dizzy spells intermittently in the recent past. No recent coughs or colds. No bleeding. He is on Eliquis for A. fib. 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 fib, on Eliquis PNEUMOCCOCAL Vaccine (Year): 1 Social History Alcohol Use: No Tobacco Use: No Allergies-Medications (Allergen,Severity, Reaction): Coded Allergies: Fish Containing Products (Unverified Allergy, Severe, 05/23/17) diclofenac (Unverified Allergy, Severe, ANAPHYLAXIS, 05/23/17) furosemide (Unverified Allergy, Severe, ANAPHYLAXIS, 05/23/17) MRI PRECAUTION (Verified Adverse Reaction, Severe, 05/23/17) PT HAS PACER Sulfa (Sulfonamide Antibiotics) (Unverified Adverse Reaction, Severe, HEAD ACHE, 05/23/17) Reported Meds & Prescriptions Reported Meds & Active Scripts Active Metoprolol Succinate ER 24 HR (Metoprolol Succinate) 25 Mg Tab 12.5 Mg PO DAILY@ 11 Crestor (Rosuvastatin Calcium) 10 Mg Tab 10 Mg PO HS Eliquis (Apixaban) 5 Mg Tab 5 Mg PO BID Reported Lisinopril 10 Mg Tab 10 Mg PO DAILY Bumetanide 1 Mg Tab 1 Mg PO DAILY Review of Systems Except as stated in HPI: all other systems reviewed are Neg Physical Exam Narrative GENERAL: Well-appearing 82-year-old man, no acute distress. SKIN: Focused skin assessment warm/dry. HEAD: Atraumatic. Normocephalic. EYES: Pupils equal and round. No scleral icterus. No injection or drainage. ENT: No nasal bleeding or discharge. Mucous membranes pink and moist. NECK: Trachea midline. No JVD. CARDIOVASCULAR: Regular rate and rhythm. No murmur appreciated. RESPIRATORY: No accessory muscle use. Clear to auscultation. Breath sounds equal bilaterally. GASTROINTESTINAL: Abdomen soft, non-tender, nondistended. Hepatic and splenic margins not palpable. MUSCULOSKELETAL: No obvious deformities. Mild pitting edema both ankles. NEUROLOGICAL: Awake and alert. No obvious cranial nerve deficits. Motor grossly within normal limits. Normal speech. PSYCHIATRIC: Appropriate mood and affect; insight and judgment normal. Data Data Last Documented VS Vital Signs Date Time Temp Pulse Resp B/P (MAP) Pulse Ox O2 Delivery O2 Flow Rate FiO2 05/23/17 23:20 66 18 113/59 (77) 98 Room Air 05/23/17 21:41 97.9 Orders Orders Complete Blood Count With Diff (05/23/17 22:30) Comprehensive Metabolic Panel (05/23/17 22:30) Iv Access Insert/Monitor (05/23/17 22:30) Urinalysis - C+S If Indicated (05/23/17 22:30) Electrocardiogram (05/23/17 ) Sodium Chlorid 0.9% 500 Ml Inj (Ns 500 M (05/23/17 22:30) Labs Laboratory Tests Test 05/23/17 22:40 05/23/17 23:35 White Blood Count 5.9 TH/MM3 Red Blood Count 5.44 MIL/MM3 Hemoglobin 13.4 GM/DL Hematocrit 41.4 % Mean Corpuscular Volume 76.0 FL Mean Corpuscular Hemoglobin 24.6 PG Mean Corpuscular Hemoglobin Concent 32.4 % Red Cell Distribution Width 16.8 % Platelet Count 163 TH/MM3 Mean Platelet Volume 8.3 FL Neutrophils (%) (Auto) 63.1 % Lymphocytes (%) (Auto) 23.7 % Monocytes (%) (Auto) 11.3 % Eosinophils (%) (Auto) 1.4 % Basophils (%) (Auto) 0.5 % Neutrophils # (Auto) 3.7 TH/MM3 Lymphocytes # (Auto) 1.4 TH/MM3 Monocytes # (Auto) 0.7 TH/MM3 Eosinophils # (Auto) 0.1 TH/MM3 Basophils # (Auto) 0.0 TH/MM3 CBC Comment DIFF FINAL Differential Comment Blood Urea Nitrogen 51 MG/DL Creatinine 2.13 MG/DL Random Glucose 111 MG/DL Total Protein 7.0 GM/DL Albumin 3.5 GM/DL Calcium Level 8.5 MG/DL Alkaline Phosphatase 85 U/L Aspartate Amino Transf (AST/SGOT) 19 U/L Alanine Aminotransferase (ALT/SGPT) 18 U/L Total Bilirubin 0.4 MG/DL Sodium Level 141 MEQ/L Potassium Level 4.1 MEQ/L Chloride Level 104 MEQ/L Carbon Dioxide Level 28.8 MEQ/L Anion Gap 8 MEQ/L Estimat Glomerular Filtration Rate 30 ML/MIN Urine Color YELLOW Urine Turbidity CLEAR Urine pH 5.0 Urine Specific [place] 1.015 Urine Protein NEG mg/dL Urine Glucose (UA) NEG mg/dL Urine Ketones NEG mg/dL Urine Occult Blood NEG Urine Nitrite NEG Urine Bilirubin NEG Urine Urobilinogen LESS THAN 2.0 MG/DL Urine Leukocyte Esterase MOD Urine RBC 1 /hpf Urine WBC 4 /hpf Urine Squamous Epithelial Cells <1 /hpf Urine Bacteria RARE /hpf Urine Hyaline Casts 10 /lpf Urine Mucus FEW /lpf Microscopic Urinalysis Comment CULT NOT INDICATED MDM Medical Decision Making Medical Screen Exam Complete: Yes Emergency Medical Condition: Yes Interpretation(s) My review of EKG, AV sequential pacing, rate of 67, no definite evidence of acute ischemia. LABS: CBC unremarkable. CMP remarkable for elevated BUN and creatinine UA unremarkable. 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 Suspect some dehydration. He looks well. His blood pressures improved now. We'll check for anemia, electrolyte abnormalities, renal injury, urinary infection. Likely discharge for outpatient follow-up. Diagnosis Primary Impression: Lightheadedness Additional Instructions: Continue current medications. Follow-up with her primary doctor this week if you're not feeling completely well. Return to the emergency department for any new or worsening symptoms. Med/Other Pt SpecificInfo: No Change to Meds Disposition: 01 DISCHARGE HOME Condition: Stable Herve Allred MD May 24, 2017 00:08
[2017-05-24 00:12] LABS: BACTERIA, URINE RARE /hpf; BLOOD, URINE NEG (NEG); GLUCOSE,URINE NEG (NEG); HYALINE CAST, URINE 10 /lpf (RARE); KETONE, URINE NEG (NEG); MUCUS URINE FEW /lpf (OCC); NITRITE,URINE NEG (NEG); SQUAMOUS EPITHELIAL CELL URINE <1 /hpf (0-5); URINE COLOR YELLOW (YELLW/STRAW)
[2017-05-24 00:13] LABS: COMMENT (UR) CULT NOT INDICATED; CULTURE IF INDICATED CULT NOT INDICATED
--- NOTE | 2017-05-24 12:48 | EKG ---
Date Performed: 05/23/2017 Time Performed: 22:48:54 PTAGE: 82 years EKG: ELECTRONIC ATRIAL PACEMAKER ELECTRONIC VENTRICULAR PACEMAKER ABNORMAL RHYTHM ECG PREVIOUS TRACING : 11/17/2016 08.40 No significant change from previous tracing noted. DOCTOR: Grant Lawson Interpretating Date/Time 05/24/2017 12:47:44
== END 2017-05-24 01:04 | disposition home or self-care (01) ==
LOC: NEPE 21:38
DX: R42 Dizziness and giddiness (principal); R53.1 Weakness; R94.31 Abnormal electrocardiogram [ECG] [EKG]; I25.10 Atherosclerotic heart disease of native coronary artery without angina pectoris; M19.90 Unspecified osteoarthritis, unspecified site; E78.5 Hyperlipidemia, unspecified; I10 Essential (primary) hypertension; G47.33 Obstructive sleep apnea (adult) (pediatric); I48.91 Unspecified atrial fibrillation
CPT/HCPCS: 80053; 81001; 85025; 93005; 96360; 99284; J7040

== ENCOUNTER 2017-10-13 19:55 | Observation (INO) | payer MEDICARE, MEDICAID ==
[~2017-10-13] VITALS: Ht 167.6 cm; Wt 110.0 kg
[~2017-10-13 19:55] MED LIST changes: +METO1TAB42 PO; -METO25TA6 PO; +TEMA7.5C PO
[2017-10-13 20:00] VITALS: BP 177/83; PULSE 91; RESP 20; TEMP 97.9; O2SAT 97
[2017-10-13] MEDS ORDERED: BUSP5TAB PO (20:05)
[2017-10-13 20:08] VITALS: BP 177/83; PULSE 93; RESP 18; O2SAT 98
[2017-10-13] MEDS ORDERED: POTA540T PO (20:08)
[2017-10-13] MEDS ORDERED: AMLO5TAB2 PO (20:08)
[2017-10-13 20:11] VITALS: O2SAT 97
[2017-10-13 20:25] LABS: AUTOMATED NEUTROPHIL # 3.7 TH/MM3 (1.8-7.7); BASOPHIL % 0.5 % (0.0-2.0); EOSINOPHIL # 0.1 TH/MM3 (0-0.4); EOSINOPHIL % 1.6 % (0.0-4.0); HEMATOCRIT 43.1 % (39.0-51.0); HEMOGLOBIN 14.2 GM/DL (13.0-17.0); LYMPH % 19.1 % (9.0-44.0); MEAN CELL VOLUME 74.7 FL (80.0-100.0); MEAN CORPUSCULAR HEMOGLOBIN 24.5 PG (27.0-34.0); MEAN CORPUSCULAR HGB CONC 32.9 % (32.0-36.0); MEAN PLATELET VOLUME 8.1 FL (7.0-11.0); MONO % 10.4 % (0.0-8.0); MONOCYTE # 0.6 TH/MM3 (0-0.9); NEUT % 68.4 % (16.0-70.0); PLATELET COUNT 146 TH/MM3 (150-450); RED BLOOD COUNT 5.77 MIL/MM3 (4.50-5.90); RED CELL DISTRIBUTION WIDTH 16.2 % (11.6-17.2); WHITE BLOOD COUNT 5.5 TH/MM3 (4.0-11.0)
--- NOTE | 2017-10-13 20:27 | PD ---
HPI Chief Complaint: Cardiac Complaint Time Seen by Provider: 20:06 Travel History International Travel<30 days: No Contact w/Intl Traveler<30days: No Traveled to known affect area: No History of Present Illness HPI 82-year-old male complains of chest pain. Patient states that he started having chest pain around 4:30 this afternoon. Patient states the pain and pressure pain chest pain is aching pain started on the left-sided chest with radiation to the left shoulder. Patient denies palpitation nausea diaphoresis. Patient denies any coughing congestion fever chills. Patient has history of CAD status post CABG 2011. Patient also has history of atrial fibrillation and on Eliquis. Patient also has history of pacemaker placement for symptomatic bradycardia. Patient has history hypertension, hyperlipidemia, status post CVA , osteoarthritis, chronic kidney disease. PFSH Past Medical History Hx Anticoagulant Therapy: Yes (eliquis ) Arthritis: Yes Asthma: No Atrial Fibrillation: Yes Autoimmune Disease: No Blood Disorders: No Anxiety: No Depression: No Heart Rhythm Problems: Yes (HX of A fib) Cancer: No Cardiac Catheterization: Yes Cardiovascular Problems: Yes (CABG X4 PACEMAKER) High Cholesterol: Yes Chemotherapy: No Chest Pain: Yes (on occaison) Congestive Heart Failure: Yes COPD: No Cerebrovascular Accident: No Coronary Artery Disease: Yes Diabetes: No Diminished Hearing: No Endocrine: No Gastrointestinal Disorders: Yes (ILEUS) GERD: No Glaucoma: No Genitourinary: Yes (KIDNEY STONES) Headaches: No Hepatitis: No Hiatal Hernia: No Hypertension: Yes Immune Disorder: No Implanted Vascular Access Dvce: Yes (PACER) Kidney Stones: Yes Medical other: No Musculoskeletal: Yes (arthritis) Neurologic: Yes (tia 2016; 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) Psychiatric: No Reproductive: No Respiratory: Yes (CHF; C-PAP) Immunizations Current: Yes Migraines: No Radiation Therapy: No Renal Failure: No Seizures: No Sleep Apnea: Yes (C-PAP AT NIGHT) Thyroid Disease: No Ulcer: No PNEUMOCCOCAL Vaccine (Year): 1 Past Surgical History Abdominal Surgery: No AICD: No Arteriovenous Shunt: No Body Medical Devices: STERNAL WIRES,CABG X4 PACER Cardiac Surgery: Yes (CABG 4 VESSEL PACER ) Coronary Artery Bypass Graft: Yes Ear Surgery: No Endocrine Surgery: No Eye Surgery: No Genitourinary Surgery: Yes (lithotripsy) Gynecologic Surgery: No Insulin Pump: No Joint Replacement: No Neurologic Surgery: No Oral Surgery: No Pacemaker: Yes (BIOTRONIC) Thoracic Surgery: No Tonsillectomy: Yes Other Surgery: Yes (LEFT ARM) Social History Alcohol Use: No Tobacco Use: No Substance Use: No Allergies-Medications (Allergen,Severity, Reaction): Coded Allergies: Fish Containing Products (Unverified Allergy, Severe, 10/13/17) diclofenac (Unverified Allergy, Severe, ANAPHYLAXIS, 10/13/17) furosemide (Unverified Allergy, Severe, ANAPHYLAXIS, 10/13/17) MRI PRECAUTION (Verified Adverse Reaction, Severe, 10/13/17) PT HAS PACER Sulfa (Sulfonamide Antibiotics) (Unverified Adverse Reaction, Severe, HEAD ACHE, 10/13/17) Reported Meds & Prescriptions Reported Meds & Active Scripts Active Temazepam 7.5 Mg Cap 7.5 Mg PO HS PRN Metoprolol Succinate ER 24 HR (Metoprolol Succinate) 25 Mg Tab 12.5 Mg PO DAILY@ 11 Crestor (Rosuvastatin Calcium) 10 Mg Tab 10 Mg PO HS Eliquis (Apixaban) 5 Mg Tab 5 Mg PO BID Reported Potassium Citrate ER (Potassium Citrate) 5 Meq (540 Mg) Tablet.er 10 Mg PO DAILY Amlodipine (Amlodipine Besylate) 5 Mg Tab 5 Mg PO DAILY Buspirone (Buspirone HCl) 5 Mg Tab 2.5 Mg PO DAILY Lisinopril 10 Mg Tab 10 Mg PO DAILY Bumetanide 1 Mg Tab 1 Mg PO DAILY Review of Systems General / Constitutional: No: Fever Eyes: No: Visual changes HENT: No: Headaches Cardiovascular: Positive: Chest Pain or Discomfort Respiratory: No: Shortness of Breath Gastrointestinal: No: Abdominal Pain Genitourinary: No: Dysuria Musculoskeletal: No: Pain Skin: No Rash Neurologic: No: Weakness Psychiatric: No: Depression Endocrine: No: Polydipsia Hematologic/Lymphatic: No: Easy Bruising Physical Exam Narrative GENERAL: Well-nourished, well-developed patient. SKIN: Focused skin assessment warm/dry. HEAD: Normocephalic. EYES: No scleral icterus. No injection or drainage. NECK: Supple, trachea midline. No JVD or lymphadenopathy. CARDIOVASCULAR: Regular rate and rhythm without murmurs, gallops, or rubs. RESPIRATORY: Breath sounds equal bilaterally. No accessory muscle use. GASTROINTESTINAL: Abdomen soft, non-tender, nondistended. MUSCULOSKELETAL: No cyanosis, or edema. BACK: Nontender without obvious deformity. No CVA tenderness. Neurologic exam normal. Data Data Last Documented VS Vital Signs Date Time Temp Pulse Resp B/P (MAP) Pulse Ox O2 Delivery O2 Flow Rate FiO2 10/13/17 20:11 97 Nasal Cannula 10/13/17 20:10 84 18 2.00 10/13/17 20:08 177/83 (114) 10/13/17 20:00 97.9 Orders Orders Electrocardiogram (10/13/17 20:06) Complete Blood Count With Diff (10/13/17 20:06) Comprehensive Metabolic Panel (10/13/17 20:06) Creatine Kinase (Cpk) (10/13/17 20:06) Troponin I (10/13/17 20:06) B-Type Natriuretic Peptide (10/13/17 20:06) Prothrombin Time / Inr (Pt) (10/13/17 20:06) Act Partial Throm Time (Ptt) (10/13/17 20:06) Thyroid Stimulating Hormone (10/13/17 20:06) Chest, Single Ap (10/13/17 20:06) Iv Access Insert/Monitor (10/13/17 20:06) Ecg Monitoring (10/13/17 20:06) Oximetry (10/13/17 20:06) Sodium Chlor 0.9% 1000 Ml Inj (Ns 1000 M (10/13/17 20:30) Nitroglycerin 2% Oint (Nitroglycerin 2% (10/13/17 20:30) Labs Laboratory Tests Test 10/13/17 20:11 White Blood Count 5.5 TH/MM3 Red Blood Count 5.77 MIL/MM3 Hemoglobin 14.2 GM/DL Hematocrit 43.1 % Mean Corpuscular Volume 74.7 FL Mean Corpuscular Hemoglobin 24.5 PG Mean Corpuscular Hemoglobin Concent 32.9 % Red Cell Distribution Width 16.2 % Platelet Count 146 TH/MM3 Mean Platelet Volume 8.1 FL Neutrophils (%) (Auto) 68.4 % Lymphocytes (%) (Auto) 19.1 % Monocytes (%) (Auto) 10.4 % Eosinophils (%) (Auto) 1.6 % Basophils (%) (Auto) 0.5 % Neutrophils # (Auto) 3.7 TH/MM3 Lymphocytes # (Auto) 1.0 TH/MM3 Monocytes # (Auto) 0.6 TH/MM3 Eosinophils # (Auto) 0.1 TH/MM3 Basophils # (Auto) 0.0 TH/MM3 CBC Comment DIFF FINAL Differential Comment Prothrombin Time 11.1 SEC Prothromb Time International Ratio 1.1 RATIO Activated Partial Thromboplast Time 30.3 SEC Blood Urea Nitrogen 46 MG/DL Creatinine 1.49 MG/DL Random Glucose 101 MG/DL Total Protein 7.6 GM/DL Albumin 3.9 GM/DL Calcium Level 9.3 MG/DL Alkaline Phosphatase 88 U/L Aspartate Amino Transf (AST/SGOT) 23 U/L Alanine Aminotransferase (ALT/SGPT) 14 U/L Total Bilirubin 0.4 MG/DL Sodium Level 137 MEQ/L Potassium Level 4.2 MEQ/L Chloride Level 104 MEQ/L Carbon Dioxide Level 28.3 MEQ/L Anion Gap 5 MEQ/L Estimat Glomerular Filtration Rate 45 ML/MIN Total Creatine Kinase 137 U/L Troponin I 0.02 NG/ML B-Type Natriuretic Peptide 89 PG/ML Thyroid Stimulating Hormone 3rd Gen 0.635 uIU/ML MDM Medical Decision Making Medical Screen Exam Complete: Yes Emergency Medical Condition: Yes Interpretation(s) EKG shows ventricular pacer rhythm. 21:05 PM. Last Impressions Chest X-Ray 10/13/172005 Signed Impressions: Service Date/Time: Friday, October 13, 2017 20:10 - CONCLUSION: No acute disease. No significant change has occurred. Adin Purcell MD 21:05 PM. CBC within normal limit. CMP within normal limit. Cardiac enzymes are normal. Differential Diagnosis Differential diagnosis including angina, ND, PE, pneumothorax. Narrative Course 82-year-old male with chest pain. History of CAD status post CABG, history a defibrillation on Eliquis. Cedric Segura MD Oct 13, 2017 20:27
[2017-10-13] MEDS ORDERED: NITROGLYCERIN 2% OINT 1 GM PACKET TOPICAL ONE (20:30)
--- NOTE | 2017-10-13 20:32 | RADRPT ---
EXAM DATE/TIME: 10/13/2017 20:10 [facility] COMPARISON: CHEST SINGLE AP, December 15, 2016, 14:10. INDICATIONS : Chest pain and dizziness. MEDICAL HISTORY : Myocardial infarction. Congestive heart failure. Hypercholesterolemia. CAD. Hyperlipidemia. A-Fib. Hy pertension. Sleep apnea. Kidney stones. Measles. Gallstones. SURGICAL HISTORY : Tonsillectomy. CABG Total knee replacement, left. Cardiac cath.Pacemaker. Colectomy. Lithotripsy. ENCOUNTER: Initial ACUITY: 1 day PAIN SCORE: 3/10 LOCATION: Bilateral chest FINDINGS: A single view of the chest demonstrates the lungs to be symmetrically aerated without evidence of mas s, infiltrate or effusion. There is stable eventration of the right hemidiaphragm. The cardiomediast inal contours are unremarkable. There is evidence of previous cardiothoracic surgery. Osseous struct ures are intact. There is a pacemaker overlying the left chest. CONCLUSION: No acute disease. No significant change has occurred. Adin Purcell MD on October 13, 2017 at 20:30 Board Certified Radiologist. This report was verified electronically.
[2017-10-13 20:45] LABS: INTERNATIONAL NORMALIZED RATIO 1.1 RATIO; PROTHROMBIN TIME - PATIENT 11.1 SEC (9.8-11.6)
[2017-10-13 20:50] LABS: ALBUMIN 3.9 GM/DL (3.4-5.0); AST (GOT) 23 U/L (15-37); BICARBONATE 28.3 MEQ/L (21.0-32.0); BLOOD UREA NITROGEN 46 MG/DL (7-18); CALCIUM 9.3 MG/DL (8.5-10.1); CHLORIDE 104 MEQ/L (98-107); CREATININE 1.49 MG/DL (0.60-1.30); GLOMERULAR FILTRATION RATE 45 ML/MIN (>89); GLUCOSE,RANDOM 101 MG/DL (74-106); SODIUM (NA) 137 MEQ/L (136-145)
[2017-10-13 20:51] LABS: ALT (GPT) 14 U/L (12-78)
[2017-10-13 21:00] LABS: ALKALINE PHOSPHATASE 88 U/L (45-117); TOTAL BILIRUBIN ADULT 0.4 MG/DL (0.2-1.0); TOTAL PROTEIN 7.6 GM/DL (6.4-8.2); TROPONIN I 0.02 NG/ML (0.02-0.05)
[2017-10-13] MEDS ORDERED: NITROGLYCERIN 0.4 MG SL 25 TABS/BTL SL PRN (21:15)
[2017-10-13] MEDS ORDERED: ACETAMINOPHEN 500 MG CPLT PO PRN (21:15)
[2017-10-13] MEDS ORDERED: ONDANSETRON HCL 4 MG/2 ML VIAL IV PUSH PRN (21:15)
[2017-10-13] MEDS ORDERED: SODIUM CHLORIDE 0.9% FLUSH 10 ML FLUSH IV FLUSH PRN (21:15)
[2017-10-13 21:35] VITALS: BP 166/64; PULSE 73; RESP 16; O2SAT 98
[2017-10-13] MEDS: SODIUM CHLOR 0.9% 1000 ML INJ 1,000 ML IV SCH (21:35)
[2017-10-14] VITALS (7 sets, daily range): BP systolic 113–191; BP diastolic 58–82; PULSE 80–90; RESP 18; TEMP 97.5–98.2; O2SAT 93–96
[2017-10-14 01:57] LABS: TROPONIN I 0.03 NG/ML (0.02-0.05)
[2017-10-14 05:25] LABS: TROPONIN I 0.03 NG/ML (0.02-0.05)
[2017-10-14] MEDS: SODIUM CHLOR 0.9% 1000 ML INJ 1,000 ML IV SCH (06:30)
[2017-10-14] MEDS ORDERED: BUMETANIDE 1 MG TAB PO SCH (09:00)
[2017-10-14] MEDS ORDERED: SODIUM CHLORIDE 0.9% FLUSH 10 ML FLUSH IV FLUSH SCH (09:00)
[2017-10-14] MEDS ORDERED: POTASSIUM CITRATE PO SCH (09:00)
[2017-10-14] MEDS ORDERED: REGADENOSON INJ 0.4 MG/5 ML SYR ONE (10:49)
--- NOTE | 2017-10-14 11:07 | HHI.HP ---
HPI Primary Care Physician Unknown Chief Complaint Chest pain History of Present Illness This is an 82-year-old male with history of CAD status post four-vessel bypass in 2011 that presents to ED with a complaint of a dull ache in left side of his chest that began yesterday evening while at a meeting. The more upset he became at this meeting that more discomfort he developed. Denies shortness of breath, nausea, or diaphoresis. Does not feel similar to when eating bypass. EVAC was called, he was given sublingual nitroglycerin which did not change his symptoms. Discomfort lasted about [address] Lopez. Last saw him a couple months ago. Last stress test was 7 or 8 months ago and he believes that it was okay. Currently denies chest discomfort. Review of Systems General: Patient denies fevers, chills recent, and recent travel HEENT: Patient denies headache, sore throat, difficulty swallowing. Cardiovascular: Has the chest discomfort as mentioned above. Denies sensation of heart beating rapidly or irregularly. No syncope. Respiratory: Denies shortness of breath or inspirational chest discomfort. Denies coughing wheezing or hemoptysis. GI: Patient denies nausea, vomiting, diarrhea, abdominal pain, bloody stools. Musculoskeletal: Patient denies joint pain or edema. Denies calf pain or edema. Neurovascular: Patient denies numbness, tingling, weakness in extremities. Denies headache. Endocrine: Denies polyuria and polydipsia. Hematologic: Denies easy bruising. Skin: Denies rash or itching. Past Family Social History Allergies: Coded Allergies: Fish Containing Products (Unverified Allergy, Severe, 10/13/17) diclofenac (Unverified Allergy, Severe, ANAPHYLAXIS, 10/13/17) furosemide (Unverified Allergy, Severe, ANAPHYLAXIS, 10/13/17) MRI PRECAUTION (Verified Adverse Reaction, Severe, 10/13/17) PT HAS PACER Sulfa (Sulfonamide Antibiotics) (Unverified Adverse Reaction, Severe, HEAD ACHE, 10/13/17) Past Medical History CAD with 4 vessel bypass 2011. Paroxysmal atrial fibrillation and he is on Eliquis. Hypertension, hyperlipidemia, dual-chamber pacemaker, renal insufficiency. Denies diabetes. Past Surgical History Four-vessel bypass. Pacemaker. Reported Medications Reported Meds & Active Scripts Active Temazepam 7.5 Mg Cap 7.5 Mg PO HS PRN Metoprolol Succinate ER 24 HR (Metoprolol Succinate) 25 Mg Tab 12.5 Mg PO DAILY@ 11 Crestor (Rosuvastatin Calcium) 10 Mg Tab 10 Mg PO HS Eliquis (Apixaban) 5 Mg Tab 5 Mg PO BID Reported Potassium Citrate ER (Potassium Citrate) 5 Meq (540 Mg) Tablet.er 10 Mg PO DAILY Amlodipine (Amlodipine Besylate) 5 Mg Tab 5 Mg PO DAILY Buspirone (Buspirone HCl) 5 Mg Tab 2.5 Mg PO DAILY Lisinopril 10 Mg Tab 10 Mg PO DAILY Bumetanide 1 Mg Tab 1 Mg PO DAILY Active Ordered Medications Current Medications Medications (Trade) Dose Ordered Sig/Salvador Route Start Time Stop Time Status Last Admin Sodium Chloride 1,000 ml @ 100 mls/hr Q10H IV 10/13/17 20:30 10/13/17 21:35 (NS Flush) 2 ml UNSCH PRN IV FLUSH 10/13/17 21:15 (NS Flush) 2 ml BID IV FLUSH 10/14/17 09:00 (Tylenol) 500 mg Q4H PRN PO 10/13/17 21:15 (Zofran Inj) 4 mg Q6H PRN IV PUSH 10/13/17 21:15 (Nitrostat Sl) 0.4 mg Q5M PRN SL 10/13/17 21:15 (Norvasc) 5 mg DAILY PO 10/14/17 09:00 UNV (Bumetanide) 1 mg DAILY PO 10/14/17 09:00 UNV (Buspar) 2.5 mg DAILY PO 10/14/17 09:00 UNV (Prinivil) 10 mg DAILY PO 10/14/17 09:00 UNV (Toprol Xl) 12.5 mg DAILY@11 PO 10/14/17 11:00 UNV Non-Formulary Medication 10 mg DAILY PO 10/14/17 09:00 UNV Non-Formulary Medication 10 mg HS PO 10/14/17 21:00 UNV Family History There is family history of CAD. Social History Non-smoker. Denies alcohol or illicit drug use. Physical Exam Vital Signs Vital Signs Date Time Temp Pulse Resp B/P (MAP) Pulse Ox O2 Delivery O2 Flow Rate FiO2 10/14/17 07:34 97.5 81 18 123/58 (79) 93 2/7/18 07:33 94 21 10/14/17 07:22 81 10/14/17 06:24 80 10/14/17 06:17 21 10/14/17 04:22 97.8 82 18 131/60 (83) 95 10/14/17 00:04 97.8 80 18 113/58 (76) 95 10/13/17 22:26 10/13/17 21:35 73 16 166/64 (98) 98 Room Air 2.00 10/13/17 20:11 97 Nasal Cannula 10/13/17 20:10 84 18 98 Nasal Cannula 2.00 10/13/17 20:08 93 18 177/83 (114) 98 Nasal Cannula 2.00 10/13/17 20:00 97.9 91 20 177/83 (114) 97 Physical Exam GENERAL: This is a well-nourished, well-developed patient, in no apparent distress. Patient speaks in clear complete sentences. Patient is pleasant. HEENT: Head is atraumatic and normocephalic. Neck is supple without lymphadenopathy and trachea is midline. No JVD or carotid bruits. CARDIOVASCULAR: Regular rate and rhythm without murmurs, gallops, or rubs. RESPIRATORY: Clear to auscultation. Breath sounds equal bilaterally. No wheezes , rales, or rhonchi. Chest wall is nontender. Well-healed scar over the sternum from prior sternotomy. No tenderness at the pacemaker site. No use of accessory muscles. GASTROINTESTINAL: Abdomen is nontender, nondistended. Abdomen soft. No obvious pulsatile mass or bruit. No CVA tenderness. Strong femoral pulses bilaterally. Normal bowel sounds in all quadrants. MUSCULOSKELETAL: Patient is moving upper and lower extremities freely. No calf tenderness or edema, no Homans sign. Strong pulses in upper and lower extremities. NEUROLOGICAL: Patient is alert and oriented. Cranial nerves 2-12 are grossly intact. No focal deficits and speech is clear. SKIN: No rash and turgor is normal. Laboratory Laboratory Tests Test 10/13/17 20:11 10/14/17 00:50 10/14/17 04:32 White Blood Count 5.5 Red Blood Count 5.77 Hemoglobin 14.2 Hematocrit 43.1 Mean Corpuscular Volume 74.7 Mean Corpuscular Hemoglobin 24.5 Mean Corpuscular Hemoglobin Concent 32.9 Red Cell Distribution Width 16.2 Platelet Count 146 Mean Platelet Volume 8.1 Neutrophils (%) (Auto) 68.4 Lymphocytes (%) (Auto) 19.1 Monocytes (%) (Auto) 10.4 Eosinophils (%) (Auto) 1.6 Basophils (%) (Auto) 0.5 Neutrophils # (Auto) 3.7 Lymphocytes # (Auto) 1.0 Monocytes # (Auto) 0.6 Eosinophils # (Auto) 0.1 Basophils # (Auto) 0.0 CBC Comment DIFF FINAL Differential Comment Prothrombin Time 11.1 Prothromb Time International Ratio 1.1 Activated Partial Thromboplast Time 30.3 Blood Urea Nitrogen 46 Creatinine 1.49 Random Glucose 101 Total Protein 7.6 Albumin 3.9 Calcium Level 9.3 Alkaline Phosphatase 88 Aspartate Amino Transf (AST/SGOT) 23 Alanine Aminotransferase (ALT/SGPT) 14 Total Bilirubin 0.4 Sodium Level 137 Potassium Level 4.2 Chloride Level 104 Carbon Dioxide Level 28.3 Anion Gap 5 Estimat Glomerular Filtration Rate 45 Total Creatine Kinase 137 151 141 Troponin I 0.02 0.03 0.03 B-Type Natriuretic Peptide 89 Thyroid Stimulating Hormone 3rd Gen 0.635 Creatine Kinase MB 2.1 1.8 Result Diagram: 10/13/17201010/13/172010 Imaging Last 48 hours Impressions Chest X-Ray 10/13/172005 Signed Impressions: Service Date/Time: Friday, October 13, 2017 20:10 - CONCLUSION: No acute disease. No significant change has occurred. Adin Purcell MD Course EKGs are paced. Caprini VTE Risk Assessment Caprini VTE Risk Assessment: Mod/High Risk (score >= 2) Caprini Risk Assessment Model Point Value = 1 Point Value = 2 Point Value = 3 Point Value = 5 Age 41-60 Minor surgery BMI > 25 kg/m2 Swollen legs Varicose veins or History of unexplained or recurrent spontaneous Oral contraceptives or hormone replacement Sepsis (< 1 month) Serious lung disease, including pneumonia (< 1 month) Abnormal pulmonary function Acute myocardial infarction Congestive heart failure (< 1 month) History of inflammatory bowel disease Medical patient at bed rest Age 61-74 Arthroscopic surgery Major open surgery (> 45 min) Laparoscopic surgery (> 45 min) Malignancy Confined to bed (> 72 hours) Immobilizing plaster cast Central venous access Age >= 75 History of VTE Family history of VTE Factor V Leiden Prothrombin [id number] Lupus anticoagulant Anticardiolipin antibodies Elevated serum homocysteine Heparin-induced thrombocytopenia Other congenital or acquired thrombophilia Stroke (< 1 month) Elective arthroplasty Hip, pelvis, or leg fracture Acute spinal cord injury (< 1 month) Prophylaxis Regimen Total Risk Factor Score Risk Level Prophylaxis Regimen 0-1 Low Early ambulation 2 Moderate Order ONE of the following: *Sequential Compression Device (SCD) *Heparin 5000 units SQ BID 3-4 Higher Order ONE of the following medications: *Heparin 5000 units SQ TID *Enoxaparin/Lovenox 40 mg SQ daily (WT < 150 kg, CrCl > 30 mL/min) *Enoxaparin/Lovenox 30 mg SQ daily (WT < 150 kg, CrCl > 10-29 mL/min) *Enoxaparin/Lovenox 30 mg SQ BID (WT < 150 kg, CrCl > 30 mL/min) AND/OR *Sequential Compression Device (SCD) 5 or more Highest Order ONE of the following medications: *Heparin 5000 units SQ TID (Preferred with Epidurals) *Enoxaparin/Lovenox 40 mg SQ daily (WT < 150 kg, CrCl > 30 mL/min) *Enoxaparin/Lovenox 30 mg SQ daily (WT < 150 kg, CrCl > 10-29 mL/min) *Enoxaparin/Lovenox 30 mg SQ BID (WT < 150 kg, CrCl > 30 mL/min) AND *Sequential Compression Device (SCD) Assessment and Plan Assessment and Plan * Chest pain: Patient has had serial cardiac enzymes and EKGs were rolling up purposes. He was seen by Dr. Dano Coreas of cardiology in the chest pain center and will undergo a Lexiscan. He will be discharged home if Lexiscan is nonischemic with instruction to follow back with his [facility] plans staff officer as well as PCP. Return to ED for interval issues. * CAD: Patient has history of CAD with bypass. Will reevaluate with stress test. Patient to resume medication and follow-up with PCP. * Paroxysmal atrial fibrillation: Continue medication. * Hypertension: Continue current medication. * Hyperlipidemia: Continue current medication. * Renal insufficiency: Patient to follow-up with PCP. Patient is stable at this time. He is agreeable to this plan. Toby Ellis Oct 14, 2017 11:07
[2017-10-14] MEDS ORDERED: METOPROLOL SUCCINATE 25 MG EXTENDED RELEASE TAB PO SCH (12:30)
[2017-10-14] MEDS ORDERED: LISINOPRIL 10 MG TAB PO SCH (12:30)
[2017-10-14] MEDS ORDERED: busPIRone HCL 5 MG TAB PO SCH (12:30)
[2017-10-14] MEDS ORDERED: amLODIPine BESYLATE 5 MG TAB PO SCH (12:30)
--- NOTE | 2017-10-14 12:42 | RADRPT ---
EXAM DATE/TIME: 10/14/2017 10:37 [facility] COMPARISON: No previous studies available for comparison. INDICATIONS : Substernal chest pain radiating to left arm. Angina. Coronary artery disease. DOSE: 34.9 mCi Tc99m Myoview at stress. 11.0 mCi Tc99m Myoview at rest. 0.4 mg Lexiscan STRESS SYMPTOMS: Dizzy. EJECTION FRACTION: 55% MEDICAL HISTORY : Hypertension. Congestive heart failure. Myocardial infarction. Atrial fibrillation. SURGICAL HISTORY : Pacemaker. CABG ENCOUNTER: Initial ACUITY: 2 days PAIN SCALE: 5/10 LOCATION: Substernal chest TECHNIQUE: The patient underwent pharmacologic stress with infusion of prescribed dose. Continuous ECG tracing was monitored during stress. Gated SPECT imaging was performed after stress and conventional SPECT i maging was performed at rest. The examination was performed on a SPECT/CT scanner, both attenuation and non-corrected datasets were reviewed. FINDINGS: DISTRIBUTION: The maximum perfused segment at stress is in the anteroseptal wall. PERFUSION STUDY: There is moderately diminished relative perfusion involving the inferior wall and cardiac apex. No ev idence of redistribution. GATED STUDY: There is intact wall motion and thickening without hypokinetic or dyskinetic segments. CONCLUSION: Small sized moderate severity fixed inferoapical perfusion abnormality. RISK CATEGORY: Low (<1% Annual Mortality Rate) Giovani Baldwin MD on October 14, 2017 at 12:11 Board Certified Radiologist. This report was verified electronically.
[2017-10-14] MEDS ORDERED: APIXABAN 5 MG TABLET PO SCH (13:00)
--- NOTE | 2017-10-14 13:04 | HHI.DCPOC ---
Discharge Care Plan Diagnosis: (1) Chest pain (2) CAD (coronary artery disease) (3) S/P CABG x 4 (4) Renal insufficiency (5) Paroxysmal A-fib (6) Dyslipidemia (7) HTN (hypertension) (8) Pacemaker Goals to Promote Your Health * To prevent worsening of your condition and complications * To maintain your health at the optimal level Directions to Meet Your Goals Take your medications as prescribed Follow your dietary instruction Follow activity as directed Keep your appointments as scheduled Take your immunizations and boosters as scheduled If your symptoms worsen call your PCP, if no PCP go to Urgent Care Center or Emergency Room Smoking is Dangerous to Your Health. Avoid second hand smoke Call the 24-hour hour crisis hotline for domestic abuse at Toby Ellis Oct 14, 2017 13:04
--- NOTE | 2017-10-14 14:27 | EKG ---
Date Performed: 10/14/2017 Time Performed: 04:27:45 PTAGE: 82 years EKG: ELECTRONIC ATRIAL PACEMAKER ELECTRONIC VENTRICULAR PACEMAKER ABNORMAL RHYTHM ECG PREVIOUS TRACING : 10/14/2017 00.13 Since previous tracing, no significant change noted DOCTOR: Dano Coreas Interpretating Date/Time 10/14/2017 14:26:09
--- NOTE | 2017-10-14 14:28 | EKG ---
Date Performed: 10/14/2017 Time Performed: 00:13:18 PTAGE: 82 years EKG: ELECTRONIC ATRIAL PACEMAKER ELECTRONIC VENTRICULAR PACEMAKER ABNORMAL RHYTHM ECG PREVIOUS TRACING : 10/13/2017 20.01 Since previous tracing, no significant change noted DOCTOR: Dano Coreas Interpretating Date/Time 10/14/2017 14:27:19
--- NOTE | 2017-10-14 14:29 | EKG ---
Date Performed: 10/13/2017 Time Performed: 20:01:27 PTAGE: 82 years EKG: ELECTRONIC VENTRICULAR PACEMAKER ABNORMAL RHYTHM ECG NO PREVIOUS TRACING DOCTOR: Dano Coreas Interpretating Date/Time 10/14/2017 14:28:03
--- NOTE | 2017-10-14 14:30 | TR ---
Date Performed: 10/14/2017 Time Performed: 10:55:31 DOCTOR: Dano Coreas DRUG LIST: CLINICAL HISTORY: CHEST PAIN REASON FOR TEST: CHEST PAIN REASON FOR ENDING: OBSERVATION: CONCLUSION: Lexiscan stress test was performed under standard four minute protocol. Radionuclid e was injected one minute prior to ending the test. No electrocardiographic abormalities were present to suggest ischemia. Nuclear imaging and interpretation are pending. COMMENTS:
[2017-10-14] MEDS ORDERED: ATORVASTATIN 20 MG TAB PO SCH (21:00)
== END 2017-10-14 14:28 | disposition home or self-care (01) ==
LOC: NEPC 19:55 → NEDA 21:34 → NEPHCDU 22:14
PROVIDERS: ADMIT Internal Medicine Interventional Cardiology; ATTEND Internal Medicine Interventional Cardiology
DX: R07.89 Other chest pain (principal); I25.10 Atherosclerotic heart disease of native coronary artery without angina pectoris; R00.1 Bradycardia, unspecified; I13.0 Hypertensive heart and chronic kidney disease with heart failure and stage 1 through stage 4 chronic kidney disease, or unspecified chronic kidney disease; I50.9 Heart failure, unspecified; N18.9 Chronic kidney disease, unspecified; E78.00 Pure hypercholesterolemia, unspecified; E78.5 Hyperlipidemia, unspecified; K56.7 Ileus, unspecified; I48.0 Paroxysmal atrial fibrillation; G47.30 Sleep apnea, unspecified; M19.90 Unspecified osteoarthritis, unspecified site; Z95.1 Presence of aortocoronary bypass graft; Z95.0 Presence of cardiac pacemaker; Z86.73 Personal history of transient ischemic attack (TIA), and cerebral infarction without residual deficits; Z87.442 Personal history of urinary calculi; Z79.01 Long term (current) use of anticoagulants; Z96.652 Presence of left artificial knee joint
CPT/HCPCS: 71045; 78452; 80053; 82550; 82552; 83880; 84443; 84484; 85025; 85610; 85730; 93005; 93017; 96360; 96361; 99285; A9502; G0378; J2785; J7030

== ENCOUNTER 2017-10-26 08:27 | Observation (INO) | payer MEDICARE, MEDICAID ==
[~2017-10-26] VITALS: Ht 167.6 cm; Wt 109.0 kg
[2017-10-26] VITALS (10 sets, daily range): BP systolic 81–138; BP diastolic 45–61; PULSE 69–109; RESP 16–22; TEMP 97.8–99.2; O2SAT 91–98
[~2017-10-26 08:27] MED LIST changes: +AMLO5TAB2 PO; +BUSP5TAB PO; +POTA540T PO
[2017-10-26] MEDS ORDERED: POTASOL PO (08:45)
[2017-10-26] MEDS ORDERED: DOCU100C15 PO (08:45)
[2017-10-26] MEDS ORDERED: METO2.5T PO (08:45)
[2017-10-26] MEDS ORDERED: SODIUM CHLORIDE 0.9% FLUSH 10 ML FLUSH IVF PRN (09:15)
--- NOTE | 2017-10-26 09:26 | RADRPT ---
EXAM DATE/TIME: 10/26/2017 09:09 [facility] COMPARISON: CHEST SINGLE AP, October 13, 2017, 20:10. INDICATIONS : Shortness of breath, cough, and congestion for one day. MEDICAL HISTORY : Hypertension. Myocardial infarction. Congestive heart failure. Hypercholesterolemia. CAD. Hyper lipidemia. A-Fib. Sleep apnea. Kidney stones. SURGICAL HISTORY : CABG. Pacemaker. Tonsillectomy. Total knee replacement, left. Cardiac cath. Colectomy. Lithotripsy. ENCOUNTER: Initial ACUITY: 1 day PAIN SCORE: 0/10 LOCATION: Bilateral chest FINDINGS: The lungs are symmetrically aerated and clear. Stable eventration right hemidiaphragm. Prior median sternotomy and CABG. Cardiac pacer leads stable in position. Healed right rib fractures. CONCLUSION: The lungs are clear. Andres Carrillo MD on October 26, 2017 at 9:24 Board Certified Radiologist. This report was verified electronically.
[2017-10-26 09:29] LABS: AUTOMATED NEUTROPHIL # 6.7 TH/MM3 (1.8-7.7); BASOPHIL % 0.3 % (0.0-2.0); EOSINOPHIL # 0.1 TH/MM3 (0-0.4); EOSINOPHIL % 1.6 % (0.0-4.0); HEMATOCRIT 41.7 % (39.0-51.0); HEMOGLOBIN 13.6 GM/DL (13.0-17.0); LYMPH % 5.1 % (9.0-44.0); LYMPHOCYTE # 0.4 TH/MM3 (1.0-4.8); MEAN CELL VOLUME 74.3 FL (80.0-100.0); MEAN CORPUSCULAR HEMOGLOBIN 24.2 PG (27.0-34.0); MEAN CORPUSCULAR HGB CONC 32.5 % (32.0-36.0); MEAN PLATELET VOLUME 8.2 FL (7.0-11.0); MONO % 4.1 % (0.0-8.0); MONOCYTE # 0.3 TH/MM3 (0-0.9); NEUT % 88.9 % (16.0-70.0); PLATELET COUNT 166 TH/MM3 (150-450); RED BLOOD COUNT 5.62 MIL/MM3 (4.50-5.90); RED CELL DISTRIBUTION WIDTH 16.2 % (11.6-17.2); WHITE BLOOD COUNT 7.6 TH/MM3 (4.0-11.0)
[2017-10-26] MEDS ORDERED: DOPamine INJ PREMIX 500 ML IV PRN (09:30)
[2017-10-26] MEDS ORDERED: TERBUTALINE INJ 1 MG/ML AMP SQ PRN (09:30)
[2017-10-26 09:37] LABS: INTERNATIONAL NORMALIZED RATIO 1.1 RATIO; PROTHROMBIN TIME - PATIENT 11.4 SEC (9.8-11.6)
[2017-10-26 09:41] LABS: ALBUMIN 3.5 GM/DL (3.4-5.0); ALT (GPT) 17 U/L (12-78); AST (GOT) 17 U/L (15-37); BLOOD UREA NITROGEN 60 MG/DL (7-18); CALCIUM 9.1 MG/DL (8.5-10.1); CHLORIDE 100 MEQ/L (98-107); CREATININE 2.32 MG/DL (0.60-1.30); GLOMERULAR FILTRATION RATE 27 ML/MIN (>89); GLUCOSE,RANDOM 114 MG/DL (74-106); SODIUM (NA) 137 MEQ/L (136-145)
[2017-10-26] MEDS ORDERED: DOPamine INJ PREMIX 500 ML ONE (09:43)
[2017-10-26] MEDS ORDERED: SODIUM CHLORID 0.9% 500 ML INJ 500 ML IV ONE (09:45)
[2017-10-26 09:46] LABS: ALKALINE PHOSPHATASE 72 U/L (45-117); TOTAL BILIRUBIN ADULT 0.5 MG/DL (0.2-1.0); TOTAL PROTEIN 7.3 GM/DL (6.4-8.2); TROPONIN I LESS THAN 0.02 NG/ML (0.02-0.05)
--- NOTE | 2017-10-26 09:49 | PD ---
HPI Chief Complaint: Respiratory Distress Time Seen by Provider: 09:02 Travel History International Travel<30 days: No Contact w/Intl Traveler<30days: No Traveled to known affect area: No History of Present Illness HPI This is an 82-year-old male with a history of coronary artery disease, cardiomyopathy, paced rhythm, who presents today with complaints of shortness of breath 24 hours. Patient reports he had a URI about a week ago. He states when it started, he was having productive cough with dark yellow brown phlegm. He states that has improved however he is still having shortness of breath. He denies any chest pain, chest pressure. He denies any nausea or diaphoresis. is at the bedside states that his edema has actually improved over the last few days. There is no reported fevers, chills. The patient does report mild dizziness. PFSH Past Medical History Hx Anticoagulant Therapy: Yes (eliquis ) Arthritis: Yes Asthma: No Atrial Fibrillation: Yes Autoimmune Disease: No Blood Disorders: No Anxiety: No Depression: No Heart Rhythm Problems: Yes (a-fib/pacemaker) Cancer: No Cardiac Catheterization: Yes Cardiovascular Problems: Yes High Cholesterol: Yes Chemotherapy: No Chest Pain: Yes (on occaison) Congestive Heart Failure: Yes COPD: No Cerebrovascular Accident: No Coronary Artery Disease: Yes Diabetes: No Diminished Hearing: No Endocrine: No Gastrointestinal Disorders: Yes (ILEUS) GERD: No Glaucoma: No Genitourinary: Yes (KIDNEY STONES) Headaches: No Hepatitis: No Hiatal Hernia: No Hypertension: Yes Immune Disorder: No Implanted Vascular Access Dvce: Yes (PACER) Kidney Stones: Yes Musculoskeletal: Yes (arthritis) Neurologic: Yes (tia 2016; Hx [place] Palsy left side) Psychiatric: No Reproductive: No Respiratory: Yes Immunizations Current: Yes Migraines: No Radiation Therapy: No Renal Failure: No Seizures: No Sleep Apnea: Yes (C-PAP AT NIGHT) Thyroid Disease: No Ulcer: No PNEUMOCCOCAL Vaccine (Year): 1 Past Surgical History Abdominal Surgery: No AICD: No Arteriovenous Shunt: No Body Medical Devices: STERNAL WIRES,CABG X4 PACER Cardiac Surgery: Yes (CABG 4 VESSEL, PACER ) Coronary Artery Bypass Graft: Yes Ear Surgery: No Endocrine Surgery: No Eye Surgery: No Genitourinary Surgery: Yes (lithotripsy) Gynecologic Surgery: No Insulin Pump: No Joint Replacement: No Neurologic Surgery: No Oral Surgery: No Pacemaker: Yes (BIOTRONIC) Thoracic Surgery: No Tonsillectomy: Yes Other Surgery: Yes (LEFT ARM fixation) Social History Alcohol Use: Yes (rarely) Tobacco Use: No Substance Use: No Allergies-Medications (Allergen,Severity, Reaction): Coded Allergies: Fish Containing Products (Unverified Allergy, Severe, 10/26/17) diclofenac (Unverified Allergy, Severe, ANAPHYLAXIS, 10/26/17) furosemide (Unverified Allergy, Severe, ANAPHYLAXIS, 10/26/17) MRI PRECAUTION (Verified Adverse Reaction, Severe, 10/26/17) PT HAS PACER Sulfa (Sulfonamide Antibiotics) (Unverified Adverse Reaction, Severe, HEAD ACHE, 10/26/17) Reported Meds & Prescriptions Reported Meds & Active Scripts Active Temazepam 7.5 Mg Cap 7.5 Mg PO HS PRN Metoprolol Succinate ER 24 HR (Metoprolol Succinate) 25 Mg Tab 12.5 Mg PO DAILY@ 11 Crestor (Rosuvastatin Calcium) 10 Mg Tab 10 Mg PO HS Eliquis (Apixaban) 5 Mg Tab 5 Mg PO BID Reported Metolazone 2.5 Mg Tab 2.5 Mg PO DAILY Docusate Sodium 100 Mg Cap 100 Mg PO BID Potassium Citrate-Citric Acid 1,100-334 Mg/5 Ml Soln 15 Ml PO QID Amlodipine (Amlodipine Besylate) 5 Mg Tab 5 Mg PO DAILY Lisinopril 10 Mg Tab 10 Mg PO DAILY Bumetanide 1 Mg Tab 1 Mg PO DAILY Review of Systems Except as stated in HPI: all other systems reviewed are Neg General / Constitutional: No: Fever Eyes: No: Blurred Vision, Photophobia HENT: Positive: Lightheadedness, No: Headaches, Neck Pain Cardiovascular: Positive: Other (Paced rhythm), No: Chest Pain or Discomfort, Palpitations Respiratory: Positive: Cough, Shortness of Breath, No: Wheezing Gastrointestinal: No: Nausea, Vomiting, Abdominal Pain Genitourinary: No: Dysuria, Decreased Urinary Output Musculoskeletal: Positive: Weakness, Edema (Chronic), No: Pain Skin: No Rash, No Lesions Neurologic: Positive: Weakness, No: Dizziness, Headache Physical Exam Narrative GENERAL: Well-developed well-nourished male in mild respiratory discomfort SKIN: Focused skin assessment warm/dry. HEAD: Atraumatic. Normocephalic. EYES: No scleral icterus. No injection or drainage. ENT: No nasal bleeding or discharge. Mucous membranes pink and moist. NECK: Trachea midline. No JVD. Supple. CARDIOVASCULAR: Intermittently paced rhythm with a rate ranging from the 70s to the low 100s. RESPIRATORY: No accessory muscle use. Fine rales heard at the lower lung bases bilaterally. No rhonchi. GASTROINTESTINAL: Abdomen soft, non-tender, nondistended. Hepatic and splenic margins not palpable. MUSCULOSKELETAL: No obvious deformities. No clubbing. No cyanosis. 2+ pretibial edema bilaterally. NEUROLOGICAL: Awake and alert. No obvious cranial nerve deficits. Motor grossly within normal limits. Normal speech. PSYCHIATRIC: Appropriate mood and affect; insight and judgment normal. Data Data Last Documented VS Vital Signs Date Time Temp Pulse Resp B/P (MAP) Pulse Ox O2 Delivery O2 Flow Rate FiO2 10/26/17 10:00 75 18 107/61 (76) 97 Nasal Cannula 2.00 10/26/17 08:30 99.2 Orders Orders Complete Blood Count With Diff (10/26/17 09:02) Comprehensive Metabolic Panel (10/26/17 09:02) Basic Metabolic Panel (Bmp) (10/26/17 09:02) B-Type Natriuretic Peptide (10/26/17 09:02) Act Partial Throm Time (Ptt) (10/26/17:02) Prothrombin Time / Inr (Pt) (10/26/17 09:02) Ckmb (Isoenzyme) Profile (10/26/17 09:02) Troponin I (10/26/17 09:02) Iv Access Insert/Monitor (10/26/17:02) Ecg Monitoring (10/26/17 09:02) Oximetry (10/26/17 09:02) Oxygen Administration (10/26/17 09:02) Chest, Single Ap (10/26/17 09:02) Sodium Chloride 0.9% Flush (Ns Flush) (10/26/17 09:15) Lactic Acid Sepsis Protocol (10/26/17 09:27) Blood Culture (10/26/17 09:27) ^ Infusion (10/26/17 ) Dopamine Inj Premix (Dopamine Inj Premix (10/26/17 09:30) Terbutaline Inj (Brethine Inj) (10/26/17 09:30) Sodium Chlorid 0.9% 500 Ml Inj (Ns 500 M (10/26/17 09:45) Dopamine Inj Premix (Dopamine Inj Premix (10/26/17 09:43) CKMB (10/26/17 09:05) CKMB% (10/26/17 09:05) Sodium Chlor 0.9% 1000 Ml Inj (Ns 1000 M (10/26/17 10:45) Electrocardiogram (10/26/17 08:48) Admit Order (Ed Use Only) (10/26/17 11:42) Labs Laboratory Tests Test 10/26/17 09:05 10/26/17 10:10 White Blood Count 7.6 TH/MM3 Red Blood Count 5.62 MIL/MM3 Hemoglobin 13.6 GM/DL Hematocrit 41.7 % Mean Corpuscular Volume 74.3 FL Mean Corpuscular Hemoglobin 24.2 PG Mean Corpuscular Hemoglobin Concent 32.5 % Red Cell Distribution Width 16.2 % Platelet Count 166 TH/MM3 Mean Platelet Volume 8.2 FL Neutrophils (%) (Auto) 88.9 % Lymphocytes (%) (Auto) 5.1 % Monocytes (%) (Auto) 4.1 % Eosinophils (%) (Auto) 1.6 % Basophils (%) (Auto) 0.3 % Neutrophils # (Auto) 6.7 TH/MM3 Lymphocytes # (Auto) 0.4 TH/MM3 Monocytes # (Auto) 0.3 TH/MM3 Eosinophils # (Auto) 0.1 TH/MM3 Basophils # (Auto) 0.0 TH/MM3 CBC Comment DIFF FINAL Differential Comment Prothrombin Time 11.4 SEC Prothromb Time International Ratio 1.1 RATIO Activated Partial Thromboplast Time 29.8 SEC Blood Urea Nitrogen 60 MG/DL Creatinine 2.32 MG/DL Random Glucose 114 MG/DL Total Protein 7.3 GM/DL Albumin 3.5 GM/DL Calcium Level 9.1 MG/DL Alkaline Phosphatase 72 U/L Aspartate Amino Transf (AST/SGOT) 17 U/L Alanine Aminotransferase (ALT/SGPT) 17 U/L Total Bilirubin 0.5 MG/DL Sodium Level 137 MEQ/L Potassium Level 4.0 MEQ/L Chloride Level 100 MEQ/L Carbon Dioxide Level 26.0 MEQ/L Anion Gap 11 MEQ/L Estimat Glomerular Filtration Rate 27 ML/MIN Total Creatine Kinase 113 U/L Creatine Kinase MB 0.9 NG/ML Troponin I LESS THAN 0.02 NG/ML B-Type Natriuretic Peptide 53 PG/ML Lactic Acid Level 2.1 mmol/L MDM Medical Decision Making Medical Screen Exam Complete: Yes Emergency Medical Condition: Yes Differential Diagnosis CHF versus pneumonia versus bronchitis versus metabolic derangement Narrative Course 82-year-old male with history of CHF, cardiomyopathy, presents here with plaints of shortness of breath times several days. Patient had recent URI. The patient's chest x-ray is negative for acute infiltrate. Patient's BUN and creatinine are elevated at 60/2.3. Baseline is 2.0. Patient appears to be volume depleted with acute kidney injury on top of chronic kidney injury. Patient's been given 500 cc fluid bolus which brought his systolic pressure from 87 up to the low 100s. He will be admitted for IV hydration. Given his presentation we will place him under observation initially. Case was discussed with the [facility] [facility] and will be admitted under Dr. Barron bloom. Diagnosis Primary Impression: [id number] kidney injury Additional Impressions: Hypotensive episode CAD (coronary artery disease) Paroxysmal A-fib Dyspnea Admitting Information Admitting Physician Requests: Observation Gregg Nelson MD Oct 26, 2017 09:49
[2017-10-26 10:52] LABS: LACTIC ACID SEPSIS PROTOCOL 2.1 mmol/L (0.4-2.0)
[2017-10-26] MEDS: SODIUM CHLOR 0.9% 1000 ML INJ 1,000 ML IV SCH ×2 (11:07→21:28)
--- NOTE | 2017-10-26 11:18 | HHI.HP ---
[facility] Service Family Medicine Primary Care Physician Nilton Pisano MD Admission Diagnosis Diagnoses: International Travel<30 Days: No Contact w/Intl Traveler<30days: No Known Affected Area: No History of Present Illness Patient is a 82-year-old male with past medical history significant for A. 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 Patient stated that last night he noticed he was having difficulty breathing, it resolved but this morning he felt the the shortness of breath worsened. He felt like he couldn't get enough air in his lungs even while sitting down. He became concerned there may be something wrong with his heart so he came to the ED for further evaluation. He also reports that about 10 days ago he had a URI and developed cough and productive sputum. URI sxs have improved. However, he stated that since the URI started he needs to sleeps in a recliner due to exacerbation of cough when he lays down. Denies fever, N/V , chest pain, SHEEHAN. Endorses lower extremity swelling, worse on his left LE for the past 2 days. Denies any change in urine output. Patient has not taken any of his medication today. Of note patient uses CPAP machine at home. -In the ED patient found to be hypotensive BP of 80/40s, patient was given 500 mL bolus. Chest x-ray showed no acute disease. Review of Systems Constitutional: DENIES: Fatigue, Fever, Weight loss, Chills Eyes: DENIES: Blurred vision Ears, nose, mouth, throat: DENIES: Throat pain Respiratory: COMPLAINS OF: Cough (improved), Sputum production (improved), Shortness of breath Cardiovascular: COMPLAINS OF: Lower Extremity Edema, DENIES: Chest pain, Palpitations, Syncope Gastrointestinal: COMPLAINS OF: Abdominal pain (mild with cough), Diarrhea ( start yesterday, watery 5-6 episodes yesterday, 2 epidose today, no solid food since 730pm last night), DENIES: Nausea, Vomiting Genitourinary: DENIES: Urinary frequency, Dysuria Musculoskeletal: DENIES: Joint pain, Muscle aches, Back pain Integumentary: DENIES: Rash Hematologic/lymphatic: DENIES: Bruising Neurologic: DENIES: Headache, Paresthesias Psychiatric: DENIES: Confusion Past Family Social History Past Medical History Kidney stones Coronary Artery Disease Quadruple bypass February 2012 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 Osteoarthritis Hypertension Atrial fibrillation, Past Surgical History Left knee replacement November 25, 2016 Quadruple bypass February 2012 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 Reported Medications Reported Meds & Active Scripts Active Temazepam 7.5 Mg Cap 7.5 Mg PO HS PRN Metoprolol Succinate ER 24 HR (Metoprolol Succinate) 25 Mg Tab 12.5 Mg PO DAILY@ 11 Crestor (Rosuvastatin Calcium) 10 Mg Tab 10 Mg PO HS Eliquis (Apixaban) 5 Mg Tab 5 Mg PO BID Reported Metolazone 2.5 Mg Tab 2.5 Mg PO DAILY Docusate Sodium 100 Mg Cap 100 Mg PO BID Potassium Citrate-Citric Acid 1,100-334 Mg/5 Ml Soln 15 Ml PO QID Amlodipine (Amlodipine Besylate) 5 Mg Tab 5 Mg PO DAILY Lisinopril 10 Mg Tab 10 Mg PO DAILY Bumetanide 1 Mg Tab 1 Mg PO DAILY Allergies: Coded Allergies: Fish Containing Products (Unverified Allergy, Severe, 10/26/17) diclofenac (Unverified Allergy, Severe, ANAPHYLAXIS, 10/26/17) furosemide (Unverified Allergy, Severe, ANAPHYLAXIS, 10/26/17) MRI PRECAUTION (Verified Adverse Reaction, Severe, 10/26/17) PT HAS PACER Sulfa (Sulfonamide Antibiotics) (Unverified Adverse Reaction, Severe, HEAD ACHE, 10/26/17) Active Ordered Medications Current Medications Medications (Trade) Dose Ordered Sig/Salvador Route Start Time Stop Time Status Last Admin (NS Flush) 2 ml UNSCH PRN IVF 10/26/17 09:15 Dopamine HCl/ Dextrose 500 ml @ 0 mls/hr TITRATE PRN IV 10/26/17 09:30 (Brethine Inj) 1 mg UNSCH PRN SQ 10/26/17 09:30 Sodium Chloride 500 ml @ 500 mls/hr BOLUS ONCE IV 10/26/17 09:45 10/26/17 10:44 10/26/17 10:18 Sodium Chloride 1,000 ml @ 100 mls/hr Q10H IV 10/26/17 10:45 10/26/17 11:07 Family History Father - 63 y/o heart disease, previous smoker, HTN, HLP Mother - 72 y/o heart disease Sister - lung cancer Daughter and Son - healthy Social History Reitred : Kelli No tob Occasional EtOH Denies illicit drug use Yarsanism - Part of [facility] Physical Exam Vital Signs Vital Signs Date Time Temp Pulse Resp B/P (MAP) Pulse Ox O2 Delivery O2 Flow Rate FiO2 10/26/17 10:00 75 18 107/61 (76) 97 Nasal Cannula 2.00 10/26/17 09:21 98 Nasal Cannula 2.00 10/26/17 09:20 79 20 81/51 (61) 97 Nasal Cannula 2.00 10/26/17 08:49 109 20 87/45 (59) 95 10/26/17 08:36 18 98 Room Air 10/26/17 08:30 99.2 101 22 138/58 (84) 91 Physical Exam GENERAL: This is a well-nourished, well-developed patient, in no apparent distress. SKIN: No rashes, ecchymoses or lesions. Cool and dry. HEAD: Atraumatic. Normocephalic. No temporal or scalp tenderness. EYES: Pupils equal round and reactive. Extraocular motions intact. mild scleral icterus. No injection or drainage. ENT: Nose without bleeding, purulent drainage or septal hematoma. Throat without erythema, tonsillar hypertrophy or exudate. Uvula midline. Airway patent. NECK: Trachea midline. No JVD or lymphadenopathy. Supple, nontender, no meningeal signs. CARDIOVASCULAR: Normal S1 and S2, without murmurs, gallops, or rubs. RESPIRATORY: Expiratory wheezing throughout right lung. No, rales, or rhonchi. GASTROINTESTINAL: Obese abdomen, soft, mild tenderness to palpation along right mid quadrant. No hepato-splenomegaly, or palpable masses. No guarding. MUSCULOSKELETAL: Extremities +1 edema BL, more pronounced on Left LE. No joint tenderness, effusion or edema noted. No calf tenderness. Negative Homans sign bilaterally. NEUROLOGICAL: Awake and alert. Cranial nerves II through XII intact. Motor and sensory grossly within normal limits. Five out of 5 muscle strength in all muscle groups. Normal speech. Laboratory Laboratory Tests Test 10/26/17 09:05 10/26/17 10:10 White Blood Count 7.6 Red Blood Count 5.62 Hemoglobin 13.6 Hematocrit 41.7 Mean Corpuscular Volume 74.3 Mean Corpuscular Hemoglobin 24.2 Mean Corpuscular Hemoglobin Concent 32.5 Red Cell Distribution Width 16.2 Platelet Count 166 Mean Platelet Volume 8.2 Neutrophils (%) (Auto) 88.9 Lymphocytes (%) (Auto) 5.1 Monocytes (%) (Auto) 4.1 Eosinophils (%) (Auto) 1.6 Basophils (%) (Auto) 0.3 Neutrophils # (Auto) 6.7 Lymphocytes # (Auto) 0.4 Monocytes # (Auto) 0.3 Eosinophils # (Auto) 0.1 Basophils # (Auto) 0.0 CBC Comment DIFF FINAL Differential Comment Prothrombin Time 11.4 Prothromb Time International Ratio 1.1 Activated Partial Thromboplast Time 29.8 Blood Urea Nitrogen 60 Creatinine 2.32 Random Glucose 114 Total Protein 7.3 Albumin 3.5 Calcium Level 9.1 Alkaline Phosphatase 72 Aspartate Amino Transf (AST/SGOT) 17 Alanine Aminotransferase (ALT/SGPT) 17 Total Bilirubin 0.5 Sodium Level 137 Potassium Level 4.0 Chloride Level 100 Carbon Dioxide Level 26.0 Anion Gap 11 Estimat Glomerular Filtration Rate 27 Total Creatine Kinase 113 Creatine Kinase MB 0.9 Troponin I LESS THAN 0.02 B-Type Natriuretic Peptide 53 Lactic Acid Level 2.1 Date/Time Source Procedure Growth Status 10/26/17 09:35 Blood Peripheral Aerobic Blood Culture Pending Received 10/26/17 09:35 Blood Peripheral Anaerobic Blood Culture Pending Received Result Diagram: 10/26/1790410/26/17904 Imaging Last Impressions Chest X-Ray 10/26/17901 Signed Impressions: Service Date/Time: Thursday, October 26, 2017 09:09 - CONCLUSION: The lungs are clear. Andres Carrillo MD Caprini VTE Risk Assessment Caprini VTE Risk Assessment: Mod/High Risk (score >= 2) Caprini Risk Assessment Model Point Value = 1 Point Value = 2 Point Value = 3 Point Value = 5 Age 41-60 Minor surgery BMI > 25 kg/m2 Swollen legs Varicose veins or History of unexplained or recurrent spontaneous Oral contraceptives or hormone replacement Sepsis (< 1 month) Serious lung disease, including pneumonia (< 1 month) Abnormal pulmonary function Acute myocardial infarction Congestive heart failure (< 1 month) History of inflammatory bowel disease Medical patient at bed rest Age 61-74 Arthroscopic surgery Major open surgery (> 45 min) Laparoscopic surgery (> 45 min) Malignancy Confined to bed (> 72 hours) Immobilizing plaster cast Central venous access Age >= 75 History of VTE Family history of VTE Factor V Leiden Prothrombin [id number] Lupus anticoagulant Anticardiolipin antibodies Elevated serum homocysteine Heparin-induced thrombocytopenia Other congenital or acquired thrombophilia Stroke (< 1 month) Elective arthroplasty Hip, pelvis, or leg fracture Acute spinal cord injury (< 1 month) Prophylaxis Regimen Total Risk Factor Score Risk Level Prophylaxis Regimen 0-1 Low Early ambulation 2 Moderate Order ONE of the following: *Sequential Compression Device (SCD) *Heparin 5000 units SQ BID 3-4 Higher Order ONE of the following medications: *Heparin 5000 units SQ TID *Enoxaparin/Lovenox 40 mg SQ daily (WT < 150 kg, CrCl > 30 mL/min) *Enoxaparin/Lovenox 30 mg SQ daily (WT < 150 kg, CrCl > 10-29 mL/min) *Enoxaparin/Lovenox 30 mg SQ BID (WT < 150 kg, CrCl > 30 mL/min) AND/OR *Sequential Compression Device (SCD) 5 or more Highest Order ONE of the following medications: *Heparin 5000 units SQ TID (Preferred with Epidurals) *Enoxaparin/Lovenox 40 mg SQ daily (WT < 150 kg, CrCl > 30 mL/min) *Enoxaparin/Lovenox 30 mg SQ daily (WT < 150 kg, CrCl > 10-29 mL/min) *Enoxaparin/Lovenox 30 mg SQ BID (WT < 150 kg, CrCl > 30 mL/min) AND *Sequential Compression Device (SCD) Assessment and Plan Assessment and Plan Patient is a 82-year-old male with past medical history significant for A. 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 Patient was presented to the [facility] ED for further evaluation of shortness of breath. Patient was found to have acute on chronic ARIANE. Admitted for treatment with fluid resuscitation. Code Status full code Discussed Condition With OCTAVIOW Dr. Will SHARPW Dr. Jean Problem List: (1) ARIANE (acute kidney injury) ICD Codes: N17.9 - Acute kidney failure, unspecified Plan: Patient with acute on chronic ARIANE -hold lisinopril, metolazone -IVF at 110 mls/hr, 10/10 maintenance -Cr-2.32, baseline ranging from 0.89-- 2.29, will continue to monitor -Elevated lactic acid of 2.1, will continue to monitor, could be due to poor perfusion. (2) A-fib ICD Codes: I48.91 - Unspecified atrial fibrillation Status: Chronic Plan: -c/w eliquis QD (3) CHF (congestive heart failure) ICD Codes: I50.9 - Heart failure, unspecified Status: Chronic Plan: Patient states he has history of CHF -Consider doing echocardiogram (4) DANA on CPAP ICD Codes: G47.33 - Obstructive sleep apnea (adult) (pediatric) Status: Acute Plan: Patient uses CPAP for sleep -Pt advised to have family members bring in CPAP machine for his use overnight (5) HTN (hypertension) ICD Codes: I10 - Essential (primary) hypertension Status: Chronic Plan: -hold lisinopril and metolazone -resume amlodipine tomorrow -Will continue to monitor vital signs (6) Nutrition, metabolism, and development symptoms ICD Codes: R63.8 - Other symptoms and signs concerning food and fluid intake Plan: Fluids: 100mls/hr Electrolytes: replete as needed Nutrition: Heart healthy DVT ppx: c/w with home eliquis Problem Qualifiers (1) A-fib: Qualified Codes: I48.2 - Chronic atrial fibrillation Tavon Melara MD, R1 Oct 26, 2017 11:17
[2017-10-26] MEDS ORDERED: LACTULOSE SYRUP 20 GM/30 ML CUP PO PRN (12:00)
[2017-10-26] MEDS ORDERED: BISACODYL 10 MG SUPP RECTAL PRN (12:00)
[2017-10-26] MEDS ORDERED: ACETAMINOPHEN 325 MG TAB PO PRN (12:00)
[2017-10-26] MEDS ORDERED: SENNOSIDES 8.6 MG TAB PO PRN (12:00)
[2017-10-26] MEDS ORDERED: MAGNESIUM HYDROXIDE SUSP 30 ML CUP PO PRN (12:00)
[2017-10-26] MEDS ORDERED: SODIUM CHLORIDE 0.9% FLUSH 10 ML FLUSH IV FLUSH PRN (12:00)
[2017-10-26] MEDS ORDERED: NALOXONE HCL 0.4 MG/ML AMP IV PUSH PRN (12:00)
[2017-10-26] MEDS ORDERED: TEMAZEPAM 7.5 MG CAP PO PRN (13:00)
[2017-10-26] MEDS: POTASSIUM CITRATE/CITRIC ACID SOLN 15 ML UDC PO SCH ×3 (13:00→21:00)
[2017-10-26] MEDS ORDERED: ONDANSETRON HCL 4 MG/2 ML VIAL IVP PRN (13:00)
[2017-10-26] MEDS: SODIUM CHLORIDE 0.9% FLUSH 10 ML FLUSH IV FLUSH SCH (21:00)
[2017-10-26] MEDS ORDERED: ATORVASTATIN 20 MG TAB PO SCH (21:00)
[2017-10-26] MEDS: DOCUSATE SODIUM 50 MG/SENNA 8.6 MG TAB PO SCH (21:29)
[2017-10-26] MEDS: APIXABAN 5 MG TABLET PO SCH (21:29)
--- NOTE | 2017-10-26 22:51 | EKG ---
Date Performed: 10/26/2017 Time Performed: 08:48:33 PTAGE: 82 years EKG: ELECTRONIC ATRIAL and ventricular PACEMAKER LOW QRS VOLTAGE IN EXTREMITY LEADS POSSIBLE RIG HT VENTRICULAR CONDUCTION DELAY PREVIOUS TRACING : 10/14/2017 04.27 DOCTOR: Tiago Winslow Interpretating Date/Time 10/26/2017 22:47:20
[2017-10-27 02:11] VITALS: PULSE 71
[2017-10-27 02:26] VITALS: BP 110/53; PULSE 79; RESP 18; TEMP 98; O2SAT 98
[2017-10-27 06:33] LABS: AUTOMATED NEUTROPHIL # 2.8 TH/MM3 (1.8-7.7); BASOPHIL % 0.5 % (0.0-2.0); EOSINOPHIL # 0.2 TH/MM3 (0-0.4); EOSINOPHIL % 4.6 % (0.0-4.0); HEMATOCRIT 36.9 % (39.0-51.0); HEMOGLOBIN 12.2 GM/DL (13.0-17.0); LYMPH % 19.3 % (9.0-44.0); LYMPHOCYTE # 0.9 TH/MM3 (1.0-4.8); MEAN CELL VOLUME 73.9 FL (80.0-100.0); MEAN CORPUSCULAR HEMOGLOBIN 24.5 PG (27.0-34.0); MEAN CORPUSCULAR HGB CONC 33.2 % (32.0-36.0); MEAN PLATELET VOLUME 8.1 FL (7.0-11.0); MONO % 11.4 % (0.0-8.0); MONOCYTE # 0.5 TH/MM3 (0-0.9); NEUT % 64.2 % (16.0-70.0); PLATELET COUNT 155 TH/MM3 (150-450); RED CELL DISTRIBUTION WIDTH 15.9 % (11.6-17.2); WHITE BLOOD COUNT 4.4 TH/MM3 (4.0-11.0)
[2017-10-27] MEDS: SODIUM CHLOR 0.9% 1000 ML INJ 1,000 ML IV SCH (06:45)
[2017-10-27 07:09] VITALS: PULSE 46
[2017-10-27 07:25] LABS: AST (GOT) 30 U/L (15-37); BICARBONATE 28.8 MEQ/L (21.0-32.0); BLOOD UREA NITROGEN 46 MG/DL (7-18); CHLORIDE 105 MEQ/L (98-107); GLOMERULAR FILTRATION RATE 45 ML/MIN (>89); GLUCOSE,RANDOM 94 MG/DL (74-106); SODIUM (NA) 141 MEQ/L (136-145)
[2017-10-27 07:28] LABS: ALKALINE PHOSPHATASE 60 U/L (45-117); ALT (GPT) 26 U/L (12-78); TOTAL BILIRUBIN ADULT 0.5 MG/DL (0.2-1.0)
[2017-10-27 07:29] LABS: TOTAL PROTEIN 6.4 GM/DL (6.4-8.2)
[2017-10-27 07:58] VITALS: BP 124/59; PULSE 82; RESP 20; TEMP 98.7; O2SAT 94
--- NOTE | 2017-10-27 08:43 | RADRPT ---
EXAM DATE/TIME: 10/27/2017 08:26 [place] COMPARISON: CHEST SINGLE AP, October 26, 2017, 9:09. INDICATIONS : Productive cough and short of breath since yesterday. MEDICAL HISTORY : Hypertension. Congestive heart failure. Myocardial infarction. Atrial fibrillation. SURGICAL HISTORY : Pacemaker. CABG. ENCOUNTER: Subsequent ACUITY: 2 days PAIN SCORE: 0/10 LOCATION: Bilateral chest FINDINGS: Stable median sternotomy wires and postsurgical features of prior cardiac surgery. Stable dual-lead p acemaker in place. No new focal pleural or parenchymal opacities. Cardiomediastinal contours are with in normal limits. Remainder of the exam is unchanged. CONCLUSION: 1. No acute abnormality or significant interval change. Ish Vincent MD on October 27, 2017 at 8:40 Board Certified Radiologist. This report was verified electronically.
[2017-10-27] MEDS ORDERED: BUMETANIDE 1 MG TAB PO SCH (09:00)
[2017-10-27] MEDS ORDERED: amLODIPine BESYLATE 5 MG TAB PO SCH (09:00)
[2017-10-27] MEDS ORDERED: METOLAZONE 2.5 MG TAB PO SCH (09:00)
[2017-10-27] MEDS: POTASSIUM CITRATE/CITRIC ACID SOLN 15 ML UDC PO SCH ×2 (09:00→13:00)
[2017-10-27] MEDS: APIXABAN 5 MG TABLET PO SCH (09:16)
[2017-10-27] MEDS: DOCUSATE SODIUM 50 MG/SENNA 8.6 MG TAB PO SCH (09:16)
[2017-10-27] MEDS: SODIUM CHLORIDE 0.9% FLUSH 10 ML FLUSH IV FLUSH SCH (09:17)
[2017-10-27] MEDS ORDERED: METOPROLOL SUCCINATE 25 MG EXTENDED RELEASE TAB PO SCH (11:00)
[2017-10-27 11:42] VITALS: BP 101/55; PULSE 81; RESP 20; TEMP 97.9; O2SAT 96
--- NOTE | 2017-10-27 13:04 | HHI.FPPN ---
Subjective Remarks Pt seen and examined this morning. No acute issues overnight. Reports feeling well today. Is wanting to go home. Reports his breathing is improved. Denies any chest pain this morning. Tolerating oral diet. Denies any fever/chills, nausea/vomiting, abdominal pain, leg pain. (Espinoza Solis MD) Objective Vitals Vital Signs Date Time Temp Pulse Resp B/P (MAP) Pulse Ox O2 Delivery O2 Flow Rate FiO2 10/27/17 11:42 97.9 81 20 101/55 (70) 96 10/27/17 07:58 98.7 82 20 124/59 (80) 94 10/27/17 07:09 46 10/27/17 02:26 98.0 79 18 110/53 (72) 98 10/27/17 02:11 71 10/26/17 20:47 98.2 80 16 117/59 (78) 98 10/26/17 16:29 97.8 77 20 128/61 (83) 97 10/26/17 13:58 82 10/26/17 13:23 98.2 84 20 132/61 (84) 95 I/O 10/26/17 10/26/17 10/26/17 10/27/17 10/27/17 10/27/17 07:00 15:00 23:00 07:00 15:00 23:00 Intake Total 300 ml Output Total 1050 ml Balance -750 ml Intake Oral 300 ml Output Urine Total 1050 ml # Voids 3 (Espinoza Solis MD) Result Diagram: 10/27/17 0602 10/27/17 0602 Imaging Last Impressions Chest X-Ray 10/27/17 0800 Signed Impressions: Service Date/Time: Friday, October 27, 2017 08:26 - CONCLUSION: 1. No acute abnormality or significant interval change. Ish Vincent MD Objective Remarks GENERAL: NAD, sitting up in bed CARDIOVASCULAR: Regular rate and rhythm. RESPIRATORY: No accessory muscle use. Clear to auscultation. Breath sounds equal bilaterally. GASTROINTESTINAL: Abdomen soft, non-tender, nondistended. MUSCULOSKELETAL: Extremities without clubbing, cyanosis, or edema. No obvious deformities. NEUROLOGICAL: Awake and alert. No obvious cranial nerve deficits. Normal speech. PSYCHIATRIC: Appropriate mood and affect; insight and judgment normal. (Espinoza Solis MD) A/P Assessment and Plan Patient is a 82-year-old male with past medical history significant for A. 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 Patient was presented [facility] ED for further evaluation of shortness of breath. Patient was found to have acute on chronic ARIANE. Admitted for treatment with fluid resuscitation. Discharge Planning Today (Espinoza Solis MD) Attending Attestation Patient interviewed with present Examination performed Case discussed in detail with medical residents Agree with contents in note See orders (Roverto Jean MD) Problem List: (1) ARIANE (acute kidney injury) ICD Codes: N17.9 - Acute kidney failure, unspecified Plan: Patient with acute on chronic ARIANE -hold lisinopril, metolazone -IVF at 110 mls/hr -Cr-2.32--> improved to 1.5 today (2) A-fib ICD Codes: I48.91 - Unspecified atrial fibrillation Status: Chronic Plan: -c/w eliquis QD (3) CHF (congestive heart failure) ICD Codes: I50.9 - Heart failure, unspecified Status: Chronic Plan: Patient states he has history of CHF. Stable. -Consider doing Echo outpatient (4) DANA on CPAP ICD Codes: G47.33 - Obstructive sleep apnea (adult) (pediatric) Status: Acute Plan: Patient uses CPAP for sleep -Pt advised to have family members bring in CPAP machine for his use overnight (5) HTN (hypertension) ICD Codes: I10 - Essential (primary) hypertension Status: Chronic Plan: -hold lisinopril and metolazone -resume amlodipine tomorrow -Will continue to monitor vital signs (6) Nutrition, metabolism, and development symptoms ICD Codes: R63.8 - Other symptoms and signs concerning food and fluid intake Plan: Fluids: 100mls/hr Electrolytes: replete as needed Nutrition: Heart healthy DVT ppx: c/w with home eliquis (Espinoza Solis MD) Problem Qualifiers (1) A-fib: Qualified Codes: I48.2 - Chronic atrial fibrillation Espinoza Solis MD Oct 27, 2017 13:04 Roverto Jean MD Oct 27, 2017 18:13
--- NOTE | 2017-10-27 13:07 | HHI.DCPOC ---
Discharge Care Plan Diagnosis: (1) Fflnh-mr-nkwsrwc kidney injury (2) CHF (congestive heart failure) (3) HTN (hypertension) Goals to Promote Your Health * To prevent worsening of your condition and complications * To maintain your health at the optimal level Directions to Meet Your Goals Take your medications as prescribed Follow your dietary instruction Follow activity as directed Keep your appointments as scheduled Take your immunizations and boosters as scheduled If your symptoms worsen call your PCP, if no PCP go to Urgent Care Center or Emergency Room Smoking is Dangerous to Your Health. Avoid second hand smoke Call the 24-hour hour crisis hotline for domestic abuse at Espinoza Solis MD Oct 27, 2017 13:07
== END 2017-10-27 13:45 | disposition home or self-care (01) ==
LOC: NEPC 08:27 → NEDA 11:45 → NEPGCP 12:57
PROVIDERS: ADMIT Family Medicine; ATTEND Family Medicine
DX: I13.0 Hypertensive heart and chronic kidney disease with heart failure and stage 1 through stage 4 chronic kidney disease, or unspecified chronic kidney disease (principal); I95.9 Hypotension, unspecified; I25.10 Atherosclerotic heart disease of native coronary artery without angina pectoris; Z95.0 Presence of cardiac pacemaker; N17.9 Acute kidney failure, unspecified; G47.33 Obstructive sleep apnea (adult) (pediatric); I42.9 Cardiomyopathy, unspecified; R06.02 Shortness of breath; R42 Dizziness and giddiness; Z79.01 Long term (current) use of anticoagulants; M19.90 Unspecified osteoarthritis, unspecified site; E78.00 Pure hypercholesterolemia, unspecified; K56.7 Ileus, unspecified; Z87.442 Personal history of urinary calculi; Z86.73 Personal history of transient ischemic attack (TIA), and cerebral infarction without residual deficits; G51.0 Bell's palsy; Z95.1 Presence of aortocoronary bypass graft; Z79.899 Other long term (current) drug therapy; I48.0 Paroxysmal atrial fibrillation; Z96.652 Presence of left artificial knee joint
CPT/HCPCS: 71045; 71046; 80053; 82550; 82552; 83605; 83880; 84484; 85025; 85610; 85730; 87040; 93005; 96360; 96361; 99285; G0378; J1265; J7030; J7040